=== PATIENT | female | born 1945 | race Caucasian/White ===

== ENCOUNTER → 2016-10-08 | Outpatient (CLI) | payer MEDICARE ==
[~2016-10-08] MED LIST: APIX5TAB PO; ASPI-999 PO; BUPR300T51 PO; CALC-794 PO; DOCU-143 PO; ESCI20TA45 PO; FURO-125 PO; GABA-486 PO; HYDR-3816 PO; LISI1TAB6 PO; LORA0.5T PO; MELA5TAB14 PO; MELO15TA39 PO; METO-333 PO; METO100T2 PO; MULT-35 PO; OXYC-464 PO; POTA10CA43 PO; ROSU10TA PO; VITA1TAB44 PO
--- OUTSIDE RECORDS SUMMARY | 2016-10-08 15:36 | XMS REPORT | Continuity of Care Document ---
Author Author [facility] Organization [facility] Address Unknown Phone Unavailable Care Team Providers Care Implementation Director Name Role Phone Self, Noble PCP [phone] Source Comments Some departments are not documenting in the electronic medical record. If you do not see the information that you expected, contact Release of Information in the Health Information Management department at [phone] for further assistance in locating additional records.[facility] Active Allergies and Adverse Reactions Not on File Current Medications Not on file Active Problems Not on file Social History Tobacco Use Types Packs/Day Years Used Date Never Assessed Plan of Care Health Maintenance Due Date Last Done Comments Physical (Comprehensive) 1952 Exam Pertussis Vaccine 1956 Tetanus Vaccine 1962 Breast Cancer Screening 1985 Colorectal Cancer 1995 Screening Shingles Vaccine 2005 Osteoporosis Screening 2010 Prevnar/Pneumovax (#1) 2010 Influenza Vaccine 05/02/2016 Results from Last 3 Months Not on file
[2016-10-08 16:24] LABS: ALBUMIN 4.2 G/DL (3.2-4.5); ANION GAP 8 MMOL/L (5-14); BLOOD UREA NITROGEN 12 MG/DL (7-18); BUN/CREATININE RATIO 14; CALCIUM 10.3 MG/DL (8.5-10.1); CARBON DIOXIDE 29 MMOL/L (21-32); CHLORIDE 102 MMOL/L (98-107); CREATININE SERUM 0.84 MG/DL (0.60-1.30); GFR ESTIMATED > 60; GLUCOSE 92 MG/DL (70-105); MAGNESIUM 1.9 MG/DL (1.8-2.4); PHOSPHORUS 2.4 MG/DL (2.3-4.7); POTASSIUM 3.8 MMOL/L (3.6-5.0); SODIUM 139 MMOL/L (135-145)
== END ==
LOC: LAB 15:32
PROVIDERS: ATTEND Internal Medicine Critical Care Medicine
DX: I10 Essential (primary) hypertension (principal)
CPT/HCPCS: 36415; 80069; 83735

== ENCOUNTER → 2017-02-04 | Outpatient (CLI) | payer MEDICARE ==
[2017-02-04 16:04] LABS: ALBUMIN 4.4 G/DL (3.2-4.5); CALCIUM 10.2 MG/DL (8.5-10.1); CREATININE SERUM 1.04 MG/DL (0.60-1.30); MAGNESIUM 2.3 MG/DL (1.8-2.4); PHOSPHORUS 2.8 MG/DL (2.3-4.7); POTASSIUM 3.9 MMOL/L (3.6-5.0)
== END ==
LOC: LAB 15:24
PROVIDERS: ATTEND Internal Medicine Critical Care Medicine
DX: I10 Essential (primary) hypertension (principal)
CPT/HCPCS: 36415; 80069; 83735

== ENCOUNTER 2017-03-06 15:34 | Emergency (ER) | payer MEDICARE ==
[~2017-03-06] VITALS: Ht 170.2 cm; Wt 73.7 kg
[2017-03-06 17:15] LABS: BILIRUBIN,URINE NEGATIVE (NEGATIVE); KETONES,URINE NEGATIVE (NEGATIVE); LEUKOCYTE ESTERASE ,URINE NEGATIVE (NEGATIVE); NITRITE,URINE NEGATIVE (NEGATIVE); PH,URINE 7 (5-9); PROTEIN,URINE NEGATIVE (NEGATIVE); UROBILINOGEN,URINE NORMAL (NORMAL)
[2017-03-06 17:29] LABS: WBC,URINE RARE /HPF
--- NOTE | 2017-03-06 17:39 | Diagnostic Imaging Report ---
INDICATION: Fell last night. EXAMINATION: Pelvis and hips dated 03/06/2017. FINDINGS: Five views of the pelvis and hips. There is no evidence for acute fracture or dislocation. The hip joint spaces demonstrate narrowing and spurring. Spurring at the pubic symphysis is also noted. IMPRESSION: 1. No evidence for an acute fracture. Degenerative findings as noted. Dictated by: Dictated on workstation # [id number]
--- NOTE | 2017-03-06 17:44 | Diagnostic Imaging Report ---
EXAMINATION: CT brain, CT cervical spine, CT maxillofacial bones dated 03/06/2017. TECHNIQUE: Multiple contiguous axial images were obtained through the head, neck, and facial bones without the use of intravenous contrast. Sagittal and coronal reformations through the cervical spine and facial bones were also performed. INDICATION: Fell last night, face is bruised. Left eye swelling. COMPARISON: Comparison made to a brain dated 08/10/2009. FINDINGS: BRAIN: Marked diffuse chronic ischemic disease is seen in a periventricular distribution. A definite superimposed acute infarct is not seen although could be of obscured by the diffuse chronic changes. There is no evidence for acute hemorrhage. No mass, mass effect, or midline shift is seen, and there is no hydrocephalus. The calvarium is intact with no acute sinus disease appreciated. IMPRESSION: 1. No acute process within the brain with marked chronic changes as discussed above. CT MAXILLOFACIAL BONES: Soft tissue swelling is noted anterior and inferior to the left globe. The globe itself appears to be intact. The surrounding osseous structures are intact as well. No fractures are identified. There is motion artifact noted along the mandible bilaterally limiting evaluation for an acute fracture, especially on the right as there are multiple lucencies seen in the right mandible on the reconstructed coronal imaging, most likely caused by motion. IMPRESSION: 1. No definite acute osseous abnormality is seen along the maxillofacial bones, although there is motion artifact limiting evaluation with irregularity seen along the right mandible and portions of the left mandible as well. These findings are likely on the basis of the motion artifact, but clinical correlation for any point tenderness in these areas would be recommended. 2. Soft tissue swelling as described. 3. Not mentioned in the body of the report, irregularity along the nasal bones, left worse than right, is noted. This is age indeterminate. An acute nondisplaced fracture is not excluded; correlate for point tenderness. CT CERVICAL SPINE: There is intervertebral disc space narrowing with anterior and posterior spurring at C5-C6 and C6-C7. Remaining levels demonstrate mild degenerative changes to a lesser degree. No significant subluxations are seen. No compression deformities appreciated. Diffuse multilevel facet hypertrophy is seen causing areas of bilateral neural foraminal narrowing. Spur disc complexes are suspected at multiple levels as well. At least moderate central narrowing is seen at C5-C6 and C6-C7. The lung apices are clear. The prevertebral soft tissues demonstrate no evidence for acute disease. IMPRESSION: 1. Degenerative changes throughout the cervical spine as described above with no acute fractures appreciated. Dictated by: Dictated on workstation # [id number]
[2017-03-06 17:53] LABS: BASOPHILS % (AUTO) 1 % (0-10); EOSINOPHILS # (AUTO) 0.3 10^3/uL (0.0-0.3); EOSINOPHILS % (AUTO) 4 % (0-10); LYMPHOCYTES # (AUTO) 1.7 X 10^3 (1.0-4.0); LYMPHOCYTES % (AUTO) 30 % (12-44); MEAN CORPUSCULAR HEMOGLOBIN 31 PG (25-34); MEAN CORPUSCULAR HGB CONC 34 G/DL (32-36); MEAN CORPUSCULAR VOLUME 90 FL (80-99); MEAN PLATELET VOLUME 10.4 FL (7.4-10.4); MONOCYTES # (AUTO) 0.8 X 10^3 (0.0-1.0); MONOCYTES % (AUTO) 14 % (0-12); NEUTROPHILS % (AUTO) 52 % (42-75); PLATELET COUNT 145 10^3/uL (130-400); RED BLOOD COUNT 3.85 10^6/uL (4.35-5.85); RED CELL DISTRIBUTION WIDTH 12.3 % (10.0-14.5); WHITE BLOOD COUNT 5.8 10^3/uL (4.3-11.0)
--- NOTE | 2017-03-06 17:54 | ED General ---
General Chief Complaint: Trauma-Non Activation Stated Complaint: PT FELL/FACIAL BRUISING/BODY PAIN Nursing Triage Note: PT REPORTS FALLING FROM STANDING POSITION LAST NIGHT AND HITTING HER FACE ON AN UNKNOWN OBJECT. PT HAS MODERATE SWELLING AND BRUISING NOTED TO THE L SIDE OF HER FACE. SHE DENIES LOC. Nursing Sepsis Screen: No Definite Risk History of Present Illness Time Seen by Provider: 16:25 Initial Comments Evaluation for bruising left side of face. Patient reports falling yesterday on her sidewalk. She denies loss of consciousness at the time of the fall or headache at the present time. She has had no vision changes since the fall. Location Injury Occurred: PT HOME Timing/Duration: 12-24 Hours Severity: Mild Modifying Factors: improves with Rest Associated Systoms: Denies Symptoms Allergies and Home Medications Allergies Coded Allergies: Penicillins (Unverified Allergy, Unknown, 06/20/15) Home Medications Apixaban 5 Mg Tablet, 5 MG PO BID for 30 Days Prescribed by: MONTY FRANKLIN on 06/22/15 1429 Aspirin 81 Mg Tab.chew, 81 MG PO DAILY, (Reported) B Complex with Vitamin C 1 Each Tablet.er, 1 TAB PO DAILY, (Reported) Bupropion HCl 300 Mg Tab.er.24h, 300 MG PO DAILY, (Reported) Calcium Carb & Citrate/Vit D3 1 Each Tablet.er, 2 TAB PO DAILY, (Reported) Docusate Sodium 100 Mg Capsule, 300 MG PO DAILY, (Reported) Escitalopram Oxalate 20 Mg Tablet, 20 MG PO HS, (Reported) Furosemide 20 Mg Tablet, 20 MG PO DAILY, #30 Prescribed by: MONTY FRANKLIN on 06/22/15 1429 Gabapentin 100 Mg Capsule, 100 MG PO TID, (Reported) Lisinopril/Hydrochlorothiazide 1 Each Tablet, 1 TAB PO DAILY, (Reported) Lorazepam 0.5 Mg Tablet, 0.5 MG PO Q8H PRN for PRN, (Reported) Melatonin 5 Mg Tablet, 5 MG PO HS, (Reported) Meloxicam 15 Mg Tablet, 15 MG PO DAILY, (Reported) Metoprolol Tartrate 100 Mg Tablet, 100 MG PO BID, #60 Prescribed by: MONTY FRANKLIN on 06/22/15 1435 Multivitamin 1 Each Tablet, 1 TAB PO DAILY, (Reported) Oxycodone HCl/Acetaminophen 1 Each Tablet, 1 TAB PO Q4H PRN for PRN, (Reported) Potassium Chloride 10 Meq Capsule.er, 10 MEQ PO BID, (Reported) Rosuvastatin Calcium 10 Mg Tablet, 10 MG PO HS, (Reported) Constitutional: no symptoms reported, see HPI EENTM: other (pain in the left cheek and merline-orbital.), see HPI Respiratory: no symptoms reported, see HPI Cardiovascular: no symptoms reported, see HPI Gastrointestinal: no symptoms reported, see HPI Genitourinary: no symptoms reported, see HPI Musculoskeletal: no symptoms reported, see HPI, joint pain, muscle pain, muscle cramps, other (generalized joint and muscle pain, the patient reports these are chronic in nature. Since the fall she is mainly been having pain in bilateral hips.) Skin: no symptoms reported, see HPI Psychiatric/Neurological: No Symptoms Reported, See HPI Hematologic/Lymphatic: No Symptoms Reported, See HPI Immunological/Allergic: no symptoms reported, see HPI All Other Systems Reviewed Negative Unless Noted: Yes Past Gjffcxy-Pvqmzx-Qljqps Hx Patient Social History Alcohol Use: Denies Use Recreational Drug Use: No Smoking Status: Former Smoker Type Used: Cigarettes Former Smoker/When Quit: Mar 01, 2014 2nd Hand Smoke Exposure: No Recent Foreign Travel: No Contact w/Someone Who Travel: No Recent Infectious Disease Expo: No Recent Hopitalizations: No Immunizations Up To Date Tetanus Booster (TDap): Less than 5yrs PED Vaccines UTD: No Date of Pneumonia Vaccine: Sep 01, 2012 Date of Influenza Vaccine: Jun 13, 2015 Seasonal Allergies Seasonal Allergies: No Surgeries HX Surgeries: Yes (implanted nerve stimulator) Surgeries: Cardiac, Hysterectomy, Tonsillectomy Respiratory Hx Respiratory Disorders: No Cardiovascular Hx Cardiac Disorders: Yes Cardiac Disorders: High Cholesterol, Hypertension, Valvular Heart Disease Neurological Hx Neurological Disorders: Yes (spinal stenosis) Neurological Disorders: Stroke Reproductive System Hx Reproductive Disorders: No Sexually Transmitted Disease: No HIV/AIDS: No Female Reproductive Disorders: Denies 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 Genitourinary Hx Genitourinary Disorders: No Gastrointestinal Hx Gastrointestinal Disorders: No Musculoskeletal Hx Musculoskeletal Disorders: Yes (SPINAL STENOSIS- STIMULATOR IN BACK) Endocrine Hx Endocrine Disorders: No HEENT HX ENT Disorders: No Loss of Vision: Denies Hearing Impairment: Hard of Hearing Cancer Hx Cancer: No Psychosocial Hx Psychiatric Problems: Yes Behavioral Health Disorders: Anxiety, Depression Integumentary HX Skin/Integumentary Disorder: No Blood Transfusions Hx Blood Disorders: No Adverse Reaction to a Blood Tr: No Reviewed Nursing Assessment Reviewed/Agree w Nursing PMH: Yes Family Medical History Significant Family History: No Pertinent Family Hx, Stroke Physical Exam Vital Signs Vital Sign - Last 12Hours 03/06/17 16:25 Temp 98.3 Pulse 57 Resp 16 B/P (MAP) 109/71 Pulse Ox 97 O2 Delivery Room Air Capillary Refill : Less Than 3 Seconds General Appearance: No Apparent Distress, WD/WN Eyes: Right Eye Normal Inspection, Left Eye Other (marked ecchymosis about the left orbit and maxillary arch.), Bilateral Eye EOMI, Bilateral Eye PERRL HEENT: TMs Normal, Normal ENT Inspection, Pharynx Normal, No Photophobia Neck: Full Range of Motion, Normal Inspection, Supple, No Lymphadenopathy (L), No Lymphadenopathy (R), Tender Lateral, Tender Midline Respiratory: Chest Non Tender, Lungs Clear, Normal Breath Sounds Cardiovascular: Regular Rate, Rhythm, No Edema, Normal Peripheral Pulses Gastrointestinal: Normal Bowel Sounds, No Organomegaly, No Pulsatile Mass, Non Tender, Soft Back: Normal Inspection, No CVA Tenderness, No Vertebral Tenderness Extremity: Normal Capillary Refill, Normal Inspection, Normal Range of Motion, No Calf Tenderness, No Pedal Edema, Other (full range of motion to bilateral hips, knees and ankles.) Neurologic/Psychiatric: Alert, Oriented x3, No Motor/Sensory Deficits, Normal Mood/Affect, gravity flow irrigator II-XII Norm as Tested Skin: Normal Color, Warm/Dry Progress/Results/Core Measures Results/Orders Lab Results Laboratory Tests Test 03/06/17 17:03 03/06/17 17:42 Range/Units Urine Color YELLOW Urine Clarity CLEAR Urine pH 7 5-9 Urine Specific [place] 1.005 L 1.016-1.022 Urine Protein NEGATIVE NEGATIVE Urine Glucose (UA) NEGATIVE NEGATIVE Urine Ketones NEGATIVE NEGATIVE Urine Nitrite NEGATIVE NEGATIVE Urine Bilirubin NEGATIVE NEGATIVE Urine Urobilinogen NORMAL NORMAL MG/DL Urine Leukocyte Esterase NEGATIVE NEGATIVE Urine RBC (Auto) NEGATIVE NEGATIVE Urine RBC NONE /HPF Urine WBC RARE /HPF Urine Squamous Epithelial Cells 5-10 /HPF Urine Crystals NONE /LPF Urine Bacteria MODERATE H /HPF Urine Casts NONE /LPF Urine Mucus NEGATIVE /LPF Urine Culture Indicated NO White Blood Count 5.8 4.3-11.0 10^3/uL Red Blood Count 3.85 L 4.35-5.85 10^6/uL Hemoglobin 11.8 11.5-16.0 G/DL Hematocrit 35 35-52 % Mean Corpuscular Volume 90 80-99 FL Mean Corpuscular Hemoglobin 31 25-34 PG Mean Corpuscular Hemoglobin Concent 34 32-36 G/DL Red Cell Distribution Width 12.3 10.0-14.5 % Platelet Count 145 130-400 10^3/uL Mean Platelet Volume 10.4 7.4-10.4 FL Neutrophils (%) (Auto) 52 42-75 % Lymphocytes (%) (Auto) 30 12-44 % Monocytes (%) (Auto) 14 H 0-12 % Eosinophils (%) (Auto) 4 0-10 % Basophils (%) (Auto) 1 0-10 % Neutrophils # (Auto) 3.0 1.8-7.8 X 10^3 Lymphocytes # (Auto) 1.7 1.0-4.0 X 10^3 Monocytes # (Auto) 0.8 0.0-1.0 X 10^3 Eosinophils # (Auto) 0.3 0.0-0.3 10^3/uL Basophils # (Auto) 0.0 0.0-0.1 10^3/uL Prothrombin Time 16.5 H 12.2-14.7 SEC INR Comment 1.4 0.8-1.4 Activated Partial Thromboplast Time 41 H 24-35 SEC Sodium Level 137 135-145 MMOL/L Potassium Level 4.0 3.6-5.0 MMOL/L Chloride Level 99 98-107 MMOL/L Carbon Dioxide Level 31 21-32 MMOL/L Anion Gap 7 5-14 MMOL/L Blood Urea Nitrogen 18 7-18 MG/DL Creatinine 1.14 0.60-1.30 MG/DL Estimat Glomerular Filtration Rate 47 BUN/Creatinine Ratio 16 Glucose Level 87 70-105 MG/DL Calcium Level 9.9 8.5-10.1 MG/DL Total Bilirubin 0.8 0.1-1.0 MG/DL Aspartate Amino Transf (AST/SGOT) 22 5-34 U/L Alanine Aminotransferase (ALT/SGPT) 18 0-55 U/L Alkaline Phosphatase 78 40-136 U/L Total Protein 6.6 6.4-8.2 GM/DL Albumin 4.0 3.2-4.5 GM/DL My Orders Orders - NEAL WEISS Cbc With Automated Diff (7/6/17 16:38) Comprehensive Metabolic Panel (03/06/17 16:38) Protime With Inr (03/06/17 16:38) Partial Thromboplastin Time (03/06/17 16:38) Ua Culture If Indicated (03/06/17 16:38) Ct Head/Face/Cervical Wo (03/06/17 16:38) Pelvis/Guille Hips 3-4 Views (03/06/17 17:06) Vital Signs/I&O Vital Sign - Last 12Hours 03/06/17 16:25 Temp 98.3 Pulse 57 Resp 16 B/P (MAP) 109/71 Pulse Ox 97 O2 Delivery Room Air Blood Pressure Mean: 84 Progress Note : Time: 16:25 Progress Note Initial evaluation completed. Recommended CT of the head and face and cervical spine. As well as x-ray of the pelvis and bilateral hips. CBC, PT PTT and INR, CMP and UA. Patient declined any need for pain medication or muscle relaxants at this time. [address] and x-rays with the patient and her daughter, no acute injuries noted. 1745 reviewed discharge plans with the patient and her daughter, no questions or concerns at this time. She'll follow up with Dr. Banks Diagnostic Imaging Diagonstic Imaging: CT Plain Films/CT/US/NM/MRI: c-spine, head, other (face) Comments NAME: YUNIEL DE GUZMAN [facility] REC#: [id number] PT STATUS: REG ER : 1945 PHYSICIAN: NEAL WEISS ADMIT DATE: 03/06/17/ER Draft Date of Exam:03/06/17 CT HEAD/FACE/CERVICAL WO EXAMINATION: CT brain, CT cervical spine, CT maxillofacial bones dated 03/06/2017. TECHNIQUE: Multiple contiguous axial images were obtained through the head, neck, and facial bones without the use of intravenous contrast. Sagittal and coronal reformations through the cervical spine and facial bones were also performed. INDICATION: Fell last night, face is bruised. Left eye swelling. COMPARISON: Comparison made to a brain dated 08/10/2009. FINDINGS: BRAIN: Marked diffuse chronic ischemic disease is seen in a periventricular distribution. A definite superimposed acute infarct is not seen although could be of obscured by the diffuse chronic changes. There is no evidence for acute hemorrhage. No mass, mass effect, or midline shift is seen, and there is no hydrocephalus. The calvarium is intact with no acute sinus disease appreciated. IMPRESSION: 1. No acute process within the brain with marked chronic changes as discussed above. CT MAXILLOFACIAL BONES: Soft tissue swelling is noted anterior and inferior to the left globe. The globe itself appears to be intact. The surrounding osseous structures are intact as well. No fractures are identified. There is motion artifact noted along the mandible bilaterally limiting evaluation for an acute fracture, especially on the right as there are multiple lucencies seen in the right mandible on the reconstructed coronal imaging, most likely caused by motion. IMPRESSION: 1. No definite acute osseous abnormality is seen along the maxillofacial bones, although there is motion artifact limiting evaluation with irregularity seen along the right mandible and portions of the left mandible as well. These findings are likely on the basis of the motion artifact, but clinical correlation for any point tenderness in these areas would be recommended. 2. Soft tissue swelling as described. 3. Not mentioned in the body of the report, irregularity along the nasal bones, left worse than right, is noted. This is age indeterminate. An acute nondisplaced fracture is not excluded; correlate for point tenderness. CT CERVICAL SPINE: There is intervertebral disc space narrowing with anterior and posterior spurring at C5-C6 and C6-C7. Remaining levels demonstrate mild degenerative changes to a lesser degree. No significant subluxations are seen. No compression deformities appreciated. Diffuse multilevel facet hypertrophy is seen causing areas of bilateral neural foraminal narrowing. Spur disc complexes are suspected at multiple levels as well. At least moderate central narrowing is seen at C5-C6 and C6-C7. The lung apices are clear. The prevertebral soft tissues demonstrate no evidence for acute disease. IMPRESSION: 1. Degenerative changes throughout the cervical spine as described above with no acute fractures appreciated. Dictated on workstation # [id number] Dict: 03/06/17 1726 Trans: 03/06/17 1743 [id number] Interpreted by: LORY MAX MD Electronically signed by: Diagonstic Imaging: Xray Plain Films/CT/US/NM/MRI: pelvis Comments NAME: YUNIEL DE GUZMAN Cecelia [facility] REC#: [id number] PT STATUS: REG ER : 1945 PHYSICIAN: NEAL WEISS ADMIT DATE: 03/06/17/ER Draft Date of Exam:03/06/17 PELVIS/GUILLE HIPS 3-4 VIEWS INDICATION: Fell last night. EXAMINATION: Pelvis and hips dated 03/06/2017. FINDINGS: Five views of the pelvis and hips. There is no evidence for acute fracture or dislocation. The hip joint spaces demonstrate narrowing and spurring. Spurring at the pubic symphysis is also noted. IMPRESSION: 1. No evidence for an acute fracture. Degenerative findings as noted. Dictated on workstation # [id number] Dict: 03/06/17 173 Trans: 03/06/17 173 [id number] Interpreted by: LORY MAX MD Electronically signed by: Departure Impression Impression: Primary Impression: Fall Qualified Codes: W19.XXXA - Unspecified fall, initial encounter Additional Impression: Contusion of face Qualified Codes: S00.83XA - Contusion of other part of head, initial encounter Disposition: 01 HOME, SELF-CARE Condition: Stable Departure-Patient Inst. Decision time for Depature: 18:00 Referrals: CAPRI BANKS MD (PCP/Family) Primary Care Physician Patient Instructions: Contusion (DC), Eye Contusion (DC), Preventing Falls in the Older Adult Add. Discharge Instructions: Ice packs to left side of face 20 minutes every 2 hours. Tylenol 650 mg every 6 hours for pain. Return to emergency department for headache, visual changes, dizziness, new complaints or concerns. Follow-up with Dr. Banks next week. All discharge instructions reviewed with patient and/or family. Voiced understanding. Copy Copies To 1: CAPRI BANKS MD, AMY ARNP Mar 06, 2017 17:54
[2017-03-06 18:03] LABS: INR 1.4 (0.8-1.4); PROTHROMBIN TIME PATIENT 16.5 SEC (12.2-14.7)
[2017-03-06 18:14] LABS: BILIRUBIN,TOTAL 0.8 MG/DL (0.1-1.0); CALCIUM 9.9 MG/DL (8.5-10.1); CREATININE SERUM 1.14 MG/DL (0.60-1.30); TOTAL PROTEIN 6.6 GM/DL (6.4-8.2)
[2017-03-06 18:26] VITALS: BP 109/71
--- OUTSIDE RECORDS SUMMARY | 2017-03-11 04:06 | XMS REPORT | Continuity of Care Document ---
Author Author [facility] Organization [facility] Address Unknown Phone Unavailable Care Team Providers Care Director Of Sustainability Programs Name Role Phone Self, oNble PCP [phone] Source Comments Some departments are not documenting in the electronic medical record. If you do not see the information that you expected, contact Release of Information in the Health Information Management department at [phone] for further assistance in locating additional records.[facility] Active Allergies and Adverse Reactions Not on File Current Medications Not on file Active Problems Not on file Social History Tobacco Use Types Packs/Day Years Used Date Never Assessed Plan of Care Health Maintenance Due Date Last Done Comments Hepatitis C Screening 1945 Physical (Comprehensive) 1952 Exam Pertussis Vaccine 1956 Tetanus Vaccine 1962 Breast Cancer Screening 1985 Colorectal Cancer 1995 Screening Shingles Vaccine 2005 Osteoporosis Screening 2010 Prevnar/Pneumovax (#1) 2010 Influenza Vaccine 05/02/2017 Results from Last 3 Months Not on file
--- OUTSIDE RECORDS SUMMARY | 2017-03-11 04:07 | XMS REPORT | Continuity of Care Document ---
Author Author [facility] Organization [facility] Address Unknown Phone Unavailable Allergies Active Description Code Type Severity Reaction Onset Reported/Identified Relationship to Patient Clinical Status Yes Penicillins [id number] Drug Allergy Unknown N/A 06/20/2015 Medications Problems Date Dx Coded Attending Type Code Diagnosis Diagnosed By 01/09/2012 Ot 724.4 LUMBOSACRAL NEURITIS NOS 01/09/2012 Ot V57.1 PHYSICAL THERAPY NEC 06/21/2015 TYREE MANSFIELD, Janes FREEMAN Ot E78.0 06/21/2015 TYREE MANSFIELD, Janes FREEMAN Ot F32.9 06/21/2015 TYREE MANSFIELD, Janes FREEMAN Ot F41.9 06/21/2015 TYREE MANSFIELD, Janes FREEMAN Ot I10 06/21/2015 TYREE MANSFIELD, Janes FREEMAN Ot I34.0 06/21/2015 TYREE MANSFIELD, Janes FREEMAN Ot I42.9 06/21/2015 TYREE MANSFIELD, Janes FREEMAN Ot I48.91 06/21/2015 TYREE MANSFIELD, Janes FREEMAN Ot I50.21 06/21/2015 TYREE MANSFIELD, Janes FREEMAN Ot M48.00 06/21/2015 TYREE MANSFIELD, Janes FREEMAN Ot Z86.73 06/21/2015 TYREE MANSFIELD, Janes FREEMAN Ot Z87.891 06/21/2015 TYREE MANSFIELD, Janes FREEMAN Ot E78.0 06/21/2015 TYREE MANSFIELD, Janes FREEMAN Ot F32.9 06/21/2015 TYREE MANSFIELD, Janes FREEMAN Ot F41.9 06/21/2015 TYREE MANSFIELD, Janes FREEMAN Ot I10 06/21/2015 TYREE MANSFIELD, Janes FREEMAN Ot I48.91 06/21/2015 TYREE MANSFIELD, M PETE Ot M48.00 06/21/2015 TYREE MANSFIELD, M PETE Ot R07.89 06/21/2015 TYREE MANSFIELD, M PETE Ot R11.0 06/21/2015 TYREE MANSFIELD, M PETE Ot Z86.73 06/21/2015 TYREE MANSFIELD, M PETE Ot Z87.891 06/22/2015 TYREE MANSFIELD, M PETE Ot E78.0 06/22/2015 TYREE MANSFIELD, M PETE Ot F32.9 06/22/2015 TYREE MANSFIELD, M PETE Ot F41.9 06/22/2015 TYREE MANSFIELD, M PETE Ot I10 06/22/2015 TYREE MANSFIELD, M PETE Ot I48.91 06/22/2015 TYREE MANSFIELD, M PETE Ot M48.00 06/22/2015 TYREE MANSFIELD, M PETE Ot R07.89 06/22/2015 TYREE MANSFIELD, M PETE Ot R11.0 06/22/2015 TYREE MANSFIELD, M PETE Ot Z86.73 06/22/2015 TYREE MANSFIELD, M PETE Ot Z87.891 06/22/2015 TYREE MANSFIELD, M PETE Ot E78.0 06/22/2015 TYREE MANSFIELD, M PETE Ot F32.9 06/22/2015 TYREE MANSFIELD, M PETE Ot F41.9 06/22/2015 TYREE MANSFIELD, M PETE Ot I10 06/22/2015 TYREE MANSFIELD, M PETE Ot I48.91 06/22/2015 TYREE MANSFIELD, M PETE Ot M48.00 06/22/2015 TYREE MANSFIELD, M PETE Ot R07.89 06/22/2015 TYREE MANSFIELD, M PETE Ot R11.0 06/22/2015 TYREE MANSFIELD, M PETE Ot Z86.73 06/22/2015 TYREE MANSFIELD, M PETE Ot Z87.891 06/22/2015 TYREE MANSFIELD, M PETE Ot E78.0 PURE HYPERCHOLESTEROLEMIA 06/22/2015 TYREE MANSFIELD, Janes FREEMAN Ot F32.9 MAJOR DEPRESSIVE DISORDER, SINGLE EPISOD 06/22/2015 TYREE MANSFIELD, Janes FREEMAN Ot F41.9 ANXIETY DISORDER, UNSPECIFIED 06/22/2015 TYREE MANSFIELD, Janes FREEMAN Ot I10 ESSENTIAL (PRIMARY) HYPERTENSION 06/22/2015 TYREE MANSFIELD, Janes FREEMAN Ot I34.0 NONRHEUMATIC MITRAL (VALVE) INSUFFICIENC 06/22/2015 TYREE MANSFIELD, Janes FREEMAN Ot I42.9 CARDIOMYOPATHY, UNSPECIFIED 06/22/2015 Janes CLEMENTS MD Ot I48.91 UNSPECIFIED ATRIAL FIBRILLATION 06/22/2015 Janes CLEMENTS MD Ot I50.21 ACUTE SYSTOLIC (CONGESTIVE) HEART FAILUR 06/22/2015 Janes CLEMENTS MD Ot M48.00 SPINAL STENOSIS, SITE UNSPECIFIED 06/22/2015 Janes CLEMENTS MD Ot R07.89 06/22/2015 Janes CLEMENTS MD Ot R11.0 06/22/2015 Janes CLEMENTS MD Ot Z86.73 PRSNL HX OF TIA (TIA), AND CEREB INFRC W 06/22/2015 TYREE MANSFIELD, Janes FREEMAN Ot Z87.891 PERSONAL HISTORY OF NICOTINE DEPENDENCE 06/22/2015 TYREE MANSFIELD, Janes FREEMAN Ot E78.0 06/22/2015 TYREE MANSFIELD, Janes FREEMAN Ot F32.9 06/22/2015 Janes CLEMENTS MD Ot F41.9 06/22/2015 Janes CLEMENTS MD Ot I10 06/22/2015 Janes CLEMENTS MD Ot I48.91 06/22/2015 Janes CLEMENTS MD Ot M48.00 06/22/2015 Janes CLEMENTS MD Ot R07.89 06/22/2015 TYREE MANSFIELD, Janes FREEMAN Ot R11.0 06/22/2015 Janes CLEMENTS MD Ot Z86.73 06/22/2015 Janes CLEMENTS MDN Ot Z87.891 08/16/2015 TYREE MANSFIELD, M PETE Ot E78.0 08/16/2015 TYREE MANSFIELD, M PETE Ot F32.9 08/16/2015 TYREE MANSFIELD, M PETE Ot F41.9 08/16/2015 TYREE MANSFIELD, M PETE Ot I10 08/16/2015 TYREE MANSFIELD, M PETE Ot I34.0 08/16/2015 TYREE MANSFIELD, M PETE Ot I42.9 08/16/2015 TYREE MANSFIELD, M PETE Ot I48.91 08/16/2015 TYREE MANSFIELD, M PETE Ot I50.21 08/16/2015 TYREE MANSFIELD, M PETE Ot M48.00 08/16/2015 TYREE MANSFIELD, M PETE Ot Z86.73 08/16/2015 TYREE MANSFIELD, M PETE Ot Z87.891 11/21/2015 FITO MANSFIELD, ELLY R Ot Z48.812 11/21/2015 FITO MANSFIELD, ELLY R Ot Z95.2 01/11/2016 ELLY PAYTON MD R Ot Z48.812 ENCNTR FOR SURGICAL AFTCR FOLLOWING SURG 01/11/2016 ELLY PAYTON MD R Ot Z95.2 PRESENCE OF PROSTHETIC HEART VALVE 01/12/2016 ELLY PAYTON MD R Ot Z48.812 ENCNTR FOR SURGICAL AFTCR FOLLOWING SURG 01/12/2016 ELLY PAYTON MD R Ot Z95.2 PRESENCE OF PROSTHETIC HEART VALVE 01/12/2016 ELLY PAYTON MD R Ot Z48.812 ENCNTR FOR SURGICAL AFTCR FOLLOWING SURG 01/12/2016 ELLY PAYTON MD R Ot Z95.2 PRESENCE OF PROSTHETIC HEART VALVE 01/12/2016 ELLY PAYTON MD R Ot Z48.812 ENCNTR FOR SURGICAL AFTCR FOLLOWING SURG 01/12/2016 ELLY PAYTON MD R Ot Z95.2 PRESENCE OF PROSTHETIC HEART VALVE 01/15/2016 FITO MANSFIELD, ELLY R Ot Z48.812 ENCNTR FOR SURGICAL AFTCR FOLLOWING SURG 01/15/2016 FITO MANSFIELD, ELLY R Ot Z95.2 PRESENCE OF PROSTHETIC HEART VALVE 01/16/2016 FITO MANSFIELD, ELLY R Ot I10 ESSENTIAL (PRIMARY) HYPERTENSION 01/16/2016 FITO MANSFIELD, ELLY R Ot I42.9 CARDIOMYOPATHY, UNSPECIFIED 01/16/2016 FITO MANSFIELD, ELLY R Ot I48.0 PAROXYSMAL ATRIAL FIBRILLATION 01/16/2016 FITO MANSFIELD, ELLY R Ot Z98.89 OTHER SPECIFIED POSTPROCEDURAL STATES 02/14/2016 FITO MANSFIELD, ELLY R Ot I10 ESSENTIAL (PRIMARY) HYPERTENSION 02/16/2016 FITO MANSFIELD, ELLY R Ot I10 ESSENTIAL (PRIMARY) HYPERTENSION 02/16/2016 FITO MANSFIELD, ELLY R Ot I42.9 CARDIOMYOPATHY, UNSPECIFIED 02/16/2016 FITO MANSFIELD, ELLY R Ot I48.0 PAROXYSMAL ATRIAL FIBRILLATION 02/16/2016 FITO MANSFIELD, ELLY R Ot Z98.89 OTHER SPECIFIED POSTPROCEDURAL STATES 02/23/2016 ELLY PAYTON MD R Ot I10 ESSENTIAL (PRIMARY) HYPERTENSION 02/23/2016 FITO MANSFIELD, ELLY R Ot I42.9 CARDIOMYOPATHY, UNSPECIFIED 02/23/2016 FITO MANSFIELD, ELLY R Ot I48.0 PAROXYSMAL ATRIAL FIBRILLATION 02/23/2016 FITO MANSFIELD, ELLY R Ot Z98.89 OTHER SPECIFIED POSTPROCEDURAL STATES 02/23/2016 ELLY PAYTON MD R Ot I10 ESSENTIAL (PRIMARY) HYPERTENSION 02/23/2016 ELLY PAYTON MD R Ot I42.9 CARDIOMYOPATHY, UNSPECIFIED 02/23/2016 FITO MANSFIELD, ELLY R Ot I48.0 PAROXYSMAL ATRIAL FIBRILLATION 02/23/2016 ELLY PAYTON MD R Ot Z98.89 OTHER SPECIFIED POSTPROCEDURAL STATES 03/06/2016 ELLY PAYTON MD R Ot I10 ESSENTIAL (PRIMARY) HYPERTENSION 03/13/2016 FITO MANSFIELD, ELLY R Ot I10 ESSENTIAL (PRIMARY) HYPERTENSION 03/13/2016 FITO MANSFIELD, ELLY R Ot I42.9 CARDIOMYOPATHY, UNSPECIFIED 03/13/2016 FITO MANSFIELD, ELLY R Ot I48.0 PAROXYSMAL ATRIAL FIBRILLATION 03/13/2016 FITO MANSFIELD, ELLY R Ot Z98.89 OTHER SPECIFIED POSTPROCEDURAL STATES 03/13/2016 ELLY PAYTON MD R Ot I10 ESSENTIAL (PRIMARY) HYPERTENSION 03/22/2016 FITO MANSFIELD, ELLY R Ot I10 ESSENTIAL (PRIMARY) HYPERTENSION 03/22/2016 FITO MANSFIELD, ELLY R Ot I10 ESSENTIAL (PRIMARY) HYPERTENSION 04/05/2016 FITO MANSFIELD, ELLY R Ot Z48.812 ENCNTR FOR SURGICAL AFTCR FOLLOWING SURG 04/05/2016 ELLY PAYTON MD R Ot Z95.2 PRESENCE OF PROSTHETIC HEART VALVE 04/11/2016 ELLY PAYTON MD R Ot Z48.812 ENCNTR FOR SURGICAL AFTCR FOLLOWING SURG 04/11/2016 ELLY PAYTON MD R Ot Z95.2 PRESENCE OF PROSTHETIC HEART VALVE 04/12/2016 ELLY PAYTON MD R Ot Z48.812 ENCNTR FOR SURGICAL AFTCR FOLLOWING SURG 04/12/2016 ELLY PAYTON MD R Ot Z95.2 PRESENCE OF PROSTHETIC HEART VALVE 10/08/2016 ELLY PAYTON MD R Ot I10 ESSENTIAL (PRIMARY) HYPERTENSION 10/08/2016 ELLY PAYTON MD R Ot I42.9 CARDIOMYOPATHY, UNSPECIFIED 10/08/2016 FITO MANSFIELD, ELLY R Ot I48.0 PAROXYSMAL ATRIAL FIBRILLATION 10/08/2016 ELLY PAYTON MD R Ot Z98.89 OTHER SPECIFIED POSTPROCEDURAL STATES 10/08/2016 ELLY PAYTON MD R Ot I10 ESSENTIAL (PRIMARY) HYPERTENSION 10/08/2016 ELLY PAYTON MD R Ot Z48.812 ENCNTR FOR SURGICAL AFTCR FOLLOWING SURG 10/08/2016 ELLY PAYTON MD R Ot Z95.2 PRESENCE OF PROSTHETIC HEART VALVE 10/08/2016 ELLY PAYTON MD, Ot I10 ESSENTIAL (PRIMARY) HYPERTENSION 10/08/2016 ELLY PAYTON MD Ot I42.9 CARDIOMYOPATHY, UNSPECIFIED 10/08/2016 ELLY PAYTON MD, Ot I48.0 PAROXYSMAL ATRIAL FIBRILLATION 10/08/2016 ELLY PAYTON MD Ot Z98.89 OTHER SPECIFIED POSTPROCEDURAL STATES 10/08/2016 ELLY APYTON MD, Ot I10 ESSENTIAL (PRIMARY) HYPERTENSION 10/08/2016 ELLY PAYTON MD, Ot Z48.812 ENCNTR FOR SURGICAL AFTCR FOLLOWING SURG 10/08/2016 ELLY PAYTON MD, Ot Z95.2 PRESENCE OF PROSTHETIC HEART VALVE 10/09/2016 ELLY PAYTON MD Ot I10 ESSENTIAL (PRIMARY) HYPERTENSION 10/29/2016 ELLY PAYTON MD Ot I10 ESSENTIAL (PRIMARY) HYPERTENSION 01/21/2017 ELLY PAYTON MD Ot I10 ESSENTIAL (PRIMARY) HYPERTENSION 01/21/2017 ELLY PAYTON MD, Ot I10 ESSENTIAL (PRIMARY) HYPERTENSION 02/25/2017 ELLY PAYTON MD Ot I10 ESSENTIAL (PRIMARY) HYPERTENSION Procedures Results Test Result Range Serum or plasma renal function panel (Na, K, Cl, CO2, BUN, Cr, glucose,Ca, phos , alb) - 10/08/16 15:43 Serum or plasma sodium measurement (moles/volume) 139 mmol/ L 135-145 Serum or plasma potassium measurement (moles/volume) 3.8 mmol/L 3.6-5.0 Serum or plasma chloride measurement (moles/volume) 102 mmol /L 98-107 Carbon dioxide 29 mmol/L 21-32 Serum or plasma anion gap determination (moles/volume) 8 mmol/L 5-14 Serum or plasma urea nitrogen measurement (mass/volume) 12 mg/dL 7-18 Serum or plasma creatinine measurement (mass/volume) 0.84 mg /dL 0.60-1.30 Serum or plasma urea nitrogen/creatinine mass ratio 14 NRG Serum or plasma creatinine measurement with calculation of estimated glomerular filtration rate > NRG Serum or plasma glucose measurement (mass/volume) 92 mg/dL 70-105 Serum or plasma calcium measurement (mass/volume) 10.3 mg/ dL 8.5-10.1 Serum or plasma albumin measurement (mass/volume) 4.2 g/dL 3.2-4.5 Serum or plasma phosphate measurement (mass/volume) 2.4 mg/ dL 2.3-4.7 Magnesium - 10/08/16 15:43 Magnesium 1.9 mg/dL 1.8-2.4 Serum or plasma renal function panel (Na, K, Cl, CO2, BUN, Cr, glucose,Ca, phos , alb) - 02/04/17 15:36 Serum or plasma sodium measurement (moles/volume) 139 mmol/ L 135-145 Serum or plasma potassium measurement (moles/volume) 3.9 mmol/L 3.6-5.0 Serum or plasma chloride measurement (moles/volume) 100 mmol /L 98-107 Carbon dioxide 30 mmol/L 21-32 Serum or plasma anion gap determination (moles/volume) 9 mmol/L 5-14 Serum or plasma urea nitrogen measurement (mass/volume) 16 mg/dL 7-18 Serum or plasma creatinine measurement (mass/volume) 1.04 mg /dL 0.60-1.30 Serum or plasma urea nitrogen/creatinine mass ratio 15 NRG Serum or plasma creatinine measurement with calculation of estimated glomerular filtration rate 52 NRG Serum or plasma glucose measurement (mass/volume) 109 mg/dL 70-105 Serum or plasma calcium measurement (mass/volume) 10.2 mg/ dL 8.5-10.1 Serum or plasma albumin measurement (mass/volume) 4.4 g/dL 3.2-4.5 Serum or plasma phosphate measurement (mass/volume) 2.8 mg/ dL 2.3-4.7 Magnesium - 02/04/17 15:36 Magnesium 2.3 mg/dL 1.8-2.4 Complete urinalysis with reflex to culture - 03/06/17 17:03 Urine color determination YELLOW NRG Urine clarity determination CLEAR NRG Urine pH measurement by test strip 7 5- 9 Specific gravity of urine by test strip 1.005 1.016-1.022 Urine protein assay by test strip, semi-quantitative NEGATIVE NEGATIVE Urine glucose detection by automated test strip NEGATIVE NEGATIVE Erythrocytes detection in urine sediment by light microscopy NEGATIVE NEGATIVE Urine ketones detection by automated test strip NEGATIVE NEGATIVE Urine nitrite detection by test strip NEGATIVE NEGATIVE Urine total bilirubin detection by test strip NEGATIVE NEGATIVE Urine urobilinogen measurement by automated test strip (mass/volume) NORMAL NORMAL Urine leukocyte esterase detection by dipstick NEGATIVE NEGATIVE Automated urine sediment erythrocyte count by microscopy (number/high power field) NONE NRG Automated urine sediment leukocyte count by microscopy (number/high power field ) RARE NRG Bacteria detection in urine sediment by light microscopy MODERATE NRG Squamous epithelial cells detection in urine sediment by light microscopy 5-10 NRG Crystals detection in urine sediment by light microscopy NONE NRG Casts detection in urine sediment by light microscopy NONE NRG Mucus detection in urine sediment by light microscopy NEGATIVE NRG Complete urinalysis with reflex to culture NO NRG Complete blood count (CBC) with automated white blood cell (WBC) differential - 03/06/17 17:42 Blood leukocytes automated count (number/volume) 5.8 10*3/ uL 4.3-11.0 Blood erythrocytes automated count (number/volume) 3.85 10*6 /uL 4.35-5.85 Venous blood hemoglobin measurement (mass/volume) 11.8 g/dL 11.5-16.0 Blood hematocrit (volume fraction) 35 % 35-52 Automated erythrocyte mean corpuscular volume 90 [foz_us] 80-99 Automated erythrocyte mean corpuscular hemoglobin (mass per erythrocyte) 31 pg 25-34 Automated erythrocyte mean corpuscular hemoglobin concentration measurement ( mass/volume) 34 g/dL 32-36 Automated erythrocyte distribution width ratio 12.3 % 10.0-14.5 Automated blood platelet count (count/volume) 145 10*3/uL 130-400 Automated blood platelet mean volume measurement 10.4 [foz_ us] 7.4-10.4 Automated blood neutrophils/100 leukocytes 52 % 42-75 Automated blood lymphocytes/100 leukocytes 30 % 12-44 Blood monocytes/100 leukocytes 14 % 0-12 Automated blood eosinophils/100 leukocytes 4 % 0-10 Automated blood basophils/100 leukocytes 1 % 0-10 Blood neutrophils automated count (number/volume) 3.0 10*3 1.8-7.8 Blood lymphocytes automated count (number/volume) 1.7 10*3 1.0-4.0 Blood monocytes automated count (number/volume) 0.8 10*3 0.0-1.0 Automated eosinophil count 0.3 10*3/uL 0.0-0.3 Automated blood basophil count (count/volume) 0.0 10*3/uL 0.0-0.1 Comprehensive metabolic panel - 03/06/17 17:42 Serum or plasma sodium measurement (moles/volume) 137 mmol/ L 135-145 Serum or plasma potassium measurement (moles/volume) 4.0 mmol/L 3.6-5.0 Serum or plasma chloride measurement (moles/volume) 99 mmol/ L 98-107 Carbon dioxide 31 mmol/L 21-32 Serum or plasma anion gap determination (moles/volume) 7 mmol/L 5-14 Serum or plasma urea nitrogen measurement (mass/volume) 18 mg/dL 7-18 Serum or plasma creatinine measurement (mass/volume) 1.14 mg /dL 0.60-1.30 Serum or plasma urea nitrogen/creatinine mass ratio 16 NRG Serum or plasma creatinine measurement with calculation of estimated glomerular filtration rate 47 NRG Serum or plasma glucose measurement (mass/volume) 87 mg/dL 70-105 Serum or plasma calcium measurement (mass/volume) 9.9 mg/dL 8.5-10.1 Serum or plasma total bilirubin measurement (mass/volume) 0.8 mg/dL 0.1-1.0 Serum or plasma alkaline phosphatase measurement (enzymatic activity/volume) 78 U/L 40-136 Serum or plasma aspartate aminotransferase measurement (enzymatic activity/ volume) 22 U/L 5-34 Serum or plasma alanine aminotransferase measurement (enzymatic activity/volume ) 18 U/L 0-55 Serum or plasma protein measurement (mass/volume) 6.6 g/dL 6.4-8.2 Serum or plasma albumin measurement (mass/volume) 4.0 g/dL 3.2-4.5 PT panel in platelet poor plasma by coagulation assay - 03/06/17 17:42 Prothrombin time (PT) in platelet poor plasma by coagulation assay 16.5 s 12.2-14.7 INR in platelet poor plasma or blood by coagulation assay 1.4 0.8-1.4 Activated partial thromboplastin time (aPTT) in platelet poor plasma bycoagulation assay - 03/06/17 17:42 Activated partial thromboplastin time (aPTT) in platelet poor plasma bycoagulation assay 41 s 24-35 Encounters ACCT No. Visit Date/Time Discharge Status Pt. Type Provider Facility Loc./Unit Complaint [id number] 03/06/2017 15:38:00 2016 18:26:00 DIS Emergency NEAL WEISS [facility] ER PT FELL/FACIAL BRUISING/BODY PAIN [id number] 04/08/2016 11:37:00 2015 00:01:00 DIS Outpatient FITO MANSFIELD, ELLY Rai [facility] CR MVREPAIR [id number] 01/03/2016 11:50:00 2015 00:01:00 DIS Outpatient FITO MANSFIELD, ELLY Rai [facility] CR MVREPAIR [id number] 06/20/2015 22:48:00 2014 14:23:00 DIS Inpatient Janes CLEMENTS MD [facility] CSD NEW ONSET AFIB [id number] 02/04/2017 15:24:00 ACT Outpatient ELLY PAYTON MD [facility] LAB I10 [id number] 10/08/2016 15:32:00 ACT Outpatient ELLY PAYTON MD [facility] LAB HYPERTENSION [id number] 04/12/2016 10:00:[facility] CR MVREPAIR [id number] 02/09/2016 11:03:00 ACT Outpatient ELLY PAYTON MD [facility] LAB HYPERTENSION [id number] 01/15/2016 10:57:00 ACT Outpatient ELLY PAYTON MD [facility] LAB CARDIOMYOPATHY,ATRIAL FIB,MITRAL VALVE REPAIR, HTN [id number] 01/09/2012 11:09:00 Document Registration
== END 2017-03-06 18:26 | disposition home or self-care (01) ==
LOC: EDUNIT# 15:34 → ER 15:38
DX: S00.83XA Contusion of other part of head, initial encounter (principal); I10 Essential (primary) hypertension; E78.00 Pure hypercholesterolemia, unspecified; M48.00 Spinal stenosis, site unspecified; F41.9 Anxiety disorder, unspecified; F32.9 Major depressive disorder, single episode, unspecified; Z86.73 Personal history of transient ischemic attack (TIA), and cerebral infarction without residual deficits; Z79.82 Long term (current) use of aspirin; Z87.891 Personal history of nicotine dependence; Z79.01 Long term (current) use of anticoagulants; W01.10XA Fall on same level from slipping, tripping and stumbling with subsequent striking against unspecified object, initial encounter
CPT/HCPCS: 36415; 70450; 70486; 72125; 73522; 80053; 81000; 85025; 85610; 85730; 99283

== ENCOUNTER → 2019-01-27 | Outpatient (CLI) | payer MEDICARE ==
[~2019-01-27] MED LIST changes: +HYDR-34 PO; -HYDR-3816 PO; +METO100T12 PO; -METO100T2 PO; -ROSU10TA PO; +ROSU10TA22 PO
[2019-01-27 15:16] LABS: BASOPHILS % (AUTO) 1 % (0-10); EOSINOPHILS # (AUTO) 0.1 10^3/uL (0.0-0.3); EOSINOPHILS % (AUTO) 1 % (0-10); HEMATOCRIT 37 % (35-52); HEMOGLOBIN 12.5 G/DL (11.5-16.0); LYMPHOCYTES % (AUTO) 16 % (12-44); MEAN CORPUSCULAR HEMOGLOBIN 30 PG (25-34); MEAN CORPUSCULAR HGB CONC 34 G/DL (32-36); MEAN CORPUSCULAR VOLUME 88 FL (80-99); MEAN PLATELET VOLUME 9.8 FL (7.4-10.4); MONOCYTES # (AUTO) 0.5 X 10^3 (0.0-1.0); MONOCYTES % (AUTO) 8 % (0-12); NEUTROPHILS # (AUTO) 4.6 X 10^3 (1.8-7.8); NEUTROPHILS % (AUTO) 75 % (42-75); PLATELET COUNT 180 10^3/uL (130-400); RED CELL DISTRIBUTION WIDTH 12.9 % (10.0-14.5); WHITE BLOOD COUNT 6.2 10^3/uL (4.3-11.0)
[2019-01-27 15:36] LABS: ALANINE AMINOTRANSFERASE 19 U/L (0-55); ALBUMIN 4.6 GM/DL (3.2-4.5); ALKALINE PHOSPHATASE 67 U/L (40-136); BILIRUBIN,TOTAL 0.5 MG/DL (0.1-1.0); BUN/CREATININE RATIO 13; CALCIUM 11.3 MG/DL (8.5-10.1); CARBON DIOXIDE 29 MMOL/L (21-32); CHLORIDE 103 MMOL/L (98-107); CHOLESTEROL 136 MG/DL (< 200); CREATININE SERUM 1.24 MG/DL (0.60-1.30); GFR ESTIMATED 42; GLUCOSE 109 MG/DL (70-105); HDL CHOLESTEROL 44 MG/DL (40-60); POTASSIUM 4.4 MMOL/L (3.6-5.0); SODIUM 140 MMOL/L (135-145); TOTAL PROTEIN 7.7 GM/DL (6.4-8.2); TRIGLYCERIDES 142 MG/DL (<150); VLDL CHOLESTEROL 28 MG/DL (5-40)
[2019-01-27 16:01] LABS: FREE T4 (FREE THYROXINE) 0.83 NG/DL (0.70-1.48)
== END ==
LOC: LAB 15:01
PROVIDERS: ATTEND Internal Medicine Critical Care Medicine
DX: I10 Essential (primary) hypertension (principal); E78.00 Pure hypercholesterolemia, unspecified; I48.91 Unspecified atrial fibrillation; Z95.2 Presence of prosthetic heart valve
CPT/HCPCS: 36415; 80053; 80061; 80162; 83735; 84439; 84443; 85025

== ENCOUNTER → 2019-07-01 | Outpatient (CLI) | payer MEDICARE ==
[~2019-07-01] MED LIST changes: +DOXY100T2 PO
--- NOTE | 2019-07-01 16:28 | Diagnostic Imaging Report ---
INDICATION: Cough. COMPARISON: 06/21/2015 FINDINGS: Frontal and lateral radiographic views of the chest were obtained and show stable cardiac silhouette and pulmonary vasculature. Sternotomy wires and neurostimulator leads are noted. Note is also made of metallic screw projecting over the region of the right atrium, possibly within the distal esophagus. Lungs show asymmetric volume loss on the right with some atelectasis along the minor fissure. Otherwise, lungs are clear. There is no large effusion or pneumothorax. Osseous structures show scoliotic deformity to the lower thoracic spine with multilevel degenerative changes. IMPRESSION: 1. Metallic screw projecting over the right atrium, potentially within the distal esophagus. Clinical correlation is recommended. If further evaluation is indicated, esophagram would be of benefit. 2. Asymmetric volume loss on the right with atelectasis adjacent to the minor fissure. Dictated by: Dictated on workstation # [id number]
== END ==
LOC: RAD 15:30
PROVIDERS: ATTEND Internal Medicine Critical Care Medicine
DX: J98.11 Atelectasis (principal); R05 Cough; Z98.890 Other specified postprocedural states
CPT/HCPCS: 71046

== ENCOUNTER 2019-07-02 15:41 | Emergency (ER) | payer MEDICARE ==
[~2019-07-02] VITALS: Ht 167.7 cm; Wt 35.7 kg
[~2019-07-02 15:41] MED LIST changes: -DOXY100T2 PO; +LISI1TAB29 PO; -LISI1TAB6 PO
--- NOTE | 2019-07-02 17:44 | ED General ---
General Chief Complaint: Cough/Cold/Flu Symptoms Stated Complaint: ABNORMAL CHEST XR,COUGH Nursing Triage Note: PT AMBULATE TO [facility] WITH C/O "SOMETHING METALIC IN XRAY". PT STATES SHE HAD AN XRAY YESTERDAY ORDERED BY HER PCP AND SOMETHING METALIC WAS SEEN. PT WAS INSTRUCTED TO COME TO ED FOR EVALUATION. Nursing Sepsis Screen: No Definite Risk Source of Information: Patient Exam Limitations: No Limitations History of Present Illness Date Seen by Provider: Jul 02, 2019 Time Seen by Provider: 17:43 Initial Comments To ER with reports of something abnormal in her chest x-ray yesterday, she states there was something metallic found in her esophagus on x-ray which was ordered by her forex trader. She was instructed to come to the ER for repeat x- ray. Timing/Duration: 1-2 Days Severity: Mild Associated Systoms: Denies Symptoms Allergies and Home Medications Allergies Coded Allergies: Penicillins (Unverified Allergy, Unknown, 06/20/15) Home Medications Apixaban 5 Mg Tablet, 5 MG PO BID Prescribed by: MONTY FRANKLIN on 06/22/15 1429 Aspirin 81 Mg Tab.chew, 81 MG PO DAILY, (Reported) B Complex with Vitamin C 1 Each Tablet.er, 1 TAB PO DAILY, (Reported) Bupropion HCl 300 Mg Tab.er.24h, 300 MG PO DAILY, (Reported) Calcium Carb & Citrate/Vit D3 1 Each Tablet.er, 2 TAB PO DAILY, (Reported) Docusate Sodium 100 Mg Capsule, 300 MG PO DAILY, (Reported) Doxycycline Hyclate 100 Mg Tablet, 100 MG PO BID Prescribed by: DUNIA SIERRA on 07/02/191947 Escitalopram Oxalate 20 Mg Tablet, 20 MG PO HS, (Reported) Furosemide 20 Mg Tablet, 20 MG PO DAILY Prescribed by: MONTY FRANKLIN on 06/22/15 1429 Gabapentin 100 Mg Capsule, 100 MG PO TID, (Reported) Lisinopril/Hydrochlorothiazide 1 Each Tablet, 1 TAB PO DAILY, (Reported) Lorazepam 0.5 Mg Tablet, 0.5 MG PO Q8H PRN for PRN, (Reported) Melatonin 5 Mg Tablet, 5 MG PO HS, (Reported) Meloxicam 15 Mg Tablet, 15 MG PO DAILY, (Reported) Metoprolol Tartrate 100 Mg Tablet, 100 MG PO BID Prescribed by: MONTY FRANKLIN on 06/22/15 1435 Multivitamin 1 Each Tablet, 1 TAB PO DAILY, (Reported) Oxycodone HCl/Acetaminophen 1 Each Tablet, 1 TAB PO Q4H PRN for PRN, (Reported) Potassium Chloride 10 Meq Capsule.er, 10 MEQ PO BID, (Reported) Rosuvastatin Calcium 10 Mg Tablet, 10 MG PO HS, (Reported) Patient Home Medication List Home Medication List Reviewed: Yes Review of Systems Review of Systems Constitutional: see HPI EENTM: see HPI Respiratory: cough Cardiovascular: no symptoms reported Genitourinary: no symptoms reported Musculoskeletal: no symptoms reported Skin: no symptoms reported Psychiatric/Neurological: No Symptoms Reported Past Ipmtpuy-Xgvjhn-Qbhkms Hx Patient Social History Alcohol Use: Denies Use Recreational Drug Use: No Smoking Status: Former Smoker Type Used: Cigarettes 2nd Hand Smoke Exposure: No Recent Foreign Travel: No Contact w/Someone Who Travel: No Recent Infectious Disease Expo: No Recent Hopitalizations: No Physical Abuse: No Sexual Abuse: No Mistreated: No Fear: No Immunizations Up To Date Tetanus Booster (TDap): Less than 5yrs PED Vaccines UTD: No Date of Pneumonia Vaccine: Sep 01, 2012 Date of Influenza Vaccine: Jun 13, 2015 Seasonal Allergies Seasonal Allergies: No Past Medical History Surgeries: Yes (implanted nerve stimulator, MITRAL AND TRICUSPID VALVE REPAIRS) Cardiac, Hysterectomy, Tonsillectomy Respiratory: No Currently Using CPAP: No Currently Using BIPAP: No Cardiac: Yes High Cholesterol, Hypertension, Valvular Heart Disease Neurological: Yes (spinal stenosis) Stroke Reproductive Disorders: No Female Reproductive Disorders: Denies 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 Sexually Transmitted Disease: No HIV/AIDS: No Genitourinary: No Gastrointestinal: No Musculoskeletal: Yes (SPINAL STENOSIS- STIMULATOR IN BACK) Endocrine: No Loss of Vision: Denies Hearing Impairment: Hard of Hearing Cancer: No Psychosocial: Yes Anxiety, Depression Integumentary: No Blood Disorders: No Adverse Reaction/Blood Tranf: No Family Medical History No Pertinent Family Hx, Stroke Physical Exam Vital Signs Vital Signs - First Documented 07/02/19 16:35 Temp 37.1 Pulse 68 Resp 18 B/P (MAP) 155/69 (97) O2 Delivery Room Air Capillary Refill : Less Than 3 Seconds Height, Weight, BMI Height: 5'7.00" Weight: 162lbs. 7.0oz. [id number]; 12.00 BMI Method:Stated General Appearance: No Apparent Distress, WD/WN Eyes: Bilateral Eye Normal Inspection, Bilateral Eye PERRL, Bilateral Eye EOMI HEENT: PERRL/EOMI, TMs Normal Neck: Full Range of Motion, Normal Inspection Respiratory: Normal Breath Sounds, No Accessory Muscle Use, No Respiratory Distress Cardiovascular: Regular Rate, Rhythm, Normal Peripheral Pulses Gastrointestinal: Normal Bowel Sounds, Soft Extremity: Normal Capillary Refill, Normal Inspection Neurologic/Psychiatric: Alert, Oriented x3 Skin: Normal Color, Warm/Dry Progress/Results/Core Measures Suspected Sepsis Recent Fever Within 48 Hours: No Infection Criteria Present: None New/Unexplained Altered Menta: No Sepsis Screen: No Definite Risk SIRS Temperature: Pulse: 68 Respiratory Rate: 18 Blood Pressure 155 /69 Mean: 97 Results/Orders My Orders Orders - DUNIA SIERRA APRN Chest Pa/Lat (2 View) (07/02/19 17:42) Ct Chest Wo (07/02/19 18:06) Vital Signs/I&O 07/02/19 07/02/19 16:35 16:40 Temp 37.1 Pulse 68 Resp 18 B/P (MAP) 155/69 (97) O2 Delivery Room Air Room Air Capillary Refill : Less Than 3 Seconds Blood Pressure Mean: 97 POS Diagnostic Imaging Diagonstic Imaging: CT Comments NAME: YUNIEL DE GUZMAN [facility] REC#: [id number] PT STATUS: REG ER : 1945 PHYSICIAN: DUNIA SIERRA APRN ADMIT DATE: 07/02/19/ER Signed POSDate of Exam:07/02/19 CT CHEST WO PROCEDURE: CT chest without contrast. TECHNIQUE: Multiple contiguous axial images were obtained through the chest without the use of intravenous contrast. Auto Exposure Controls were utilized during the CT exam to meet ALARA standards for radiation dose reduction. INDICATION: Foreign body on chest x-ray. COMPARISON: Radiograph from the same date. FINDINGS: Postsurgical changes of a CABG. Precarinal lymph node is mildly enlarged measuring 1.3 cm in AP dimension. No additional adenopathy, though evaluation for adenopathy is limited secondary to lack of intravenous contrast. Scattered vascular calcifications within the thoracic aorta and its branch vessels. No aneurysmal dilatation of the thoracic aorta. Prosthetic cardiac valves are present. No pericardial effusion. No pleural effusion. 1.2 cm metallic density appearing to correspond to a possible screw is present. This corresponds to the abnormality noted on recent radiography. This appears to be posterior and inferior to the inferior right pulmonary vein. Slight extension in the pulmonary vein not excluded based upon imaging. The left lung is clear. Extensive tree-in-bud nodularity is noted within the right upper lobe with additional linear interstitial opacities within the right upper lobe adjacent to the minor fissure. The right lung is otherwise clear. No pneumothorax. Significant mass-like mural thickening of the proximal stomach is noted. 2.7 cm indeterminate left renal hypodensity. Probable large duodenal diverticulum is partially visualized. Stimulator device is present with the battery pack within the posterior left torso with leads extending into the central spinal canal within the mid thoracic spine. Advanced scattered osseous degenerative changes, particularly within the lower thoracic and upper lumbar spine. No acute osseous abnormality. IMPRESSION: 1.2 cm metallic density with the morphology consistent with a screw is identified immediately adjacent and abutting the right inferior pulmonary vein. This is of uncertain etiology, origin, or significance. Recommend clinical correlation. Extensive tree-in-bud nodularity within the right upper lobe which is typically seen with an underlying infectious or inflammatory process. This is associated with a mildly prominent precarinal lymph node which is favored to be reactive in nature. Mass-like mural thickening of the proximal stomach. This may simply relate to gastritis, though neoplasm would be an additional consideration. Nonemergent upper GI examination versus endoscopy is recommended for further evaluation. Indeterminate left renal hypodensity. Statistically this likely relates to a cyst, though is technically indeterminate on this examination. Renal ultrasound could help to further evaluate. Additional findings as above. Dictated by: Dictated on workstation # [id number] Dict: 07/02/191823 Trans: 07/02/19 [id number] Interpreted by: BEAU DANG MD Electronically signed by: BEAU DANG MD 07/02/191849 Departure Impression Primary Impression: thickening of the proximal stomach Additional Impressions: foreign body next to pulmonary vein Pneumonia Disposition: HOME, SELF-CARE Condition: Stable Departure-Patient Inst. Decision time for Depature: 19:47 Referrals: SELFCAPRI MD (PCP/Family) Primary Care Physician Patient Instructions: Pneumonia in Adults Add. Discharge Instructions: 1. Antibiotics as directed for the infected appearance of the right upper lobe. Lung. You need to have an endoscopy which is a camera down the esophagus to look at the esophagus and stomach in the next few weeks because this area appeared thickened on CT scan. The foreign body seen on chest x-ray appears to be a screw, follow-up with Dr. persaud, this should not be of any significance or relationship to any of your symptoms but it does warrant follow-up with Dr. persaud. Scripts Doxycycline Hyclate (Doxycycline Hyclate) 100 Mg Tablet 100 MG PO BID, #14 TAB Prov: DUNIA SIERRA APRN 07/02/19 Copy Copies To 1: SELFCAPRI MD, PETER J APRN Jul 02, 2019 17:43 POS
--- NOTE | 2019-07-02 18:11 | Diagnostic Imaging Report ---
INDICATION: Cough. COMPARISON: 07/01/2019 and 06/21/2015. TECHNIQUE: Frontal and lateral radiographs of the chest are obtained dated 07/02/2019. FINDINGS: Postsurgical changes of a median sternotomy with associated prosthetic cardiac valve is again noted. Stimulator leads are again identified extending into the mid thoracic spine central spinal canal. A 1.1 cm metallic density appearing to correlate to a possible screw is noted within the central aspect of the chest just to the right of midline. This is stable from the prior examination one day prior, though is new since 2014. The cardiac silhouette is within normal limits in size. No significant pulmonary vascular congestion. Scarring within the right midlung. The lungs otherwise appear clear. No pleural effusion. No pneumothorax. Scattered osseous degenerative changes without acute osseous abnormality. IMPRESSION: 1. Metallic density possibly related to a screw is again identified overlying the right lower chest. This could be within the right atrium or possibly within the distal esophagus. This is new since 2014. Recommend clinical correlation. Additionally, a CT of the chest would help to further evaluate exact location of this metallic density. 2. Additional findings as described above including scarring/atelectasis within the right midlung. Dictated by: Dictated on workstation # [id number]
--- NOTE | 2019-07-02 18:40 | Diagnostic Imaging Report ---
PROCEDURE: CT chest without contrast. TECHNIQUE: Multiple contiguous axial images were obtained through the chest without the use of intravenous contrast. Auto Exposure Controls were utilized during the CT exam to meet ALARA standards for radiation dose reduction. INDICATION: Foreign body on chest x-ray. COMPARISON: Radiograph from the same date. FINDINGS: Postsurgical changes of a CABG. Precarinal lymph node is mildly enlarged measuring 1.3 cm in AP dimension. No additional adenopathy, though evaluation for adenopathy is limited secondary to lack of intravenous contrast. Scattered vascular calcifications within the thoracic aorta and its branch vessels. No aneurysmal dilatation of the thoracic aorta. Prosthetic cardiac valves are present. No pericardial effusion. No pleural effusion. 1.2 cm metallic density appearing to correspond to a possible screw is present. This corresponds to the abnormality noted on recent radiography. This appears to be posterior and inferior to the inferior right pulmonary vein. Slight extension in the pulmonary vein not excluded based upon imaging. The left lung is clear. Extensive tree-in-bud nodularity is noted within the right upper lobe with additional linear interstitial opacities within the right upper lobe adjacent to the minor fissure. The right lung is otherwise clear. No pneumothorax. Significant mass-like mural thickening of the proximal stomach is noted. 2.7 cm indeterminate left renal hypodensity. Probable large duodenal diverticulum is partially visualized. Stimulator device is present with the battery pack within the posterior left torso with leads extending into the central spinal canal within the mid thoracic spine. Advanced scattered osseous degenerative changes, particularly within the lower thoracic and upper lumbar spine. No acute osseous abnormality. IMPRESSION: 1.2 cm metallic density with the morphology consistent with a screw is identified immediately adjacent and abutting the right inferior pulmonary vein. This is of uncertain etiology, origin, or significance. Recommend clinical correlation. Extensive tree-in-bud nodularity within the right upper lobe which is typically seen with an underlying infectious or inflammatory process. This is associated with a mildly prominent precarinal lymph node which is favored to be reactive in nature. Mass-like mural thickening of the proximal stomach. This may simply relate to gastritis, though neoplasm would be an additional consideration. Nonemergent upper GI examination versus endoscopy is recommended for further evaluation. Indeterminate left renal hypodensity. Statistically this likely relates to a cyst, though is technically indeterminate on this examination. Renal ultrasound could help to further evaluate. Additional findings as above. Dictated by: Dictated on workstation # [id number]
--- NOTE | 2019-07-02 19:02 | NUR ---
Recieved report from BORIS Pat to assume care of pt @ this time.
--- NOTE | 2019-07-02 19:40 | NUR ---
Pt requesting to take scheduled personal home medication (5mg Oxycodone). Nicolas Renteria APRN notified and verbalized it is acceptable to take medication. Pt notified.
[2019-07-02] MEDS ORDERED: DOXY100T2 PO (19:48)
[2019-07-02] MEDS ORDERED: DOXYCYCLINE 100 MG (VIBRAMYCIN) TABLET PO SCH (20:15)
[2019-07-02 20:23] VITALS: BP 158/93
== END 2019-07-02 20:24 | disposition home or self-care (01) ==
LOC: EDUNIT# 15:41 → ER 15:42
DX: T17.808A Unspecified foreign body in other parts of respiratory tract causing other injury, initial encounter (principal); K31.89 Other diseases of stomach and duodenum; J18.9 Pneumonia, unspecified organism; I10 Essential (primary) hypertension; E78.00 Pure hypercholesterolemia, unspecified; F41.9 Anxiety disorder, unspecified; F32.9 Major depressive disorder, single episode, unspecified; Z86.73 Personal history of transient ischemic attack (TIA), and cerebral infarction without residual deficits; Z88.0 Allergy status to penicillin; Z79.82 Long term (current) use of aspirin; Z79.01 Long term (current) use of anticoagulants; Z87.891 Personal history of nicotine dependence; Z90.710 Acquired absence of both cervix and uterus
CPT/HCPCS: 71046; 71250

== ENCOUNTER 2019-12-23 23:33 | Emergency (ER) | payer MEDICARE ==
[~2019-12-23] VITALS: Ht 165 cm; Wt 68.0 kg
--- NOTE | 2019-12-24 00:18 | ED Fall/Injury ---
General Chief Complaint: Trauma-Non Activation Stated Complaint: FALL Nursing Triage Note: fell off of porch at home. c/o right sided shoulder and right knee pain. Source: patient, EMS Exam Limitations: no limitations History of Present Illness Date Seen by Provider: Dec 23, 2019 Time Seen by Provider: 23:40 Initial Comments Here by EMS with report of fall at home. She had gone out to investigate her car or in that was going off. She did not turn on the light because she did not want to be seen. After she stepped out on the porch she became disoriented and felt d chris and fell down 2 steps onto the concrete on her right side. Did not hit her head. Denies head or neck pain and denies loss of consciousness. Complains of right shoulder pain and states that she hit her right anterior upper chest wall on something. She is able to walk without assistance. Summoned EMS due to the pain in her shoulder. Denies pelvic pain or instability. She is on Eliquis. Occurred: just prior to arrival (approximately 30 minutes ago) Severity: mild, moderate Injuries/Pain Location: upper extremity (right shoulder) Context: lost balance Loss of Consciousness: no loss of consciousness Modifying Factors: Improves With Immobilization; Worse With Movement Associated Symptoms (Fall): No Abdominal Pain; Chest Pain; No Confusion, No Headache, No Lightheadedness, No Muscle Spasms, No Nausea/Vomiting, No Neck Pain, No Shortness of Air, No Trouble Walking, No Vision Changes Allergies and Home Medications Allergies Coded Allergies: Penicillins (Unverified Allergy, Unknown, 06/20/15) Home Medications Apixaban 5 Mg Tablet, 5 MG PO BID Prescribed by: MONTY FRANKLIN on 06/22/15 1429 Aspirin 81 Mg Tab.chew, 81 MG PO DAILY, (Reported) B Complex with Vitamin C 1 Each Tablet.er, 1 TAB PO DAILY, (Reported) Bupropion HCl 300 Mg Tab.er.24h, 300 MG PO DAILY, (Reported) Calcium Carb & Citrate/Vit D3 1 Each Tablet.er, 2 TAB PO DAILY, (Reported) Docusate Sodium 100 Mg Capsule, 300 MG PO DAILY, (Reported) Doxycycline Hyclate 100 Mg Tablet, 100 MG PO BID Prescribed by: DUNIA SIERRA on 07/02/191947 Escitalopram Oxalate 20 Mg Tablet, 20 MG PO HS, (Reported) Furosemide 20 Mg Tablet, 20 MG PO DAILY Prescribed by: MONTY FRANKLIN on 06/22/15 1429 Gabapentin 100 Mg Capsule, 100 MG PO TID, (Reported) Lisinopril/Hydrochlorothiazide 1 Each Tablet, 1 TAB PO DAILY, (Reported) Lorazepam 0.5 Mg Tablet, 0.5 MG PO Q8H PRN for PRN, (Reported) Melatonin 5 Mg Tablet, 5 MG PO HS, (Reported) Meloxicam 15 Mg Tablet, 15 MG PO DAILY, (Reported) Metoprolol Tartrate 100 Mg Tablet, 100 MG PO BID Prescribed by: MONTY FRANKLIN on 06/22/15 1435 Multivitamin 1 Each Tablet, 1 TAB PO DAILY, (Reported) Oxycodone HCl/Acetaminophen 1 Each Tablet, 1 TAB PO Q4H PRN for PRN, (Reported) Potassium Chloride 10 Meq Capsule.er, 10 MEQ PO BID, (Reported) Rosuvastatin Calcium 10 Mg Tablet, 10 MG PO HS, (Reported) Patient Home Medication List Home Medication List Reviewed: Yes Review of Systems Review of Systems Constitutional: see HPI; No chills, No fever Eyes: No Symptoms Reported Ears, Nose, Mouth, Throat: no symptoms reported Respiratory: no symptoms reported Cardiovascular: see HPI; No edema, No palpitations Gastrointestinal: No abdominal pain, No nausea, No vomiting Genitourinary: no symptoms reported Musculoskeletal: see HPI, joint pain, muscle pain Skin: No change in color, No lesions Psychiatric/Neurological: See HPI All Other Systems Reviewed Negative Unless Noted: Yes Past Nxhdghv-Unkytu-Rihobw Hx Past Med/Social Hx: Reviewed Nursing Past Med/Soc Hx Patient Social History Alcohol Use: Denies Use Recreational Drug Use: No Type Used: Cigarettes 2nd Hand Smoke Exposure: No Recent Foreign Travel: No Contact w/Someone Who Travel: No Recent Infectious Disease Expo: No Recent Hopitalizations: No Immunizations Up To Date Tetanus Booster (TDap): Less than 5yrs PED Vaccines UTD: No Date of Pneumonia Vaccine: Sep 01, 2012 Date of Influenza Vaccine: Jun 13, 2015 Seasonal Allergies Seasonal Allergies: No Past Medical History Surgeries: Yes (implanted nerve stimulator, MITRAL AND TRICUSPID VALVE REPAIRS) Cardiac, Hysterectomy, Tonsillectomy Respiratory: No Currently Using CPAP: No Currently Using BIPAP: No Cardiac: Yes High Cholesterol, Hypertension, Valvular Heart Disease Neurological: Yes (spinal stenosis) Stroke Reproductive Disorders: No Female 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 Sexually Transmitted Disease: No HIV/AIDS: No Genitourinary: No Gastrointestinal: No Musculoskeletal: Yes (SPINAL STENOSIS- STIMULATOR IN BACK) Endocrine: No Loss of Vision: Denies Hearing Impairment: Hard of Hearing Cancer: No Psychosocial: Yes Anxiety, Depression Integumentary: No Blood Disorders: No Adverse Reaction/Blood Tranf: No Family Medical History Reviewed Nursing Family Hx No Pertinent Family Hx, Stroke Physical Exam Vital Signs Vital Signs - First Documented 12/23/19 23:37 Temp 36.6 Pulse 88 Resp 18 B/P (MAP) 172/95 (120) Pulse Ox 94 Capillary Refill : Less Than 3 Seconds Height, Weight, BMI Height: 5'7.00" Weight: 162lbs. 7.0oz. 73.256114vx; 24.00 BMI Method:Stated General Appearance: WD/WN, no apparent distress HEENT: PERRL/EOMI, TMs normal, pharynx normal Neck: non-tender, full range of motion, supple, normal inspection Cardiovascular: no murmur, irregularly irregular Respiratory: lungs clear, normal breath sounds Gastrointestinal: non tender, soft Back: normal inspection, no CVA tenderness, no vertebral tenderness Extremities: no pedal edema, pelvis stable, other (tender to the right shoulder at area proximal humerus. Right clavicle without obvious deformity. No left- sided shoulder pain. Tender to palpation anterior upper chest wall. No deformity noted.) Neurologic/Psychiatric: alert, normal mood/affect, oriented x 3 Heather Coma Score Best Eye Response: (4) Open Spontaneously Best Verbal Response: (5) Oriented Best Motor Response: (6) Obeys Commands Progress/Results/Core Measures Results/Orders Lab Results Laboratory Tests Test 12/24/19 00:30 Range/Units Urine Color YELLOW Urine Clarity CLEAR Urine pH 7.0 5-9 Urine Specific [place] <=1.005 1.016-1.022 Urine Protein NEGATIVE NEGATIVE Urine Glucose (UA) NEGATIVE NEGATIVE Urine Ketones NEGATIVE NEGATIVE Urine Nitrite NEGATIVE NEGATIVE Urine Bilirubin NEGATIVE NEGATIVE Urine Urobilinogen 0.2 < = 1.0 MG/DL Urine Leukocyte Esterase NEGATIVE NEGATIVE Urine RBC (Auto) NEGATIVE NEGATIVE Urine RBC RARE /HPF Urine WBC NONE /HPF Urine Squamous Epithelial Cells RARE /HPF Urine Crystals NONE /LPF Urine Bacteria TRACE /HPF Urine Casts NONE /LPF Urine Mucus NEGATIVE /LPF Urine Culture Indicated NO My Orders Orders - ANALI BANDA MD Ct Head Wo (12/23/19 23:45) Chest Pa/Lat (2 View) (12/24/19 00:01) Shoulder, Right, 3 Views (12/24/19 00:01) Ua Culture If Indicated (12/24/19 00:23) Vital Signs/I&O 12/23/19 23:37 Temp 36.6 Pulse 88 Resp 18 B/P (MAP) 172/95 (120) Pulse Ox 94 Blood Pressure Mean: 120 Progress Progress Note : Progress Note Seen and evaluated. CT head due to Eliquis history. X-ray right shoulder and two-view chest. Patient was allowed to take her home pain medicine. 0022: No acute findings and x-rays or CT. We will check UA due to the dizziness as patient states that she just got over a urinary tract infection. Monitor pat ient. 0100: UA complete and negative. No acute findings overall. Discharged home with return precautions. Patient verbalize understanding instructions and agreement with plan. Diagnostic Imaging Diagonstic Imaging: CT Plain Films/CT/US/NM/MRI: head Comments No acute findings Reviewed: [facility] by [facility] Diagonstic Imaging: Xray Plain Films/CT/US/NM/MRI: chest Comments No acute findings Reviewed: Reviewed by Me Diagonstic Imaging: Xray Plain Films/CT/US/NM/MRI: other Comments Right shoulder 3 view no acute findings Reviewed: Reviewed by Me Departure Impression Primary Impression: Contusion of right shoulder Qualified Codes: S40.011A - Contusion of right shoulder, initial encounter Additional Impression: Contusion of right chest wall Qualified Codes: S20.211A - Contusion of right front wall of thorax, initial encounter Disposition: HOME, SELF-CARE Condition: Improved Departure-Patient Inst. Decision time for Depature: 01:01 Referrals: SELFCAPRI MD (PCP/Family) Primary Care Physician Patient Instructions: Contusion (DC), Bruised Rib (DC), Shoulder Pain (DC) Add. Discharge Instructions: All discharge instructions reviewed with patient and/or family. Voiced understanding. Continue home medications as previously prescribed. Follow-up with your DrSavanna in a few days for recheck. Return for worse pain, swelling, weakness, breathing problems or other concerns as needed. You may use ice packs over area of concern 20 minutes per hour over the next few days as needed to reduce pain and swelling. ANALI BANDA MD Dec 24, 2019 00:18
[2019-12-24 00:35] LABS: BILIRUBIN,URINE NEGATIVE (NEGATIVE); CLARITY,URINE CLEAR; COLOR,URINE YELLOW; GLUCOSE, URINE (UA) NEGATIVE (NEGATIVE); KETONES,URINE NEGATIVE (NEGATIVE); LEUKOCYTE ESTERASE ,URINE NEGATIVE (NEGATIVE); NITRITE,URINE NEGATIVE (NEGATIVE); PROTEIN,URINE NEGATIVE (NEGATIVE)
[2019-12-24 00:52] LABS: RBC,URINE RARE /HPF
[2019-12-24 00:53] LABS: BACTERIA,URINE TRACE /HPF; SQUAMOUS EPITHELIAL CELL,UR RARE /HPF
[2019-12-24 01:11] VITALS: BP 142/89
--- NOTE | 2019-12-24 06:15 | Diagnostic Imaging Report ---
PROCEDURE: CT head without contrast. TECHNIQUE: Multiple contiguous axial images were obtained through the brain without the use of intravenous contrast. Auto Exposure Controls were utilized during the CT exam to meet ALARA standards for radiation dose reduction. INDICATION: Fall. FINDINGS: There is prominence of the ventricles and sulci. There is no hydrocephalus or cerebral edema. There is no midline shift or mass-effect. There is no intracranial mass, hemorrhage, or extra-axial fluid collection. There is some diffuse decreased attenuation of the periventricular white matter which is nonspecific. The visualized paranasal sinuses and mastoid air cells are clear. There are no regional areas of decreased attenuation appreciated to suggest an acute CVA. IMPRESSION: 1. No acute intracranial process. 2. Age-appropriate atrophy. 3. Decreased attenuation of the periventricular white matter which is nonspecific, however, likely reflects senescent change and/or chronic small vessel ischemic disease. Dictated by: Dictated on workstation # [id number]
--- NOTE | 2019-12-24 06:36 | Diagnostic Imaging Report ---
INDICATION: Pain. 3 views were obtained. FINDINGS: There is arthrosis of the acromioclavicular joint. There is no fracture or dislocation. Soft tissues are unremarkable. IMPRESSION: Degenerative changes, otherwise unremarkable. Dictated by: Dictated on workstation # [id number]
--- NOTE | 2019-12-24 06:45 | Diagnostic Imaging Report ---
INDICATION: Fall. FINDINGS: There is cardiomegaly. There is some venous congestion. There is no pleural effusion or pneumothorax. There has been a previous median sternotomy. There is no pneumothorax. Mediastinum is unremarkable. IMPRESSION: Cardiomegaly and mild central pulmonary venous congestion. Dictated by: Dictated on workstation # [id number]
== END 2019-12-24 01:11 | disposition home or self-care (01) ==
LOC: EDUNIT# 23:33 → ER 23:35
DX: S40.011A Contusion of right shoulder, initial encounter (principal); S20.211A Contusion of right front wall of thorax, initial encounter; I10 Essential (primary) hypertension; E78.00 Pure hypercholesterolemia, unspecified; F41.9 Anxiety disorder, unspecified; F32.9 Major depressive disorder, single episode, unspecified; R40.2142 Coma scale, eyes open, spontaneous, at arrival to emergency department; R40.2252 Coma scale, best verbal response, oriented, at arrival to emergency department; R40.2362 Coma scale, best motor response, obeys commands, at arrival to emergency department; Z86.73 Personal history of transient ischemic attack (TIA), and cerebral infarction without residual deficits; Z79.01 Long term (current) use of anticoagulants; Z88.0 Allergy status to penicillin; Z79.82 Long term (current) use of aspirin; W10.9XXA Fall (on) (from) unspecified stairs and steps, initial encounter; Y92.009 Unspecified place in unspecified non-institutional (private) residence as the place of occurrence of the external cause
CPT/HCPCS: 70450; 71046; 73030; 81000

== ENCOUNTER → 2019-12-23 | Outpatient (CLI) | payer MEDICARE ==
[~2019-12-23] MED LIST changes: -BUPR300T51 PO; +BUPR300T98 PO; +DOXY100T2 PO
[2019-12-23 16:24] LABS: ALBUMIN 4.6 GM/DL (3.2-4.5)
[2019-12-23 16:25] LABS: POTASSIUM 4.4 MMOL/L (3.6-5.0)
[2019-12-23 16:26] LABS: CALCIUM 10.3 MG/DL (8.5-10.1)
[2019-12-23 16:30] LABS: PHOSPHORUS 3.6 MG/DL (2.3-4.7)
[2019-12-23 16:31] LABS: CREATININE SERUM 1.31 MG/DL (0.60-1.30)
[2019-12-23 16:33] LABS: MAGNESIUM 2.2 MG/DL (1.6-2.4)
== END ==
LOC: LAB 15:49
PROVIDERS: ATTEND Internal Medicine Critical Care Medicine
DX: I10 Essential (primary) hypertension (principal)
CPT/HCPCS: 36415; 80069; 83735

== ENCOUNTER → 2020-01-25 | Outpatient (CLI) | payer MEDICARE ==
[2020-01-25 16:48] LABS: ALBUMIN 4.5 GM/DL (3.2-4.5); CALCIUM 10.4 MG/DL (8.5-10.1); CREATININE SERUM 1.18 MG/DL (0.60-1.30); PHOSPHORUS 3.5 MG/DL (2.3-4.7); POTASSIUM 5.1 MMOL/L (3.6-5.0)
== END ==
LOC: LAB 15:59
PROVIDERS: ATTEND Internal Medicine Critical Care Medicine
DX: I10 Essential (primary) hypertension (principal)
CPT/HCPCS: 36415; 80069

== ENCOUNTER → 2020-02-08 | Outpatient (CLI) | payer MEDICARE ==
[2020-02-08 15:39] LABS: ALBUMIN 4.4 GM/DL (3.2-4.5); CALCIUM 10.3 MG/DL (8.5-10.1); CREATININE SERUM 1.11 MG/DL (0.60-1.30); PHOSPHORUS 3.3 MG/DL (2.3-4.7); POTASSIUM 4.9 MMOL/L (3.6-5.0)
== END ==
LOC: LAB 15:00
PROVIDERS: ATTEND Internal Medicine Critical Care Medicine
DX: I10 Essential (primary) hypertension (principal)
CPT/HCPCS: 36415; 80069

== ENCOUNTER 2020-03-02 10:33 | Outpatient (RCR) | payer MEDICARE ==
[2020-03-13] MEDS ORDERED: DILT240C53 PO (13:49)
[2020-03-13] MEDS ORDERED: CARV6.25 PO (13:49)
[2020-03-13] MEDS ORDERED: ISOS30TA3 PO (13:49)
[2020-03-13] MEDS ORDERED: APIX5TAB PO (13:49)
[2020-03-13] MEDS ORDERED: LORA-405 PO (13:49)
[2020-03-13] MEDS ORDERED: MELO15TA39 PO (13:49)
[2020-03-13] MEDS ORDERED: MULT-1136 PO (13:49)
[2020-03-13] MEDS ORDERED: FURO-124 PO (13:49)
[2020-03-13] MEDS ORDERED: OXYC-465 PO (13:49)
[2020-03-13] MEDS ORDERED: DIGO125T3 PO (13:49)
[2020-03-13] MEDS ORDERED: LOSA50TA63 PO (13:49)
[2020-03-13] MEDS ORDERED: SPIR25TA PO (13:49)
[2020-03-13] MEDS ORDERED: DICL100G18 TP (13:49)
[2020-03-13] MEDS ORDERED: HYOS-19 SL (13:50)
[2020-03-13] MEDS ORDERED: ONDN4T PO (13:50)
== END 2020-04-24 15:58 | disposition home or self-care (01) ==
PROVIDERS: ATTEND Family Medicine
DX: M25.511 Pain in right shoulder (principal); I48.91 Unspecified atrial fibrillation; M48.00 Spinal stenosis, site unspecified; W19.XXXA Unspecified fall, initial encounter

== ENCOUNTER 2020-03-11 23:08 | Inpatient (IN) | payer MEDICARE ==
[~2020-03-11] VITALS: Ht 162 cm; Wt 67.3 kg
--- OUTSIDE RECORDS SUMMARY | 2020-03-11 23:15 | XMS REPORT ---
Author Author Smile skin lifter bacon Gigi Hill [facility] Hello Music. [facility] Secure [employer] Address [address] [address] Care Team Providers Care Night Time Babysitter Name Role Phone SELF, CAPRI Unavailable NO, LOCAL PHYSICIAN Unavailable Unavailable SELF, CAPRI Unavailable FITO MANSFIELD, ELLY Rai Unavailable Unavailable Janes CLEMENTS MD Unavailable Unavailable Janes CLEMENTS MD Unavailable Unavailable JULIETA MANSFIELD, ARMANI Arroyo Unavailable Unavailable NEAL WEISS Unavailable Unavailable BIANCA ASHTON MD Unavailable Unavailable Unavailable Unavailable SELF, CAPRI Unavailable Janes CLEMENTS MD Unavailable Unavailable Janes CLEMENST MD Unavailable Unavailable ELLY PAYTON MD Unavailable Unavailable SELF, CAPRI PCP NEAL WEISS Unavailable Unavailable DUNIA SIERRA WEDDING DAY COORDINATOR Unavailable Unavailable SOLO MANSFIELD, ANALI Parkinson Unavailable Unavailable KEM OLIVEIRA MD Unavailable Unavailable Unavailable Unavailable SELF CAPRI MANSFIELD Unavailable Unavailable Unavailable Unavailable Unavailable Unavailable Unavailable Unavailable Unavailable Unavailable Unavailable Unavailable Unavailable Unavailable Allergies The data below is from unstructured sources Allergen Type Severity Reaction Last Updated Verified Status Penicillins ([id number]) Allergy Unknown June 20, 2015 No Active Encounters Encounter Date Encounter Type Encounter Diagnosis Care Provider Facility Start: [facility] Start: Patient encounter CAPRI FRAGOSO MD [facility] Via [facility] 03-02-2020 [facility] Start: Patient encounter CAPRI FRAGOSO MD [facility] Via [facility] 02-11-2020 [facility] Start: Patient encounter CAPRI FRAGOSO MD, [facility] Via [facility] 02-08-2020 [facility] Start: [facility] Start: Patient encounter NA [facility] 01-31-2020 [facility] Start: Patient encounter ELLY Rai [facility] is 01-25-2020 procedure FITO MANSFIELD [facility] Start: Emergency department KEM OLIVEIRA MD [facility] 12-23-2019 patient visit [facility] End: 12-23-2019 Start: Patient encounter ANALI BANDA MD [facility] 12-23-2019 procedure [facility] Start: Patient encounter ELLY Rai [facility] is 12-23-2019 procedure FITO MANSFIELD [facility] Start: Patient encounter NA NA [facility] 07-06-2019 procedure [facility] ([id number]) Start: Emergency department CAPRI SELF [facility] 07-02-2019 patient visit Work Phone: [place] [phone] Start: Emergency department ANALI BANDA MD [facility] 07-02-2019 patient visit [facility] ([id number]) End: 07-02-2019 Start: Patient encounter CAPRI SELF [place] V [facility] 07-01-2019 procedure Work Phone: [place] [phone] Start: Patient encounter ELLY [facility] is 07-01-2019 procedure FITO MANSFIELD [facility] ([id number]) Start: [facility] CAPRI SELF [facility] 03-01-2019 MAIN MAIN Start: Patient encounter NA [facility] 03-01-2019 [facility] ([id number]) Start: Patient encounter NA NA [facility] 02-26-2019 procedure [facility] ([id number]) Start: Patient encounter NA NA [facility] 02-24-2019 procedure [facility] ([id number]) Start: Telephone encounter Essential (primary) CAPRI LINDSAY F [facility] 02-11-2019 hypertension MAIN Start: Telephone encounter CAPRI SELF [facility] MELVINA [facility] 02-01-2019 MAIN Start: Patient encounter CHRISTOPHER [facility] is 01-27-2019 procedure FITO MANSFIELD [facility] ([id number]) Start: Telephone encounter Essential (primary) CAPRI LINDSAY F [facility] 12-30-2018 hypertension MAIN Start: Telephone encounter CAPRI SELF [facility] FO RT JAZ 12-29-2018 MAIN Start: Telephone encounter Essential (primary) CAPRI LINDSAY F [facility] 11-12-2018 hypertension MAIN Start: Telephone encounter CAPRI SELF [facility] 11-10-2018 MAIN Start: Telephone encounter CAPRI SELF [facility] 11-09-2018 MAIN Start: Follow-up encounter Essential (primary) CAPRI LINDSAY F [facility] 10-13-2018 hypertension MAIN Start: Patient encounter NA NA Community [facility] 10-13-2018 procedure [facility] ([id number]) Start: [facility] Doctor Migration [facility] 09-18-2018 Start: [facility] Doctor Migration [facility] 09-17-2018 Start: Patient encounter CHRISTOPHER Not Availab le ([id number]) 09-03-2018 procedure FITO MANSFIELD Start: Patient encounter CHRISTOPHER [facility] is 09-03-2018 procedure FITO MANSFIELD [facility] ([id number]) Start: Telephone encounter Doctor Migration [facility] 08-30-2018 Start: Telephone encounter Doctor Migration [facility] 08-29-2018 Start: Patient encounter NA NA [facility] 05-21-2017 procedure [facility] Start: Patient encounter NEAL ISELA Not Availab le ([id number]) 03-06-2017 procedure Start: Emergency department NEAL ISELA [facility] [place] 03-06-2017 patient visit [facility] ([id number]) End: 03-06-2017 Start: Patient encounter CHRISTOPHER [facility] isti 02-04-2017 procedure FITO MANSFIELD [facility] ([id number]) Start: Patient encounter CHRISTOPHER Not Availab le ([id number]) 10-08-2016 procedure FITO MANSFIELD Start: Patient encounter CHRISTOPHER [facility] isti 10-08-2016 procedure FITO MANSFIELD [facility] ([id number]) Start: Patient encounter CHRISTOPHER [facility] isti 04-12-2016 procedure FITO MANSFIELD [facility] [place] ([id number]) Start: Patient encounter CHRISTOPHER Not Availab le ([id number]) 04-08-2016 procedure FITO MANSFIELD End: 04-11-2016 Start: Patient encounter CHRISTOPHER [facility] is 04-08-2016 procedure FITO MANSFIELD [facility] [place] ([id number]) End: 04-10-2016 Start: Patient encounter CHRISTOPHER Not Availab le ([id number]) 02-09-2016 procedure FITO MANSFIELD Start: Patient encounter CHRISTOPHER [facility] is 02-09-2016 procedure FITO MANSFIELD [facility] ([id number]) Start: Patient encounter CHRISTOPHER Not Availab le ([id number]) 01-15-2016 procedure FITO MANSFIELD Start: Patient encounter CHRISTOPHER [facility] is 01-15-2016 procedure FITO MANSFIELD [facility] [place] ([id number]) Start: Patient encounter CHRISTOPHER Not Availab le ([id number]) 01-03-2016 procedure FITO MANSFIELD End: 01-11-2016 Start: Patient encounter CHRISTOPHER [facility] is 01-03-2016 procedure FITO MANSFIELD [facility] ([id number]) End: 01-10-2016 Start: Evaluation and ROXANNA CLEMENTS MD Not Available ([id number]) 06-20-2015 management of inpatient End: 06-22-2015 Start: Evaluation and ROXANNA CLEMENTS MD [facility] 06-20-2015 management of [facility] inpatient ([id number]) End: 06-22-2015 Start: [facility] Doctor Migration [facility] 05-23-2015 Start: Patient encounter NA NA [facility] 05-25-2014 procedure [facility] Start: Patient encounter BIANCA ASHTON MD Not Availa ble ([id number]) 01-09-2012 procedure End: 01-09-2012 Medical Equipment The data below is from unstructured sourcesNo Medical Equipment Information available Goals Date Patient Goal Desired Activity/St ate Immunizations Immunizatio Immunization Notes Care Provider Facility n Date 08-12-2019 influenza, high dose NA NA [facility] seasonal, [facility] - preservative-free [facility] ([id number]) 07-02-2019 CAPRI SELF [place] Via [employer] Work Phone: Hospital ([id number]) 02-26-2019 pneumococcal NA [facility]alt [facility] polysaccharide [facility] - vaccine, 23 valent [facility] ([id number]) 08-13-2017 pneumococcal conjugate NA ROXANNA [facility]y Health vaccine, 13 valent [facility] ([id number]) 03-12-2011 tetanus toxoid, NA [facility] Hea lth reduced diphtheria Center [facility] - toxoid, and acellular [facility] pertussis vaccine, (36323) adsorbed Interventions No Information Medications Medication Drug Dates Sig Sig (Original) Class(es) (Normalized) B Complex With Vitamin C B Complex With Vitamin C Active 1 ORAL (1 source) Daily Calcium Carb & Calcium Carb & Citrate/Vit D3 Active 2 Citrate/Vit D3 ORAL Daily (1 source) doxycycline hyclate 100 Tetracycli Start: Doxycy sky Hyclate Discontinued 100 mg oral tablet ne-class 07-02-2019 ORAL Twice A Da y 14 July 02, 2019 (1 source) Drug 7:48pm (One-Time) End: 07-02-2019 Multivitamin preparation Multivitamin Active 1 OR AL Daily (1 source) Payers Date Payer Normalized Payer [id number] Plan of Treatment Date Care Activity Detail Author Patient Education Pneumonia in Adults [place] [facility] ([id number]) Patient referral [place] Via [facility] ([id number]) Problems Active Problems Problem Problem Date Last Documented Episodic/[facility] Provider Classificati Recorded Date onic on Allergic Allergy status to penicillin 02-07-2020 Episodic PETER SIERRA reactions (4 sources) Anxiety Anxiety disorder, unspecified 02-07-2020 Chronic ROXANNA CLEMENTS MD disorders (17 sources) Chronic Chronic kidney disease stage 3 ; Chronic CAPRI SELF kidney Translations: [Chronic kidney Other Phone: disease disease, stage 3 (moderate)] [phone] (3 sources) 0 Coma; Coma scale, eyes open, spontaneous, 02-07-2020 Epi sodic ANALI stupor; and at arrival to emergency department PAIUTE-SHOSHONE MD brain damage ; Translations: [COMA SCALE , BEST (9 sources) VERBAL RESPONSE, ORIENT] Congestive Acute systolic (congestive) heart Chronic ROXANNA CLEMENTS MD heart failure failure; nonhypertens richy (5 sources) Disorders of Pure hypercholesterolemia ; 02-07-2020 Chronic ROXANNA CLEMENTS MD lipid Translations: [Pure metabolism hypercholesterolemia, unspe cified] (20 sources) E Codes: Fall on same level from slipping, 02-07-2020 Episo dic NEAL ISELA Fall tripping and stumbling with (12 sources) subsequent striking against unspecified object, initial encounter ; Translations: [Fall (on) (from) unspecified stairs and steps, initial encounter] E Codes: Unspecified place in unspecified 02-07-2020 [address]isod [address] ANALI Place of non-institutional (private) TISH Zaman MD occurrence residence as the place of (3 sources) occurrence of the external cause Essential Essential (primary) hypertension ; 01-14-2020 Facility Environmental Technician [place] ROXANNA CLEMENTS MD hypertension Translations: [Essential (21 sources) hypertension] Genitourinar Female stress incontinence ; Chronic CAPRI SELF y symptoms Translations: [Urinary, Other Phone : and incontinence, stress female] [phone] ill-defined 0 conditions (1 source) Heart valve Nonrheumatic mitral (valve) Chronic ROXANNA CLEMENTS MD disorders insufficiency ; Translation s: (19 sources) [Presence of prosthetic hea rt valve] Hypertension Chronic kidney disease stage 3 due Chronic CAPRI SELF with to benign hypertension ; Other Phon e: complication Translations: [Hypertensive chronic [phone] s and kidney disease with stage 1 through 0 secondary stage 4 chronic kidney dise ase, or hypertension unspecified chronic kidney disease] (1 source) Mood Major depressive disorder, single 02-07-2020 Chron ic ROXANNA CLEMENTS MD disorders episode, unspecified (17 sources) Osteoarthrit Osteoarthritis ; Translations: Chronic CAPRI SELF is [Osteoarthritis] Other Phone: (1 source) Other penitentiary (current) use of 02-07-2020 Episodic NEAL ISELA aftercare anticoagulants (12 sources) 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 02-07-2020 Epis odic NEAL ISELA aftercare (12 sources) Other Encounter for surgical aftercare Episodic CHRISTOPHER aftercare following surgery on the [facility] (11 sources) circulatory system Other and Cerebrovascular disease ; Chronic MA XWELL SELF ill-defined Translations: [Cerebral Other Phone : cerebrovascu microvascular disease] [phone] lar disease 0 (1 source) Other Personal history of transient 02-07-2020 Episodic ROXANNA CLEMENTS MD circulatory ischemic attack (TIA), and cerebral disease infarction without residual (17 sources) deficits Other lower Cough Episodic CHRISTOPHER respiratory LONGNECKER disease (3 sources) Other Pain in right shoulder 02-07-2020 Episodic ARANZA OTHY non-traumati PAIUTE-SHOSHONE c joint disorders (4 sources) Rosemary-; Cardiomyopathy, unspecified Chronic ROXANNA CLEMENTS MD endo-; and myocarditis; cardiomyopat hy (except that caused by tuberculosis or sexually transmitted disease) (13 sources) Pleurisy; Atelectasis Episodic CHRISTOPHER pneumothorax LONGNECKER ; pulmonary MD collapse (2 sources) Rehabilitati Pessary care ; Translations: Chronic CAPRI SELF on care; [Pessary maintenance] Other Phone: fitting of [phone] prostheses; 0 and adjustment of devices (1 source) Residual Other specified postprocedural Episodic CHRISTOPHER codes; states LONGNECKER unclassified MD (2 sources) Screening Personal history of nicotine Episodic ROXANNA CLEMENTS MD and history dependence of mental health and substance abuse codes (14 sources) Spondylosis; Spinal stenosis, site unspecified ; 03-02-2020 Meena VALENZUELA SAYED intervertebr Translations: [Thoracic or MD al disc lumbosacral neuritis or disorders; radiculitis, unspecified] other back problems (16 sources) Past or Other Problems Problem Problem Date Last Documented Episodic/Chr Provider Classificati Recorded Date onic on Diabetes Hyperglycemia, unspecified ; Episodic CAPRI SELF mellitus Translations: [ - Hyperglycemia Oth er Phone: without R73.9] [phone] complication 0 (1 source) Genitourinar Delay when starting to pass urine ; Episodic CAPRI SELF y symptoms Translations: [Hesitancy of Other P hola: and micturition] [phone] ill-defined 0 conditions (2 sources) Headache; Headache ; Translations: [Left Episodic CAPRI SELF including temporal headache] Other Phone: migraine [phone] (1 source) 0 Immunization Raised antinuclear antibody ; Episodic CAPRI SELF s and Translations: [Positive NEELA Other P hola: screening (antinuclear antibody)] [phone] for 0 infectious disease (1 source) Other Care involving other physical Episodic BIANCA SAYED aftercare therapy MD (1 source) Other Other diseases of stomach and Episodic PETER SIERRA disorders of duodenum stomach and duodenum (1 source) Other Unspecified foreign body in other Episodic PETER SIERRA injuries and parts of respiratory tract causing conditions other injury, initial encou nter due to external causes (1 source) Other Skin sensation disturbance ; Episodic [employer] nervous Translations: Other Phone: system [Paresthesias/numbness] [phone] disorders 0 (1 source) Pneumonia Pneumonia ; Translations: Episodic PE TER SIERRA (except that [Pneumonia, unspecified org anism] caused by tuberculosis or sexually transmitted disease) (2 sources) Residual Other specified postprocedural Episodic CHRISTOPHER codes; states LONGNECKER unclassified MD (4 sources) 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 PETER SIERRA codes; uterus unclassified (1 source) Procedures Date Procedure Procedure Detail Performing Cl inician Start: CT of chest [employer] 07-02-2019 without contrast Work Phone: Start: Diagnostic [employer] 07-02-2019 radiography of Work Phone: chest, combined PA and lateral Start: Diagnostic [employer] 07-01-2019 radiography of Work Phone: chest, combined PA and lateral Results Test Name Value Interpreta Reference Facilit Date tion Range y Time laboratory on 2020-02-08 Albumin [Mass/Vol] 4.4 g/dL Negative 3.2-4.5 PENDING 06-0 9-2 g/dL [facility] N [facility] 11:19-0 ([id number]) 400 Anion gap 6 mmol/L Negative 5-14 PENDING 02-07-2 [Moles/Vol] mmol/L [facility] N [facility] 11:19-0 (78344) 400 Calcium [Mass/Vol] 10.3 mg/dL High 8.5-10.1 PENDING 06- 09-2 mg/dL [facility] 0[facility] N [facility] 11:19-0 (22637) 400 Chloride [Moles/Vol] 100 mmol/L Negative 98-107 PENDING 0 6-09-2 mmol/L [facility] 0[facility] N [facility] 11:19-0 (30552) 400 CO2 [Moles/Vol] 28 mmol/L Negative 21-32 PENDING 06-2 mmol/L [facility] 0[facility] N [facility] 11:19-0 (70657) 400 Creatinine 1.11 mg/dL Negative 0.60-1.30 PENDING 02-07-2 [Mass/Vol] mg/dL [facility] N [facility] 11:19-0 ([id number]) 400 Creatinine and 48 PENDING 02-07-2 Glomerular [facility] 020 filtration N [facility] 11:19-0 rate.predicted panel ([id number]) 400 - Serum, Plasma or Blood Glucose [Mass/Vol] 94 mg/dL Negative 70-105 PENDING 06-0 9-2 mg/dL [facility] 0[facility] N [facility] 11:19-0 (05526) 400 Phosphate [Mass/Vol] 3.3 mg/dL Negative 2.3-4.7 PENDING -2 mg/dL [facility] 0[facility] N [facility] 11:19-0 (69024) 400 Potassium 4.9 mmol/L Negative 3.6-5.0 PENDING 02-07-2 [Moles/Vol] mmol/L [facility] N [facility] 11:19-0 (03297) 400 Sodium [Moles/Vol] 134 mmol/L Low 135-145 PENDING -2 mmol/L [facility] 0[facility] N [facility] 11:19-0 (00864) 400 Urea nitrogen 16 mg/dL Negative 7-18 mg/dL PENDING 2 [Mass/Vol] [facility] N [facility] 11:19-0 (01934) 400 Urea 14 mg/mg PENDING 02-07-2 nitrogen/Creatinine [facility] 020 [Mass ratio] N [facility] 11:19-0 (92297) 400 laboratory on 2020-01-31 Albumin [Mass/Vol] 4.6 g/dL Normal 3.6-5.1 Communi g/dL [facility] (40318) Albumin/Globulin 1.9 {ratio} Normal 1.0-2.5 Communi [Mass ratio] (calc) [facility] (79211) ALP [Catalytic 75 U/L Normal 37-153 U/L Communi activity/Vol] ty [facility] (29953) ALT [Catalytic 22 U/L Normal 6-29 U/L Communi activity/Vol] ty [facility] (35189) AST [Catalytic 21 U/L Normal 10-35 U/L Communi activity/Vol] [facility] (33217) Basophils (Bld) 0 10*3/uL Normal 0-200 Communi [#/Vol] cells/uL ty [facility] (86653) Basophils/100 WBC 0 % Normal % Communi (Bld) ty [facility] (11900) Bilirubin [Mass/Vol] 0.6 mg/dL Normal 0.2-1.2 Commu ni mg/dL ty [facility] (79734) Calcium [Mass/Vol] 10.3 mg/dL Normal 8.6-10.4 Communi mg/dL ty [facility] (78947) Chloride [Moles/Vol] 98 mmol/L Normal 98-110 Commu ni mmol/L ty [facility] (53491) CO2 [Moles/Vol] 27 mmol/L Normal 20-32 Communi mmol/L ty [facility] (98557) Creatinine 1.11 mg/dL High 0.60-0.93 Communi [Mass/Vol] mg/dL ty [facility] (62274) Digoxin [Mass/Vol] 0.7 Low 0.8-2.0 Communi mcg/L ty [facility] (87326) Eosinophils (Bld) 0.294 10*3/uL Normal 15-500 Commun i [#/Vol] cells/uL ty [facility] (54208) Eosinophils/100 WBC 4.9 % Normal % Commun i (Bld) [facility] (54705) Erythrocyte 13.0 % Normal 11.0-15.0 Communi distribution width % ty (RBC) [Ratio] [facility] (02383) GFR/1.73 sq 57 mL/min/{1.73_m2} Low > OR = 60 Commun i M.predicted among mL/min/1.7 ty blacks MDRD 3m2 Health (S/P/Bld) [Vol Center rate/Area] [facility] (28829) GFR/1.73 sq 49 mL/min/{1.73_m2} Low > OR = 60 Commun i M.predicted MDRD mL/min/1.7 ty (S/P/Bld) [Vol 3m2 Health rate/Area] [facility] (33696) Globulin (S) 2.4 g/dL Normal 1.9-3.7 Communi [Mass/Vol] g/dL ty (calc) [facility] (69307) Glucose [Mass/Vol] 111 mg/dL High 65-99 Communi mg/dL [facility] (62678) Hematocrit (Bld) 39.7 % Normal 35.0-45.0 Communi [Volume fraction] % ty [facility] (06048) Hemoglobin (Bld) 13.2 g/dL Normal 11.7-15.5 Communi [Mass/Vol] g/dL [facility] (81136) Lymphocytes (Bld) 0.93 10*3/uL Normal 850-3900 Communi [#/Vol] cells/uL [facility] (63970) Lymphocytes/100 WBC 15.5 % Normal % Commun i (Bld) [facility] (77098) MCH (RBC) [Entitic 30.4 pg Normal 27.0-33.0 Communi mass] pg [facility] (10479) MCHC (RBC) 33.2 g/dL Normal 32.0-36.0 Communi [Mass/Vol] g/dL [facility] (64700) MCV (RBC) [Entitic 91.5 fL Normal 80.0-100.0 Communi vol] fL [facility] (85163) Monocytes (Bld) 0.468 10*3/uL Normal 200-950 Communi [#/Vol] cells/uL [facility] (81711) Monocytes/100 WBC 7.8 % Normal % Communi (Bld) ty [facility] (41811) Neutrophils (Bld) 4.308 10*3/uL Normal 6703-6948 Commun i [#/Vol] cells/uL ty [facility] (74645) Neutrophils/100 WBC 71.8 % Normal % Commun i (Bld) ty [facility] (31039) Platelet mean volume 10.0 fL Normal 7.5-12.5 Commu ni (Bld) [Entitic vol] fL ty [facility] (13016) Platelets (Bld) 199 10*3/uL Normal 140-400 Communi [#/Vol] Thousand/u ty L [facility] (27544) Platelets LM Ql ADEQUATE Normal ADEQUATE Communi (Bld) ty [facility] (34107) Potassium 5.0 mmol/L Normal 3.5-5.3 Communi [Moles/Vol] mmol/L ty [facility] (48441) Protein [Mass/Vol] 7.0 g/dL Normal 6.1-8.1 Communi g/dL ty [facility] (27963) RBC (Bld) [#/Vol] 4.34 10*6/uL Normal 3.80-5.10 Communi Million/uL ty [facility] (84305) Sodium [Moles/Vol] 133 mmol/L Low 135-146 Communi mmol/L ty [facility] (27080) Urea nitrogen 17 mg/dL Normal 7-25 mg/dL Communi [Mass/Vol] ty [facility] (45602) Urea 15 mg/mg Normal 6-22 Communi nitrogen/Creatinine (calc) ty [Mass ratio] [facility] (39500) WBC (Bld) [#/Vol] 6.0 10*3/uL Normal 3.8-10.8 Communi Thousand/u ty L [facility] (60117) laboratory on 2020-01-25 Albumin [Mass/Vol] 4.5 g/dL Negative 3.2-4.5 PENDING 05-2 6-2 g/dL [facility] N [facility] 12:15-0 (65600) 400 Anion gap 8 mmol/L Negative 5-14 PENDING 05-26-2 [Moles/Vol] mmol/L [facility] N [facility] 12:15-0 (55292) 400 Calcium [Mass/Vol] 10.4 mg/dL High 8.5-10.1 PENDING 05- 26-2 mg/dL [facility] 0[facility] N [facility] 12:15-0 (38773) 400 Chloride [Moles/Vol] 99 mmol/L Negative 98-107 PENDING 05 -26-2 mmol/L [facility] 0[facility] N [facility] 12:15-0 (81346) 400 CO2 [Moles/Vol] 25 mmol/L Negative 21-32 PENDING 05-26-2 mmol/L [facility] 0[facility] N [facility] 12:15-0 (88226) 400 Creatinine 1.18 mg/dL Negative 0.60-1.30 PENDING 05-26-2 [Mass/Vol] mg/dL [facility] N [facility] 12:15-0 (68041) 400 Creatinine and 45 Invalid PENDING 05-26-2 Glomerular Interpreta [facility] 020 filtration tion Code N [facility] 12:15-0 rate.predicted panel (09307) 400 - Serum, Plasma or Blood Glucose [Mass/Vol] 112 mg/dL High 70-105 PENDING 05-2 6-2 mg/dL [facility] 020 N [facility] 12:15-0 (62802) 400 Phosphate [Mass/Vol] 3.5 mg/dL Negative 2.3-4.7 PENDING 05 -26-2 mg/dL [facility] 020 N [facility] 12:15-0 (54916) 400 Potassium 5.1 mmol/L High 3.6-5.0 PENDING 05-26-2 [Moles/Vol] mmol/L [facility] 0[facility] N [facility] 12:15-0 (17832) 400 Sodium [Moles/Vol] 132 mmol/L Low 135-145 PENDING 05- 26-2 mmol/L [facility] 020 N [facility] 12:15-0 ([id number]) 400 Urea nitrogen 19 mg/dL High 7-18 mg/dL PENDING 05-26-2 [Mass/Vol] LOCATIO 020 N [facility] 12:15-0 (45745) 400 Urea 16 mg/mg Invalid PENDING nitrogen/Creatinine Interpreta LOCATIO 020 [Mass ratio] tion Code N [facility] 12:15-0 ([id number]) 400 laboratory on 2019-12-23 Albumin [Mass/Vol] 4.6 g/dL High 3.2-4.5 PENDING 12-01 3-2 g/dL LOCATIO 020 N S 12:00-0 ([id number]) 400 Anion gap 12 mmol/L Negative 5-14 PENDING [Moles/Vol] mmol/L LOCATIO 020 N S 12:000 (44561) 400 Bacteria LM Ql TRACE Invalid PENDING (Urine sed) Interpreta LOCATIO 020 tion Code N [facility] 20:30-0 ([id number]) 400 Bilirubin Ql (U) Negative Invalid NEGATIVE PENDING Interpreta LOCATIO 020 tion Code N [facility] 20:30-0 ([id number]) 400 Calcium [Mass/Vol] 10.3 mg/dL High 8.5-10.1 PENDING -2 mg/dL LOCATIO 020 N [facility] 12:00-0 ([id number]) 400 Casts LM Ql (Urine NONE Invalid PENDING sed) Interpreta LOCATIO 020 tion Code N [facility] 20:30-0 ([id number]) 400 Chloride [Moles/Vol] 101 mmol/L Negative 98-107 PENDING 0 23-2 mmol/L LOCATIO 020 N [facility] 12:00-0 ([id number]) 400 Clarity (U) CLEAR Invalid PENDING Interpreta LOCATIO 020 tion Code N [facility] 20:30-0 ([id number]) 400 CO2 [Moles/Vol] 25 mmol/L Negative 21-32 PENDING 12-22- mmol/L LOCATIO 020 N S 12:00-0 ([id number]) 400 Color (U) YELLOW Invalid PENDING Interpreta LOCATIO 020 tion Code N [facility] 20:30-0 ([id number]) 400 Creatinine 1.31 mg/dL High 0.60-1.30 PENDING [Mass/Vol] mg/dL LOCATIO 020 N [facility] 12:00-0 ([id number]) 400 Creatinine and 40 PENDING Glomerular LOCATIO 020 filtration N [facility] 12:00-0 rate.predicted panel (52326) 400 - Serum, Plasma or Blood Crystals LM Ql NONE Invalid PENDING (Urine sed) Interpreta LOCATIO 020 tion Code N [facility] 20:30-0 ([id number]) 400 Epithelial RARE Invalid PENDING cells.squamous LM Ql Interpreta LOCATIO 020 (Urine sed) tion Code N [facility] 20:30-0 ([id number]) 400 Glucose [Mass/Vol] 120 mg/dL High 70-105 PENDING - 3-2 mg/dL LOCATIO 020 N [facility] 12:00-0 (35884) 400 Glucose Auto test Negative Invalid NEGATIVE PENDING 12-22 strip Ql (U) Interpreta LOCATIO 020 tion Code N S 20:30-0 ([id number]) 400 Ketones Auto test Negative Invalid NEGATIVE PENDING 12-22 strip Ql (U) Interpreta LOCATIO 020 tion Code N S 20:30-0 ([id number]) 400 Leukocyte esterase Negative Invalid NEGATIVE PENDING 12-01 3-2 Test strip Ql (U) Interpreta LOCATIO 020 tion Code N [facility] 20:30-0 (48901) 400 Magnesium [Mass/Vol] 2.2 mg/dL Negative 1.6-2.4 PENDING -2 mg/dL LOCATIO 020 N [facility] 12:00-0 ([id number]) 400 Mucus Ql (Urine sed) Negative Invalid PENDING 12-22 Interpreta LOCATIO 020 tion Code N [facility] 20:30-0 (41753) 400 Nitrite Ql (U) Negative Invalid NEGATIVE PENDING Interpreta LOCATIO 020 tion Code N [facility] 20:30-0 (90973) 400 pH (U) 7.0 [pH] Invalid 5-9 PENDING Interpreta LOCATIO 020 tion Code N [facility] 20:30-0 ([id number]) 400 Phosphate [Mass/Vol] 3.6 mg/dL Negative 2.3-4.7 PENDING -2 mg/dL LOCATIO 020 N [facility] 12:00-0 ([id number]) 400 Potassium 4.4 mmol/L Negative 3.6-5.0 PENDING [Moles/Vol] mmol/L LOCATIO 020 N [facility] 12:00-0 (72505) 400 Protein Ql (U) Negative Invalid NEGATIVE PENDING Interpreta LOCATIO 020 tion Code N [facility] 20:30-0 ([id number]) 400 RBC LM.HPF (Urine RARE Invalid PENDING sed) [#/Area] Interpreta LOCATIO 020 tion Code N [facility] 20:30-0 ([id number]) 400 RBC Ql (U) Negative Invalid NEGATIVE PENDING Interpreta LOCATIO 020 tion Code N [facility] 20:30-0 ([id number]) 400 Sodium [Moles/Vol] 138 mmol/L Negative 135-145 PENDING mmol/L LOCATIO 020 N [facility] 12:00-0 (95551) 400 Specific gravity (U) <= Invalid 1.016-1.02 PENDING 0 [Rel density] Interpreta 2 LOCATIO 020 tion Code N [facility] 20:30-0 (05864) 400 Urea nitrogen 16 mg/dL Negative 7-18 mg/dL PENDING [Mass/Vol] LOCATIO 020 N [facility] 12:00-0 ([id number]) 400 Urea 12 mg/mg PENDING nitrogen/Creatinine LOCATIO 020 [Mass ratio] N [facility] 12:00-0 ([id number]) 400 Urinalysis complete NO Invalid PENDING W Reflex Culture Interpreta LOCATIO 020 panel - Urine tion Code N [facility] 20:30-0 ([id number]) 400 Urobilinogen (U) 0.2 mg/dL Invalid < = 1.0 PENDING [Mass/Vol] Interpreta mg/dL LOCATIO 020 tion Code N [facility] 20:30-0 (41589) 400 WBC LM.HPF (Urine NONE Invalid PENDING sed) [#/Area] Interpreta LOCATIO 020 tion Code N [facility] 20:30-0 ([id number]) 400 laboratory on 2019-07-06 Albumin [Mass/Vol] 4.5 g/dL Normal 3.6-5.1 Communi g/dL ty [facility] (99888) Albumin/Globulin 1.9 {ratio} Normal 1.0-2.5 Communi [Mass ratio] (calc) [facility] (06758) ALP [Catalytic 81 U/L Normal 33-130 U/L Communi activity/Vol] [facility] (52542) ALT [Catalytic 19 U/L Normal 6-29 U/L Communi activity/Vol] [facility] (96316) AST [Catalytic 19 U/L Normal 10-35 U/L Communi activity/Vol] [facility] (47157) Bilirubin [Mass/Vol] 0.5 mg/dL Normal 0.2-1.2 Commu ni mg/dL [facility] (87133) Calcium [Mass/Vol] 9.9 mg/dL Normal 8.6-10.4 Communi mg/dL [facility] (81182) Chloride [Moles/Vol] 102 mmol/L Normal 98-110 Commu ni mmol/L [facility] (65820) Cholesterol 120 mg/dL Normal <200 mg/dL Communi [Mass/Vol] [facility] (67046) Cholesterol in HDL 45 mg/dL Low >50 mg/dL Communi [Mass/Vol] [facility] (04770) Cholesterol in LDL 52 mg/dL Normal mg/dL Communi [Mass/Vol] (calc) [facility] (47502) Cholesterol non HDL 75 mg/dL Normal <130 mg/dL Commun i [Mass/Vol] (calc) [facility] (05013) Cholesterol.total/Ch 2.7 {ratio} Normal <5.0 Commu ni olesterol in HDL (calc) ty [Mass ratio] [facility] (62621) CO2 [Moles/Vol] 30 mmol/L Normal 20-32 Communi mmol/L [facility] (63153) Creatinine 0.97 mg/dL High 0.60-0.93 Communi [Mass/Vol] mg/dL ty [facility] (28871) Digoxin [Mass/Vol] 0.7 Low 0.8-2.0 Communi mcg/L ty [facility] () GFR/1.73 sq 67 mL/min/{1.73_m2} Normal > OR = 60 Commun i M.predicted among mL/min/1.7 ty blacks MDRD 3m2 Health (S/P/Bld) [Vol Center rate/Area] [facility] () GFR/1.73 sq 58 mL/min/{1.73_m2} Low > OR = 60 Commun i M.predicted MDRD mL/min/1.7 ty (S/P/Bld) [Vol 3m2 Health rate/Area] [facility] () Globulin (S) 2.4 g/dL Normal 1.9-3.7 Communi [Mass/Vol] g/dL ty (calc) [facility] () Glucose [Mass/Vol] 113 mg/dL High 65-99 Communi mg/dL ty [facility] () HbA1c (Bld) [Mass 6.2 High <5.7 % of Communi fraction] total Hgb ty [facility] () Potassium 4.4 mmol/L Normal 3.5-5.3 Communi [Moles/Vol] mmol/L ty [facility] () Protein [Mass/Vol] 6.9 g/dL Normal 6.1-8.1 Communi g/dL ty [facility] () Sodium [Moles/Vol] 139 mmol/L Normal 135-146 Communi mmol/L ty [facility] () Triglyceride 145 mg/dL Normal <150 mg/dL Communi [Mass/Vol] ty [facility] () Urea nitrogen 16 mg/dL Normal 7-25 mg/dL Communi [Mass/Vol] ty [facility] () Urea 16 mg/mg Normal 6-22 Communi nitrogen/Creatinine (calc) ty [Mass ratio] [facility] (17548) laboratory on 2019-02-26 Albumin [Mass/Vol] 4.1 g/dL Normal 3.6-5.1 Communi g/dL ty [facility] (28469) Albumin/Globulin 2.0 {ratio} Normal 1.0-2.5 Communi [Mass ratio] (calc) ty [facility] (26766) ALP [Catalytic 79 U/L Normal 33-130 U/L Communi activity/Vol] ty [facility] (29567) ALT [Catalytic 16 U/L Normal 6-29 U/L Communi activity/Vol] ty [facility] (03871) AST [Catalytic 20 U/L Normal 10-35 U/L Communi activity/Vol] ty [facility] (59526) Bilirubin [Mass/Vol] 0.4 mg/dL Normal 0.2-1.2 Commu ni mg/dL ty [facility] (02968) Calcium [Mass/Vol] 9.1 mg/dL Normal 8.6-10.4 Communi mg/dL ty [facility] (99709) Chloride [Moles/Vol] 102 mmol/L Normal 98-110 Commu ni mmol/L ty [facility] (70983) CO2 [Moles/Vol] 26 mmol/L Normal 20-32 Communi mmol/L ty [facility] (29599) Creatinine 1.15 mg/dL High 0.60-0.93 Communi [Mass/Vol] mg/dL ty [facility] (58404) Digoxin [Mass/Vol] 0.6 Low 0.8-2.0 Communi mcg/L ty [facility] (95796) GFR/1.73 sq 55 mL/min/{1.73_m2} Low > OR = 60 Commun i M.predicted among mL/min/1.7 ty blacks MDRD [address] [place] [address] (S/P/Bld) [Vol Center rate/Area] [facility] (98508) GFR/1.73 sq 47 mL/min/{1.73_m2} Low > OR = 60 Commun i M.predicted MDRD mL/min/1.7 ty (S/P/Bld) [Vol 3m2 Health rate/Area] [facility] (76566) Globulin (S) 2.1 g/dL Normal 1.9-3.7 Communi [Mass/Vol] g/dL ty (calc) [facility] (88467) Glucose [Mass/Vol] 103 mg/dL High 65-99 Communi mg/dL ty [facility] (96080) HbA1c (Bld) [Mass 5.9 High <5.7 % of Communi fraction] total Hgb ty [facility] (32636) Potassium 4.7 mmol/L Normal 3.5-5.3 Communi [Moles/Vol] mmol/L ty [facility] (36612) Protein [Mass/Vol] 6.2 g/dL Normal 6.1-8.1 Communi g/dL ty [facility] (57062) Sodium [Moles/Vol] 135 mmol/L Normal 135-146 Communi mmol/L ty [facility] (87776) Urea nitrogen 21 mg/dL Normal 7-25 mg/dL Communi [Mass/Vol] ty [facility] (80144) Urea 18 mg/mg Normal 6-22 Communi nitrogen/Creatinine (calc) ty [Mass ratio] [facility] (10816) Social History Date Type Detail Facility Start: Tobacco smoking status RIIS Ex-smoker (finding ) [place] [facility] 07-02-2019 [facility] (80192) Start: Denies [place] [facility] 07-02-2019 [facility] (66621) Start: Former Smoker [place] [facility] 07-02-2019 [facility] (05866) Start: Cigarettes [place] [facility] 07-02-2019 [facility] (08919) Start: Past History [place] [facility] 06-21-2015 [facility] (79686) Start: No [place] [facility] 06-21-2015 [facility] (27917) Start: Sex Assigned At Female [facility] 1945 [facility] (26925) Vital Signs The data below is from unstructured sources Vital Response Date/Time Temperature (Fahrenheit) 98.3 degree s F (97.6 - 99.5) 03/06/2017 4:25pm Temperature (Calculated Celsius) 36. 37438 degrees C (36.4 - 37.5) 03/06/2017 4:25pm Temperature Source Tympanic 03/06/2017 4:25pm Pulse Rate (adult) 57 bpm (60 - 90) 03/06/2017 4:25pm Respiratory Rate 16 bpm (12 - 24) 03/06/2017 4:25pm O2 Sat by Pulse Oximetry 97 % (88 - 100) 03/06/2017 4:25pm Blood Pressure 109/71 mm Hg 03/06/2017 4:25pm Blood Pressure Mean 84 mm Hg 03/06/2017 4:25pm Pain Numeric Pain Scale 4 4:25pm Height (Feet) 5 feet 01/2017 4:25pm Height (Inches) 7.00 inches 03/06/2017 4:25pm Height (Calculated Centimeters) 170. 648460 cm 03/06/2017 4:25pm Weight (Pounds) 162 pounds 03/06/2017 4:25pm Weight (Ounces) 7.0 oz 0 03/06/2017 4:25pm Weight (Calculated Grams) 00117.411 gm 03/06/2017 4:25pm Weight (Calculated Kilograms) 73.680 411 kilograms 03/06/2017 4:25pm Calculated BMI 26.15 01/2017 4:25pm Capillary Refill Capillary Refill Less Than 3 Seconds 03/06/2017 4:25pm Vital Reading Result Col lection Date/Time Vital Reading Result Col lection Date/Time Functional Status The data below is from unstructured sourcesNo functional status results.No functional status results.No functional status results.No functional status results.No functional status results.No functional status information available.No functional status information available.No Functional Status information availableNo Functional Status information available Mental Status The data below is from unstructured sourcesNo Mental Status Information Available Evaluation note Note Date & Note Facility Type Evaluation No Assessments Information Available [facility] ([id number]) History general Narrative - Reported Note Date & Note Facility Type History general Narrative - Reported Type Medical hypertension History Medical spinal stenosis History Medical depression History Medical mitral valve regurgitation History Medical Atrial fibrillation History Surgical mitral valve repair History Surgical tonsillectomy History Surgical hysterectomy History Surgical appendectomy History [facility] (01274) Advance Directives Directive Response Recor ded Date/Time Advance Directives No 1:44am Health Care Power of Nps No 06/21/15 1:44am Organ Donor No 06/21/15 1:44am Directive Response Recor ded Date/Time Advance Directives No 4:25pm Health Care Power of Nps No 03/06/17 4:25pm Organ Donor No 03/06/17 4:25pm Resuscitation Status Full Code 03/06/17 4:25pm Advance Directive Response Recorded Date/Time Advance Directives No No 2018 4:35pm Health Care Power of Nps No July 02, 2019 4:35pm Organ Donor No July 02, 2019 4:35pm Resuscitation Status Full Code July 02, 2019 4:35pm Discharge Instructions No hospital discharge instructions.No hospital discharge instructions.No hospital discharge instructions.No hospital discharge instruction information available. Chief Complaint and Reason for Visit Chief Complaint Cough/Cold/Flu Sympt oms Reason for Visit [id number] foreign body next to pulmonary vein thickening of the proximal stomach Additional Source Comments This clinical document has been generated using [employer] software that has been certified by the Office of the National Coordinator for Health Information Technology (ONC 15.99.04.3023.Diam.31.00.0.980779) and the National Committee for Business Continuity Planner (NCQA, as an eMeasure certified technology). FOR RECORDS PERTAINING TO PATIENTS WHO ARE OR HAVE BEEN ENROLLED IN A CHEMICAL D EPENDENCY/SUBSTANCE ABUSE PROGRAM, SOME INFORMATION MAY BE OMITTED. This clinica l summary was aggregated from multiple sources. Caution should be exercised in using it in the provision of clinical care. This summary normalizes information from multiple sources, and as a consequence, information in this document may ma terially change the coding, format and clinical context of patient data. In cesar tion, data may be omitted in some cases. CLINICAL DECISIONS SHOULD BE BASED ON T HE PRIMARY CLINICAL RECORDS. [employer] provides no warranty or guara ntee of the accuracy or completeness of information in this document.The followi ng information is based on time limited clinical information UNRECOGNIZED CONTENT PROVIDED BELOW FOR UNRECOGNIZED SECTION REASON FOR VISIT refill request
--- OUTSIDE RECORDS SUMMARY | 2020-03-11 23:15 | XMS REPORT | Clinical Summary ---
Author Author [facility] Address Unknown Phone Unavailable Care Team Providers Care Bankruptcy Law Specialist Name Role Phone Self, Noble MANSFIELD PCP Source Comments Some departments are not documenting in the electronic medical record. If you d o not see the information that you expected, contact [facility] in [facility] Management department at [phone] for further assistan ce in locating additional records.[facility] Allergies Not on File Medications Not on file Active Problems Not on file Social History Date Tobacco Use Types Packs/Day Years Used Never Assessed Sex Assigned at Date Recorded Not on file Industry Job Start Date Occupation Not on file Not on file Not on file Travel End Travel History Travel Start No recent travel history available. Last Filed Vital Signs Not on file Plan of Treatment Health Maintenance Due Date Last Done Comments MEDICARE ANNUAL WELLNESS 1945 VISIT DTAP/TDAP VACCINES (1 - 1963 Tdap) HEPATITIS C SCREENING 1963 PHYSICAL (COMPREHENSIVE) 1963 EXAM BREAST CANCER SCREENING 1985 COLORECTAL CANCER 1995 SCREENING SHINGLES RECOMBINANT 1995 VACCINE (1 of 2) OSTEOPOROSIS 2010 SCREENING/MONITORING PNEUMONIA (PPSV23) 2010 VACCINE (1 of 1 - PPSV23) INFLUENZA VACCINE 06/01/2020 Results Not on filefrom Last 3 Months Insurance Type Payer Benefit Subscriber ID Effective Phone Address Plan / Dates Group Medicare MEDICARE MEDICARE xxxxxxxxxx 1995- PART A AND Present B PPO [facility] AARP xxxxxxxxx 2011-P resent [id number] Advance Directives Patient Tube Buffer Explanation Type Date Recorded Advance 06/18/2013 9:27 AM Directive/DPOA
--- OUTSIDE RECORDS SUMMARY | 2020-03-11 23:16 | XMS REPORT ---
Author Author Izabel FRAGOSO [facility] Address [address] [place] [address] Care Team Providers Care Humanities Division Chair Name Role Phone CAPRI FRAGOSO Unavailable PROBLEMS Type Condition ICD9-CM Code FGU39-LC Code Onset Dates Condition S tatus SNOMED Code Problem Pessary maintenance Z46.89 17 Oct, 2010 Active 493003889 Problem Osteoarthritis M19.90 11 Oct, 2012 Active 39 8848435 Problem Cerebral microvascular disease I67.9 01 January, 011 Active 38860670 Problem Low back pain radiating to left leg M54.5 03 2013 Active 192077611 Problem Left temporal headache R51 Aug, Acti ve 54455035 Problem Urinary, incontinence, stress female N39.3 17 Oct, 2010 Active 40800082 Problem Paresthesias/numbness R20.9 Aug, Activ e 66442902 Problem Urinary hesitancy R39.11 Active 59 64563 Problem Mixed hyperlipidemia E78.2 Active 509006473 Problem A-fib I48.91 13 Jan, 2018 Active 5427296 4 Problem Chronic kidney disease (CKD), stage III (moderate) N18.3 Active 650041666 Problem Positive NEELA (antinuclear antibody) R76.8 11 2012 Active 683710174 Problem Chronic kidney disease, stage III (moderate) N18.3 Active 542735212 Problem Essential hypertension I10 Active 59120051 Problem Paroxysmal atrial fibrillation I48.0 Active 480699955 Problem Hypertensive chronic kidney disease with stage 1 through stage 4 chronic kidney disease, or unspecified chronic kidney disease I12.9 Active [id number] ALLERGIES No Information ENCOUNTERS Encounter Location Date Diagnosis [address] [id number] Mar, [address] [address] Jan, Essential hypertension I10 [facility] [address] [place] [address] Jan, [facility] [address] [place] [address] December, Essential hypertension I10 [facility] [address] [place] [address] Nov, [facility] [address] [place] [address] Oct, Essential hypertension I10 [facility] [address] [place] [address] Oct, [facility] [address] [place] [address] Oct, [facility] [address] [place] [address] Oct, Essential hypertension I10 ; Mixed hyper lipidemia E78.2 ; Hyperglycemia R73.9 ; Chronic kidney disease, stage III (moderate) N18.3 ; Urinary hesitancy R39.11 and Paroxysmal atrial fibrillation I48.0 [place] [id number] [place] [id number] [place] [phone] Sep, [place] [address] [address] [place] [id number] [place] [phone] Sep, [facility] [place] [address] [place] [id number] [place] [phone] Aug, [place] [address] [address] [place] [id number] [place] [phone] Aug, [place] [address] [address] [place] [id number] [place] [phone] May, IMMUNIZATIONS No Known Immunizations SOCIAL HISTORY Never Assessed REASON FOR VISIT refill request PLAN OF CARE VITAL SIGNS MEDICATIONS Medication Instructions Dosage Frequency Start Date End Date Duration S tatus Oxycodone-Acetaminophen 10-325 mg Orally every 6 hrs 1 tablet as ne eded 6h Oct, 28 days Active RESULTS No Results PROCEDURES No Known procedures INSTRUCTIONS MEDICATIONS ADMINISTERED No Known Medications MEDICAL (GENERAL) HISTORY Type Description Date Medical History hypertension Medical History spinal stenosis Medical History depression Medical History mitral valve regurgitation Medical History Atrial fibrillation Surgical History mitral valve repair Surgical History tonsillectomy Surgical History hysterectomy Surgical History appendectomy
--- OUTSIDE RECORDS SUMMARY | 2020-03-11 23:16 | XMS REPORT | Continuity of Care Document ---
Author Organization Unknown Address Unknown Phone Unavailable Allergies Active Description Code Type Severity Reaction Onset Reported/Identified Relationship to Patient Clinical Status Yes Penicillins [id number] Drug Aller gy Unknown N/A 06/20/2015 Medications There is no data. Problems Date Dx Coded Attending Type Code Diagnosis Diagnosed By 01/09/2012 Ot 724.4 LUMB OSACRAL NEURITIS NOS 01/09/2012 Ot V57.1 PHYS ICAL THERAPY NEC 06/21/2015 TYREE MANSFIELD, Janes FREEMAN Ot E78 .0 06/21/2015 TYREE MANSFIELD, Janes FREEMAN Ot F32 .9 06/21/2015 TYREE MANSFIELD, Janes FREEMAN Ot F41 .9 06/21/2015 TYREE MANSFIELD, Janes FREEMAN Ot I10 06/21/2015 TYREE MANSFIELD, Janes FREEMAN Ot I34 .0 06/21/2015 TYREE MANSFIELD, Janes FREEMAN Ot I42 .9 06/21/2015 TYREE MANSFIELD, Janes FREEMAN Ot I48.91 06/21/2015 TYREE MANSFIELD, Janes FREEMAN Ot I50.21 06/21/2015 TYREE MANSFIELD, Janes FREEMAN Ot M48.00 06/21/2015 TYREE MANSFIELD, Janes FREEMAN Ot Z86.73 06/21/2015 TYREE MANSFIELD, Janes FREEMAN Ot Z87.891 06/21/2015 TYREE MANSFIELD, Janes FREEMAN Ot E78 .0 06/21/2015 TYREE MANSFIELD, Janes FREEMAN Ot F32 .9 06/21/2015 TYREE MANSFIELD, Janes FREEMAN Ot F41 .9 06/21/2015 TYREE MANSFIELD, Janes FREEMAN Ot I10 06/21/2015 TYREE MANSFIELD, Janes FREEMAN Ot I48.91 06/21/2015 TYREE MANSFIELD, Janes FREEMAN Ot M48.00 06/21/2015 TYREE MANSFIELD, M PETE Ot R07.89 06/21/2015 TYREE MANSFIELD, M PETE Ot R11 .0 06/21/2015 TYREE MANSFIELD, M PETE Ot Z86.73 06/21/2015 TYREE MANSFIELD, M PETE Ot Z87.891 06/22/2015 TYREE MANSFIELD, M PETE Ot E78 .0 06/22/2015 TYREE MANSFIELD, M PETE Ot F32 .9 06/22/2015 TYREE MANSFIELD, M PETE Ot F41 .9 06/22/2015 TYREE MANSFIELD, M PETE Ot I10 06/22/2015 TYREE MANSFIELD, M PETE Ot I48.91 06/22/2015 TYREE MANSFIELD, M PETE Ot M48.00 06/22/2015 TYREE MANSFIELD, M PETE Ot R07.89 06/22/2015 TYREE MANSFIELD, M PETE Ot R11 .0 06/22/2015 TYREE MANSFIELD, M PETE Ot Z86.73 06/22/2015 TYREE MANSFIELD, M PETE Ot Z87.891 06/22/2015 TYREE MANSFIELD, M PETE Ot E78 .0 06/22/2015 TYREE MANSFIELD, M PETE Ot F32 .9 06/22/2015 TYREE MANSFIELD, M PETE Ot F41 .9 06/22/2015 TYREE MANSFIELD, M PETE Ot I10 06/22/2015 TYREE MANSFIELD, M PETE Ot I48.91 06/22/2015 TYREE MANSFIELD, M PETE Ot M48.00 06/22/2015 TYREE MANSFIELD, M PETE Ot R07.89 06/22/2015 TYREE MANSFIELD, M PETE Ot R11 .0 06/22/2015 TYREE MANSFIELD, M PETE Ot Z86.73 06/22/2015 TYREE MANSFIELD, M PETE Ot Z87.891 06/22/2015 TYREE MANSFIELD, M PETE Ot E78 .0 PURE HYPERCHOLESTEROLEMIA 06/22/2015 TYREE MANSFIELD, Janes FREEMAN Ot F32 .9 MAJOR DEPRESSIVE DISORDER, SINGLE EPISOD 06/22/2015 TYREE MANSFIELD, Janes FREEMAN Ot F41 .9 ANXIETY DISORDER, UNSPECIFIED 06/22/2015 TYREE MANSFIELD, Janes FREEMAN Ot I10 ESSENTIAL (PRIMARY) HYPERTENSION 06/22/2015 Janes CLEMENTS MD Ot I34 .0 NONRHEUMATIC MITRAL (VALVE) INSUFFICIENC 06/22/2015 Janes CLEMENTS MD Ot I42 .9 CARDIOMYOPATHY, UNSPECIFIED 06/22/2015 Janes CLEMENTS MD Ot I48.91 UNSPECIFIED ATRIAL FIBRILLATION 06/22/2015 Janes CLEMENTS MD Ot I50.21 ACUTE SYSTOLIC (CONGESTIVE) HEART FAILUR 06/22/2015 Janes CLEMENTS MD Ot M48.00 SPINAL STENOSIS, SITE UNSPECIFIED 06/22/2015 Janes CLEMENTS MD Ot R07.89 06/22/2015 Janes CLEMENTS MD Ot R11 .0 06/22/2015 Janes CLEMENTS MD Ot Z86.73 PRSNL HX OF TIA (TIA), AND CEREB INFRC W 06/22/2015 TYREE MANSFIELD, Janes FREEMAN Ot Z87.891 PERSONAL HISTORY OF NICOTINE DEPENDENCE 06/22/2015 Janes CLEMENTS MD Ot E78 .0 06/22/2015 Janes CLEMENTS MD Ot F32 .9 06/22/2015 Janes CLEMENTS MD Ot F41 .9 06/22/2015 Janes CLEMENTS MD Ot I10 06/22/2015 Janes CLEMENTS MD Ot I48.91 06/22/2015 Janes CLEMENTS MD Ot M48.00 06/22/2015 Janes CLEMENTS MD Ot R07.89 06/22/2015 Janes CLEMENTS MD Ot R11 .0 06/22/2015 Janes CLEMENTS MD Ot Z86.73 06/22/2015 Janes CLEMENTS MD Ot Z87.891 08/16/2015 TYREE MANSFIELD, M PETE Ot E78 .0 08/16/2015 TYREE MANSFIELD, M PETE Ot F32 .9 08/16/2015 TYREE MANSFIELD, M PETE Ot F41 .9 08/16/2015 TYREE MANSFIELD, M PETE Ot I10 08/16/2015 TYREE MANSFIELD, M PETE Ot I34 .0 08/16/2015 TYREE MANSFIELD, M PETE Ot I42 .9 08/16/2015 TYREE MANSFIELD, M PETE Ot I48.91 [...] Z95.2 PRESENCE OF PROSTHETIC HEART VALVE 01/15/2016 SUZI PAYTON MDER R Ot Z48.812 ENCNTR FOR SURGICAL AFTCR FOLLOWING SURG 01/15/2016 FITO MANSFIELD, ELLY R Ot Z95.2 PRESENCE OF PROSTHETIC HEART VALVE 01/16/2016 FITO MANSFIELD, ELLY R Ot I10 ESSENTIAL (PRIMARY) HYPERTENSION 01/16/2016 FITO MANSFIELD, ELLY R Ot I42.9 CARDIOMYOPATHY, UNSPECIFIED 01/16/2016 FITO MANSFIELD, ELLY R Ot I48.0 PAROXYSMAL ATRIAL FIBRILLATION 01/16/2016 FITO MANSFIELD, ELLY R Ot Z98.89 OTHER SPECIFIED POSTPROCEDURAL STATES 02/14/2016 ELLY PAYTON MD R Ot I10 ESSENTIAL (PRIMARY) HYPERTENSION 02/16/2016 [...] I10 ESSENTIAL (PRIMARY) HYPERTENSION 03/13/2016 FITO MANSFIELD, CHRISTOPHER R Ot I10 ESSENTIAL (PRIMARY) HYPERTENSION 03/13/2016 [...] R Ot I10 ESSENTIAL (PRIMARY) HYPERTENSION 10/08/2016 FITO MANSFIELD, ELLY R Ot I42.9 CARDIOMYOPATHY, UNSPECIFIED 10/08/2016 FITO MANSFIELD, ELLY R Ot I48.0 PAROXYSMAL ATRIAL FIBRILLATION 10/08/2016 ELLY PAYTON MD R Ot Z98.89 OTHER SPECIFIED POSTPROCEDURAL STATES 10/08/2016 ELLY PAYTON MD R Ot I10 ESSENTIAL (PRIMARY) HYPERTENSION 10/08/2016 ELLY PAYTON MD R Ot Z48.812 ENCNTR FOR SURGICAL AFTCR FOLLOWING SURG 10/08/2016 ELLY PAYTON MD R Ot Z95.2 PRESENCE OF PROSTHETIC HEART VALVE 10/08/2016 SUZI PAYTON MDER R Ot I10 ESSENTIAL (PRIMARY) HYPERTENSION 10/08/2016 FITO MANSFIELD, ELLY R Ot I42.9 CARDIOMYOPATHY, UNSPECIFIED 10/08/2016 FITO MANSFIELD, ELLY Rai Ot I48.0 PAROXYSMAL ATRIAL FIBRILLATION 10/08/2016 FITO MANSFIELD, ELLY Rai Ot Z98.89 OTHER SPECIFIED POSTPROCEDURAL STATES 10/08/2016 FITO MANSFIELD, ELLY R Ot I10 ESSENTIAL (PRIMARY) HYPERTENSION 10/08/2016 FITO MANSFIELD, ELLY Rai Ot Z48.812 ENCNTR FOR SURGICAL AFTCR FOLLOWING SURG 10/08/2016 FITO MANSFIELD, ELLY Rai Ot Z95.2 PRESENCE OF PROSTHETIC HEART VALVE 10/09/2016 FITO MANSFIELD, ELLY R Ot I10 ESSENTIAL (PRIMARY) HYPERTENSION 10/29/2016 FITO MANSFIELD, ELLY R Ot I10 ESSENTIAL (PRIMARY) HYPERTENSION 01/21/2017 ELLY PAYTON MD R Ot I10 ESSENTIAL (PRIMARY) HYPERTENSION 01/21/2017 FITO MANSFIELD, ELLY R Ot I10 ESSENTIAL (PRIMARY) HYPERTENSION 02/25/2017 FITO MANSFIELD, ELLY R Ot I10 ESSENTIAL (PRIMARY) HYPERTENSION 03/06/2017 NEAL WEISS Ot E78.00 PURE HYPERCHOLESTEROLEMIA, UNSPECIFIED 03/06/2017 NEAL WEISSP Ot F32.9 MAJOR DEPRESSIVE DISORDER, SINGLE EPISOD 03/06/2017 NEAL WEISSP Ot F41.9 ANXIETY DISORDER, UNSPECIFIED 03/06/2017 ISELA NEAL FARM OPERATIONS TECHNICAL DIRECTOR Ot I10 ESSENTIAL (PRIMARY) HYPERTENSION 03/06/2017 NEAL WEISS FARM OPERATIONS TECHNICAL DIRECTOR Ot M48.00 SPINAL STENOSIS, SITE UNSPECIFIED 03/06/2017 NEAL WEISSP Ot S00.83XA CONTUSION OF OTHER PART OF HEAD, INITIAL 03/06/2017 NEAL WEISSP Ot W01.10XA FALL SAME LEV FROM SLIP/TRIP W STRIKE AG 03/06/2017 NEAL WEISS Ot Z79.01 WATER PROOFER (CURRENT) USE OF ANTICOAGULANT 03/06/2017 NEAL WEISS Ot Z79.82 ASSISTED (CURRENT) USE OF ASPIRIN 03/06/2017 ISELA, NEAL FARM OPERATIONS TECHNICAL DIRECTOR Ot Z86.73 PRSNL HX OF TIA (TIA), AND CEREB INFRC W 03/06/2017 NEAL WEISS FARM OPERATIONS TECHNICAL DIRECTOR Ot Z87.891 PERSONAL HISTORY OF NICOTINE DEPENDENCE 03/10/2017 ISELA, NEAL DENGP Ot E78.00 PURE HYPERCHOLESTEROLEMIA, UNSPECIFIED 03/10/2017 ISELA, NEAL FARM OPERATIONS TECHNICAL DIRECTOR Ot F32.9 MAJOR DEPRESSIVE DISORDER, SINGLE EPISOD 03/10/2017 ISELA, NEAL DENGP Ot F41.9 ANXIETY DISORDER, UNSPECIFIED 03/10/2017 ISELA, NEAL FARM OPERATIONS TECHNICAL DIRECTOR Ot I10 ESSENTIAL (PRIMARY) HYPERTENSION 03/10/2017 ISELA, NEAL FARM OPERATIONS TECHNICAL DIRECTOR Ot M48.00 SPINAL STENOSIS, SITE UNSPECIFIED 03/10/2017 ISELA, NEAL FARM OPERATIONS TECHNICAL DIRECTOR Ot S00.83XA CONTUSION OF OTHER PART OF HEAD, INITIAL 03/10/2017 ISELA, NEAL FARM OPERATIONS TECHNICAL DIRECTOR Ot W01.10XA FALL SAME LEV FROM SLIP/TRIP W STRIKE AG 03/10/2017 ISELA, NEAL DENGP Ot Z79.01 WATER PROOFER (CURRENT) USE OF ANTICOAGULANT 03/10/2017 ISELA NEAL [employer]ARM OPERATIONS TECHNICAL DIRECTOR Ot Z79.82 ASSISTED (CURRENT) USE OF ASPIRIN 03/10/2017 ISELA, NEAL FARM OPERATIONS TECHNICAL DIRECTOR Ot Z86.73 PRSNL HX OF TIA (TIA), AND CEREB INFRC W 03/10/2017 ISELA, NEAL DENGP Ot Z87.891 PERSONAL HISTORY OF NICOTINE DEPENDENCE 03/21/2017 FITO MANSFIELD, ELLY R Ot I10 ESSENTIAL (PRIMARY) HYPERTENSION 03/21/2017 ELLY PAYTON MD R Ot I10 ESSENTIAL (PRIMARY) HYPERTENSION 09/03/2018 FITO MANSFIELD, ELLY R Ot I10 ESSENTIAL (PRIMARY) HYPERTENSION 09/03/2018 FITO MANSFIELD, ELLY R Ot I42.9 CARDIOMYOPATHY, UNSPECIFIED 09/03/2018 FITO MANSFIELD, ELLY Rai Ot I48.0 PAROXYSMAL ATRIAL FIBRILLATION 09/03/2018 FITO MANSFIELD, ELYL Rai Ot Z98.89 OTHER SPECIFIED POSTPROCEDURAL STATES 09/03/2018 FITO MANSFIELD, ELLY R Ot I10 ESSENTIAL (PRIMARY) HYPERTENSION 09/03/2018 FITO MANSFIELD, ELLY Rai Ot Z48.812 ENCNTR FOR SURGICAL AFTCR FOLLOWING SURG 09/03/2018 FITO MANSFIELD, ELLY R Ot Z95.2 PRESENCE OF PROSTHETIC HEART VALVE 09/03/2018 FITO MANSFIELD, ELLY R Ot I10 ESSENTIAL (PRIMARY) HYPERTENSION 09/03/2018 FITO MANSFIELD, ELLY R Ot I10 ESSENTIAL (PRIMARY) HYPERTENSION 09/08/2018 FITO MANSFIELD, ELLY R Ot I10 ESSENTIAL (PRIMARY) HYPERTENSION 09/08/2018 FITO MANSFIELD, ELLY R Ot I42.9 CARDIOMYOPATHY, UNSPECIFIED 09/25/2018 FITO MANSFIELD, ELLY R Ot I10 ESSENTIAL (PRIMARY) HYPERTENSION 09/25/2018 FITO MANSFIELD, ELLY R Ot I42.9 CARDIOMYOPATHY, UNSPECIFIED 01/29/2019 FITO MANSFIELD, ELLY Rai Ot E78.00 PURE HYPERCHOLESTEROLEMIA, UNSPECIFIED 01/29/2019 FITO MANSFIELD, ELLY R Ot I10 ESSENTIAL (PRIMARY) HYPERTENSION 01/29/2019 FITO MANSFIELD, ELLY R Ot I48.91 UNSPECIFIED ATRIAL FIBRILLATION 01/29/2019 FITO MANSFIELD, ELLY R Ot Z95.2 PRESENCE OF PROSTHETIC HEART VALVE 02/18/2019 FITO MANSFIELD, ELLY Rai Ot E78.00 PURE HYPERCHOLESTEROLEMIA, UNSPECIFIED 02/18/2019 FITO MANSFIELD, ELLY R Ot I10 ESSENTIAL (PRIMARY) HYPERTENSION 02/18/2019 FITO MANSFIELD, ELLY R Ot I48.91 UNSPECIFIED ATRIAL FIBRILLATION 02/18/2019 FITO MANSFIELD, ELLY R Ot Z95.2 PRESENCE OF PROSTHETIC HEART VALVE 07/01/2019 FITO MANSFIELD, ELLY R Ot I10 ESSENTIAL (PRIMARY) HYPERTENSION 07/01/2019 FITO MANSFIELD, ELLY R Ot I42.9 CARDIOMYOPATHY, UNSPECIFIED 07/01/2019 FITO MANSFIELD, ELLY R Ot I48.0 PAROXYSMAL ATRIAL FIBRILLATION 07/01/2019 FITO MANSFIELD, ELLY Rai Ot Z98.89 OTHER SPECIFIED POSTPROCEDURAL STATES 07/01/2019 ELLY PAYTON MD R Ot I10 ESSENTIAL (PRIMARY) HYPERTENSION 07/01/2019 FITO MANSFIELD, ELLY Rai Ot Z48.812 ENCNTR FOR SURGICAL AFTCR FOLLOWING SURG 07/01/2019 FITO MANSFIELD, ELLY Rai Ot Z95.2 PRESENCE OF PROSTHETIC HEART VALVE 07/01/2019 FITO MANSFIELD, ELLY R Ot I10 ESSENTIAL (PRIMARY) HYPERTENSION 07/01/2019 FITO MANSFIELD, ELLY R Ot I10 ESSENTIAL (PRIMARY) HYPERTENSION 07/01/2019 FITO MANSFIELD, ELLY R Ot I10 ESSENTIAL (PRIMARY) HYPERTENSION 07/01/2019 FITO MANSFIELD, ELLY R Ot I42.9 CARDIOMYOPATHY, UNSPECIFIED 07/01/2019 FITO MANSFIELD, ELLY Rai Ot E78.00 PURE HYPERCHOLESTEROLEMIA, UNSPECIFIED 07/01/2019 FITO MANSFIELD, ELLY R Ot I10 ESSENTIAL (PRIMARY) HYPERTENSION 07/01/2019 FITO MANSFIELD, ELLY R Ot I48.91 UNSPECIFIED ATRIAL FIBRILLATION 07/01/2019 FITO MANSFIELD, ELLY Rai Ot Z95.2 PRESENCE OF PROSTHETIC HEART VALVE 07/02/2019 DUNIA SIERRA APRN Ot E78.00 PURE HYPERCHOLESTEROLEMIA, UNSPECIFIED 07/02/2019 DUNIA SIERRA APRN Ot F32 .9 MAJOR DEPRESSIVE DISORDER, SINGLE EPISOD 07/02/2019 DUNIA SIERRA APRN Ot F41 .9 ANXIETY DISORDER, UNSPECIFIED 07/02/2019 DUNIA SIERRA APRN Ot I10 ESSENTIAL (PRIMARY) HYPERTENSION 07/02/2019 DUNIA SIERRA APRN Ot J18 .9 PNEUMONIA, UNSPECIFIED ORGANISM 07/02/2019 DUNIA SIERRA APRN Ot K31.89 OTHER DISEASES OF STOMACH AND DUODENUM 07/02/2019 DUNIA SIERRA APRN Ot R05 COUGH 07/02/2019 DUNIA SIERRA APRN Ot T17.808A UNSP FB IN OTH PRT RESP TRACT CAUSING OT 07/02/2019 DUNIA SIERRA APRN Ot Z79.01 WATER PROOFER (CURRENT) USE OF ANTICOAGULANT 07/02/2019 DUNIA SIERRA APRN Ot Z79.82 WATER PROOFER (CURRENT) USE OF ASPIRIN 07/02/2019 DUNIA SIERRA APRN Ot Z86.73 PRSNL HX OF TIA (TIA), AND CEREB INFRC W 07/02/2019 DUNIA SIERRA APRN Ot Z87.891 PERSONAL HISTORY OF NICOTINE DEPENDENCE 07/02/2019 DUNIA SIERRA DOCUMENT REVIEW SPECIALIST Ot Z88 .0 ALLERGY STATUS TO PENICILLIN 07/02/2019 DUNIA SIERRA DOCUMENT REVIEW SPECIALIST Ot Z90.710 ACQUIRED ABSENCE OF BOTH CERVIX AND UTER 07/05/2019 ELLY PAYTON MD Ot J98.11 ATELECTASIS 07/05/2019 ELLY PAYTON MD R Ot R05 COUGH 07/05/2019 ELLY PAYTON MD R Ot Z98.890 OTHER SPECIFIED POSTPROCEDURAL STATES 07/22/2019 ELLY PAYTON MD Ot J98.11 ATELECTASIS 07/22/2019 ELLY PAYTON MD Ot R05 COUGH 07/22/2019 ELLY PAYTON MD Ot Z98.890 OTHER SPECIFIED POSTPROCEDURAL STATES 12/24/2019 ANALI BANDA MD Ot E78.00 PURE HYPERCHOLESTEROLEMIA, UNSPECIFIED 12/24/2019 ANALI BANDA MD Ot F32.9 MAJOR DEPRESSIVE DISORDER, SINGLE EPISOD 12/24/2019 ANALI BANDA MD, Ot F41.9 ANXIETY DISORDER, UNSPECIFIED 12/24/2019 ANALI BANDA MD Ot I10 ESSENTIAL (PRIMARY) HYPERTENSION 12/24/2019 ANALI BANDA MD Ot M25.511 PAIN IN RIGHT SHOULDER 12/24/2019 ANALI BANDA MD Ot R40.2142 COMA SCALE, EYES OPEN, SPONTANEOUS, EMR 12/24/2019 ANALI BANDA MD, Ot R40.2252 COMA SCALE, BEST VERBAL RESPONSE, ORIENT 12/24/2019 ANALI BANDA MD, Ot R40.2362 COMA SCALE, BEST MOTOR RESPONSE, OBEYS C 12/24/2019 ANALI BANDA MD Ot S20.211A CONTUSION OF RIGHT FRONT WALL OF THORAX, 12/24/2019 ANALI BANDA MD Ot S40.011A CONTUSION OF RIGHT SHOULDER, INITIAL ENC 12/24/2019 ANALI BANDA MD Ot W10.9XXA FALL (ON) (FROM) UNSPECIFIED STAIRS AND 12/24/2019 ANALI BANDA MD Ot Y92.[address] IN UNSP NON-INSTITUT (PRIVATE 12/24/2019 ANALI BANDA MD, Ot Z79.01 WATER PROOFER (CURRENT) USE OF ANTICOAGULANT 12/24/2019 ANALI BANDA MD, Ot Z79.82 WATER PROOFER (CURRENT) USE OF ASPIRIN 12/24/2019 ANALI BANDA MD, Ot Z86.73 PRSNL HX OF TIA (TIA), AND CEREB INFRC W 12/24/2019 ANALI BADNA MD, Ot Z88.0 ALLERGY STATUS TO PENICILLIN 12/24/2019 ELLY PAYTON MD Ot I10 ESSENTIAL (PRIMARY) HYPERTENSION 12/27/2019 ANALI BANDA MD, Ot E78.00 PURE HYPERCHOLESTEROLEMIA, UNSPECIFIED 12/27/2019 ANALI BANDA MD, Ot F32.9 MAJOR DEPRESSIVE DISORDER, SINGLE EPISOD 12/27/2019 ANALI BANDA MD, Ot F41.9 ANXIETY DISORDER, UNSPECIFIED 12/27/2019 ANALI BANDA MD Ot I10 ESSENTIAL (PRIMARY) HYPERTENSION 12/27/2019 ANALI BANDA MD Ot M25.511 PAIN IN RIGHT SHOULDER 12/27/2019 ANALI BANDA MD Ot R40.2142 COMA SCALE, EYES OPEN, SPONTANEOUS, EMR 12/27/2019 ANALI BADNA MD, Ot R40.2252 COMA SCALE, BEST VERBAL RESPONSE, ORIENT 12/27/2019 ANALI BANDA MD, Ot R40.2362 COMA SCALE, BEST MOTOR RESPONSE, OBEYS C 12/27/2019 ANALI BANDA MD Ot S20.211A CONTUSION OF RIGHT FRONT WALL OF THORAX, 12/27/2019 ANALI BANDA MD Ot S40.011A CONTUSION OF RIGHT SHOULDER, INITIAL ENC 12/27/2019 ANALI BANDA MD Ot W10.9XXA FALL (ON) (FROM) UNSPECIFIED STAIRS AND 12/27/2019 ANALI BANDA MD Ot Y92.009 [facility] PL[address] IN [facility] NON-INSTITUT (PRIVATE 12/27/2019 ANALI BANDA MD, Ot Z79.01 ASSISTED (CURRENT) USE OF ANTICOAGULANT 12/27/2019 ANALI BANDA MD, Ot Z79.82 ASSISTED (CURRENT) USE OF ASPIRIN 12/27/2019 SOLO MANSFIELD, ANALI Parkinson Ot Z86.73 PRSNL HX OF TIA (TIA), AND CEREB INFRC W 12/27/2019 SOLO MANSFIELD, ANALI Parkinson Ot Z88.0 ALLERGY STATUS TO PENICILLIN 01/14/2020 FITO MANSFIELD, ELLY R Ot I10 ESSENTIAL (PRIMARY) HYPERTENSION 01/26/2020 FITO MANSFIELD, ELLY R Ot I10 ESSENTIAL (PRIMARY) HYPERTENSION 01/26/2020 FITO MANSFIELD, ELLY R Ot I10 ESSENTIAL (PRIMARY) HYPERTENSION 02/11/2020 FITO MANSFIELD, ELLY R Ot I10 ESSENTIAL (PRIMARY) HYPERTENSION 02/11/2020 FITO MANSFIELD, ELLY R Ot I10 ESSENTIAL (PRIMARY) HYPERTENSION 02/18/2020 FOUZIA MANSFIELD, CAPRI Ot I48.91 UNSPECIFIED ATRIAL FIBRILLATION 02/18/2020 FOUZIA MANSFIELD, CAPRI Ot M25.51 1 PAIN IN RIGHT SHOULDER 02/18/2020 FOUZIA MANSFIELD, CAPRI Ot M48.00 SPINAL STENOSIS, SITE UNSPECIFIED 02/18/2020 FOUZIA MANSFIELD, CAPRI Ot W19.XX XA UNSPECIFIED FALL, INITIAL ENCOUNTER 03/01/2020 FITO MANSFIELD, ELLY R Ot I10 ESSENTIAL (PRIMARY) HYPERTENSION Procedures There is no data. Results Test Result Range Serum or plasma renal function panel (Na , K, Cl, CO2, BUN, Cr, glucose,Ca, phos, alb) - 10/08/16 15:43 Serum or plasma sodium measurement (moles/volume) 139 mmol/L 135-145 Serum or plasma potassium measurement (moles/volume) 3.8 mmol/L 3.6-5.0 Serum or plasma chloride measurement (moles/volume) 102 mmol/L 98-107 Carbon dioxide 29 mmol/L 21-32 Serum or plasma anion gap determination (moles/volume) 8 mmol/L 5-14 Serum or plasma urea nitrogen measurement (mass/volume ) 12 mg/dL 7-18 Serum or plasma creatinine measurement (mass/volume) 0.84 mg/dL 0.60-1.30 Serum or plasma urea nitrogen/creatinine mass ratio 14 NRG Serum or plasma creatinine measurement w ith calculation of estimated glomerular filtration rate > NRG Serum or plasma glucose measurement (mass/volume) 92 mg/dL 70-105 Serum or plasma calcium measurement (mass/volume) 10.3 mg/dL 8.5-10.1 Serum or plasma albumin measurement (mass/volume) 4.2 g/dL 3.2-4.5 Serum or plasma phosphate measurement (mass/volume) 2.4 mg/dL 2.3-4.7 Magnesium - 10/08/16 15:43 Magnesium 1.9 mg/dL 1.8-2.4 Serum or plasma renal function panel (Na , K, Cl, CO2, BUN, Cr, glucose,Ca, phos, alb) - 02/04/17 15:36 Serum or plasma sodium measurement (moles/volume) 139 mmol/L 135-145 Serum or plasma potassium measurement (moles/volume) 3.9 mmol/L 3.6-5.0 Serum or plasma chloride measurement (moles/volume) 100 mmol/L 98-107 Carbon dioxide 30 mmol/L 21-32 Serum or plasma anion gap determination (moles/volume) 9 mmol/L 5-14 Serum or plasma urea nitrogen measurement (mass/volume ) 16 mg/dL 7-18 Serum or plasma creatinine measurement (mass/volume) 1.04 mg/dL 0.60-1.30 Serum or plasma urea nitrogen/creatinine mass ratio 15 NRG Serum or plasma creatinine measurement w ith calculation of estimated glomerular filtration rate 52 NRG Serum or plasma glucose measurement (mass/volume) 109 mg/dL 70-105 Serum or plasma calcium measurement (mass/volume) 10.2 mg/dL 8.5-10.1 Serum or plasma albumin measurement (mass/volume) 4.4 g/dL 3.2-4.5 Serum or plasma phosphate measurement (mass/volume) 2.8 mg/dL 2.3-4.7 Magnesium - 02/04/17 15:36 Magnesium 2.3 mg/dL 1.8-2.4 Complete urinalysis with reflex to cultu re - 03/06/17 17:03 Urine color determination YELLOW NRG Urine clarity determination CLEAR NR G Urine pH measurement by test strip 7 5-9 Specific gravity of urine by test strip 1.005 1.016-1.022 Urine protein assay by test strip, semi-quantitative NEGATIVE NEGATIVE Urine glucose detection by automated test strip NE GATIVE NEGATIVE Erythrocytes detection in urine sediment by light micr oscopy NEGATIVE NEGATIVE Urine ketones detection by automated test strip NE GATIVE NEGATIVE Urine nitrite detection by test strip NEGATIVE NEGATIVE Urine total bilirubin detection by test strip NEGA TIVE NEGATIVE Urine urobilinogen measurement by automated test strip (mass/volume) NORMAL NORMAL Urine leukocyte esterase detection by dipstick NEG ATIVE NEGATIVE Automated urine sediment erythrocyte cou nt by microscopy (number/high power field) NONE NRG Automated urine sediment leukocyte count by microscopy (number/high power field) RARE NRG Bacteria detection in urine sediment by light microsco py MODERATE NRG Squamous epithelial cells detection in u rine sediment by light microscopy 5-10 NRG Crystals detection in urine sediment by light microsco py NONE NRG Casts detection in urine sediment by light microscopy NONE NRG Mucus detection in urine sediment by light microscopy NEGATIVE NRG Complete urinalysis with reflex to culture NO NRG Complete blood count (CBC) with automate d white blood cell (WBC) differential - 03/06/17 17:42 Blood leukocytes automated count (number/volume) 5.8 10*3/uL 4.3-11.0 Blood erythrocytes automated count (number/volume) 3.85 10*6/uL 4.35-5.85 Venous blood hemoglobin measurement (mass/volume) 11.8 g/dL 11.5-16.0 Blood hematocrit (volume fraction) 35 % 35-52 Automated erythrocyte mean corpuscular volume 90 [ foz_us] 80-99 Automated erythrocyte mean corpuscular h emoglobin (mass per erythrocyte) 31 pg 25-34 Automated erythrocyte mean corpuscular h emoglobin concentration measurement (mass/volume) 34 g/dL 32-36 Automated erythrocyte distribution width ratio 12. 3 % 10.0- 14.5 Automated blood platelet count (count/volume) 145 10*3/uL 130-400 Automated blood platelet mean volume measurement 10.4 [foz_us] 7.4-10.4 Automated blood neutrophils/100 leukocytes 52 % 42-75 Automated blood lymphocytes/100 leukocytes 30 % 12-44 Blood monocytes/100 leukocytes 14 % 0-12 Automated blood eosinophils/100 leukocytes 4 % 0-10 Automated blood basophils/100 leukocytes 1 % 0-10 Blood neutrophils automated count (number/volume) 3.0 10*3 1.8-7.8 Blood lymphocytes automated count (number/volume) 1.7 10*3 1.0-4.0 Blood monocytes automated count (number/volume) 0. 8 10*3 0.0-1.0 Automated eosinophil count 0.3 10*3/uL 0 .0-0.3 Automated blood basophil count (count/volume) 0.0 10*3/uL 0.0-0.1 Comprehensive metabolic panel - 03/06/17 17:42 Serum or plasma sodium measurement (moles/volume) 137 mmol/L 135-145 Serum or plasma potassium measurement (moles/volume) 4.0 mmol/L 3.6-5.0 Serum or plasma chloride measurement (moles/volume) 99 mmol/L 98-107 Carbon dioxide 31 mmol/L 21-32 Serum or plasma anion gap determination (moles/volume) 7 mmol/L 5-14 Serum or plasma urea nitrogen measurement (mass/volume ) 18 mg/dL 7-18 Serum or plasma creatinine measurement (mass/volume) 1.14 mg/dL 0.60-1.30 Serum or plasma urea nitrogen/creatinine mass ratio 16 NRG Serum or plasma creatinine measurement w ith calculation of estimated glomerular filtration rate 47 NRG Serum or plasma glucose measurement (mass/volume) 87 mg/dL 70-105 Serum or plasma calcium measurement (mass/volume) 9.9 mg/dL 8.5-10.1 Serum or plasma total bilirubin measurement (mass/volu me) 0.8 mg/dL 0.1-1.0 Serum or plasma alkaline phosphatase sindi surement (enzymatic activity/volume) 78 U/L 40-136 Serum or plasma aspartate aminotransfera se measurement (enzymatic activity/volume) 22 U/L 5-34 Serum or plasma alanine aminotransferase measurement (enzymatic activity/volume) 18 U/L 0-55 Serum or plasma protein measurement (mass/volume) 6.6 g/dL 6.4-8.2 Serum or plasma albumin measurement (mass/volume) 4.0 g/dL 3.2-4.5 PT panel in platelet poor plasma by coag ulation assay - 03/06/17 17:42 Prothrombin time (PT) in platelet poor plasma by coagu lation assay 16.5 s 12.2-14.7 INR in platelet poor plasma or blood by coagulation as say 1.4 0.8-1.4 Activated partial thromboplastin time (a PTT) in platelet poor plasma bycoagulation assay - 03/06/17 17:42 Activated partial thromboplastin time (a PTT) in platelet poor plasma bycoagulation assay 41 s 24-35 Serum or plasma renal function panel (Na , K, Cl, CO2, BUN, Cr, glucose,Ca, phos, alb) - 09/03/18 14:43 Serum or plasma sodium measurement (moles/volume) 139 mmol/L 135-145 Serum or plasma potassium measurement (moles/volume) 4.3 mmol/L 3.6-5.0 Serum or plasma chloride measurement (moles/volume) 103 mmol/L 98-107 Carbon dioxide 26 mmol/L 21-32 Serum or plasma anion gap determination (moles/volume) 10 mmol/L 5-14 Serum or plasma urea nitrogen measurement (mass/volume ) 10 mg/dL 7-18 Serum or plasma creatinine measurement (mass/volume) 0.99 mg/dL 0.60-1.30 Serum or plasma urea nitrogen/creatinine mass ratio 10 NRG Serum or plasma creatinine measurement w ith calculation of estimated glomerular filtration rate 55 NRG Serum or plasma glucose measurement (mass/volume) 127 mg/dL 70-105 Serum or plasma calcium measurement (mass/volume) 10.2 mg/dL 8.5-10.1 Serum or plasma albumin measurement (mass/volume) 4.3 g/dL 3.2-4.5 Serum or plasma phosphate measurement (mass/volume) 2.7 mg/dL 2.3-4.7 Magnesium - 09/03/18 14:43 Magnesium 1.9 mg/dL 1.8-2.4 Complete blood count (CBC) with automate d white blood cell (WBC) differential - 01/27/19 15:13 Blood leukocytes automated count (number/volume) 6.2 10*3/uL 4.3-11.0 Blood erythrocytes automated count (number/volume) 4.22 10*6/uL 4.35-5.85 Venous blood hemoglobin measurement (mass/volume) 12.5 g/dL 11.5-16.0 Blood hematocrit (volume fraction) 37 % 35-52 Automated erythrocyte mean corpuscular volume 88 [ foz_us] 80-99 Automated erythrocyte mean corpuscular h emoglobin (mass per erythrocyte) 30 pg 25-34 Automated erythrocyte mean corpuscular h emoglobin concentration measurement (mass/volume) 34 g/dL 32-36 Automated erythrocyte distribution width ratio 12. 9 % 10.0- 14.5 Automated blood platelet count (count/volume) 180 10*3/uL 130-400 Automated blood platelet mean volume measurement 9.8 [foz_us] 7.4-10.4 Automated blood neutrophils/100 leukocytes 75 % 42-75 Automated blood lymphocytes/100 leukocytes 16 % 12-44 Blood monocytes/100 leukocytes 8 % 0-12 Automated blood eosinophils/100 leukocytes 1 % 0-10 Automated blood basophils/100 leukocytes 1 % 0-10 Blood neutrophils automated count (number/volume) 4.6 10*3 1.8-7.8 Blood lymphocytes automated count (number/volume) 1.0 10*3 1.0-4.0 Blood monocytes automated count (number/volume) 0. 5 10*3 0.0-1.0 Automated eosinophil count 0.1 10*3/uL 0 .0-0.3 Automated blood basophil count (count/volume) 0.0 10*3/uL 0.0-0.1 Comprehensive metabolic panel - 01/27/19 15:13 Serum or plasma sodium measurement (moles/volume) 140 mmol/L 135-145 Serum or plasma potassium measurement (moles/volume) 4.4 mmol/L 3.6-5.0 Serum or plasma chloride measurement (moles/volume) 103 mmol/L 98-107 Carbon dioxide 29 mmol/L 21-32 Serum or plasma anion gap determination (moles/volume) 8 mmol/L 5-14 Serum or plasma urea nitrogen measurement (mass/volume ) 16 mg/dL 7-18 Serum or plasma creatinine measurement (mass/volume) 1.24 mg/dL 0.60-1.30 Serum or plasma urea nitrogen/creatinine mass ratio 13 NRG Serum or plasma creatinine measurement w ith calculation of estimated glomerular filtration rate 42 NRG Serum or plasma glucose measurement (mass/volume) 109 mg/dL 70-105 Serum or plasma calcium measurement (mass/volume) 11.3 mg/dL 8.5-10.1 Serum or plasma total bilirubin measurement (mass/volu me) 0.5 mg/dL 0.1-1.0 Serum or plasma alkaline phosphatase sindi surement (enzymatic activity/volume) 67 U/L 40-136 Serum or plasma aspartate aminotransfera se measurement (enzymatic activity/volume) 23 U/L 5-34 Serum or plasma alanine aminotransferase measurement (enzymatic activity/volume) 19 U/L 0-55 Serum or plasma protein measurement (mass/volume) 7.7 g/dL 6.4-8.2 Serum or plasma albumin measurement (mass/volume) 4.6 g/dL 3.2-4.5 Magnesium - 01/27/19 15:13 Magnesium 2.0 mg/dL 1.8-2.4 Lipid 1996 panel - 01/27/19 15:13 Serum or plasma triglyceride measurement (mass/volume) 142 mg/dL <150 Serum or plasma cholesterol measurement (mass/volume) 136 mg/dL < 200 Serum or plasma cholesterol in HDL measurement (mass/v olume) 44 mg/dL 40-60 Cholesterol in LDL [mass/volume] in serum or plasma by direct assay 69 mg/dL 1-129 Serum or plasma cholesterol in VLDL measurement (mass/ volume) 28 mg/dL 5-40 THYROID STIMULATING HORMONE - 01/27/19 1 5:13 THYROID STIMULATING HORMONE 0.57 u[iU]/mL 0.35-4.94 Serum or plasma thyroxine (T4) free chiqui urement (mass/volume) - 01/27/19 15:13 Serum or plasma thyroxine (T4) free measurement (mass/ volume) 0.83 ng/dL 0.70-1.48 DIGOXIN - 01/27/19 15:13 DIGOXIN 0.58 ng/mL 0.80-2.00 CMP - 02/26/19 12:41 GLUCOSE 103 mg/dL 65-99 UREA NITROGEN (BUN) 21 mg/dL 7-25 CREATININE 1.15 mg/dL 0.60-0.93 eGFR NON-AFR. STATELESS 47 mL/min/1.73m2 > OR = 60 eGFR 55 mL/min/1.73m2 > OR = 60 BUN/CREATININE RATIO 18 (calc) 6-22 SODIUM 135 mmol/L 135-146 POTASSIUM 4.7 mmol/L 3.5-5.3 CHLORIDE 102 mmol/L 98-110 CARBON DIOXIDE 26 mmol/L 20-32 CALCIUM 9.1 mg/dL 8.6-10.4 PROTEIN, TOTAL 6.2 g/dL 6.1-8.1 ALBUMIN 4.1 g/dL 3.6-5.1 GLOBULIN 2.1 g/dL (calc) 1.9-3.7 ALBUMIN/GLOBULIN RATIO 2.0 (calc) 1.0-2. 5 BILIRUBIN, TOTAL 0.4 mg/dL 0.2-1.2 ALKALINE PHOSPHATASE 79 U/L 33-130 AST 20 U/L 10-35 ALT 16 U/L 6-29 DIGOXIN - 02/26/19 12:41 DIGOXIN 0.6 mcg/L 0.8-2.0 A1C - 02/26/19 12:41 HEMOGLOBIN A1c 5.9 % of total Hgb <5.7 DIGOXIN - 07/06/19 10:21 DIGOXIN 0.7 mcg/L 0.8-2.0 A1C - 07/06/19 10:21 HEMOGLOBIN A1c 6.2 % of total Hgb <5.7 Serum or plasma renal function panel (Na , K, Cl, CO2, BUN, Cr, glucose,Ca, phos, alb) - 12/23/19 16:00 Serum or plasma sodium measurement (moles/volume) 138 mmol/L 135-145 Serum or plasma potassium measurement (moles/volume) 4.4 mmol/L 3.6-5.0 Serum or plasma chloride measurement (moles/volume) 101 mmol/L 98-107 Carbon dioxide 25 mmol/L 21-32 Serum or plasma anion gap determination (moles/volume) 12 mmol/L 5-14 Serum or plasma urea nitrogen measurement (mass/volume ) 16 mg/dL 7-18 Serum or plasma creatinine measurement (mass/volume) 1.31 mg/dL 0.60-1.30 Serum or plasma urea nitrogen/creatinine mass ratio 12 NRG Serum or plasma creatinine measurement w ith calculation of estimated glomerular filtration rate 40 NRG Serum or plasma glucose measurement (mass/volume) 120 mg/dL 70-105 Serum or plasma calcium measurement (mass/volume) 10.3 mg/dL 8.5-10.1 Serum or plasma albumin measurement (mass/volume) 4.6 g/dL 3.2-4.5 Serum or plasma phosphate measurement (mass/volume) 3.6 mg/dL 2.3-4.7 Magnesium - 12/23/19 16:00 Magnesium 2.2 mg/dL 1.6-2.4 Complete urinalysis with reflex to cultu re - 12/24/19 00:30 Urine color determination YELLOW NRG Urine clarity determination CLEAR NR G Urine pH measurement by test strip 7.0 5-9 Specific gravity of urine by test strip <= 1.016-1.022 Urine protein assay by test strip, semi-quantitative NEGATIVE NEGATIVE Urine glucose detection by automated test strip NE GATIVE NEGATIVE Erythrocytes detection in urine sediment by light micr oscopy NEGATIVE NEGATIVE Urine ketones detection by automated test strip NE GATIVE NEGATIVE Urine nitrite detection by test strip NEGATIVE NEGATIVE Urine total bilirubin detection by test strip NEGA TIVE NEGATIVE Urine urobilinogen measurement by automated test strip (mass/volume) 0.2 mg/dL < = 1.0 Urine leukocyte esterase detection by dipstick NEG ATIVE NEGATIVE Automated urine sediment erythrocyte cou nt by microscopy (number/high power field) RARE NRG Automated urine sediment leukocyte count by microscopy (number/high power field) NONE NRG Bacteria detection in urine sediment by light microsco py TRACE NRG Squamous epithelial cells detection in u rine sediment by light microscopy RARE NRG Crystals detection in urine sediment by light microsco py NONE NRG Casts detection in urine sediment by light microscopy NONE NRG Mucus detection in urine sediment by light microscopy NEGATIVE NRG Complete urinalysis with reflex to culture NO NRG Serum or plasma renal function panel (Na , K, Cl, CO2, BUN, Cr, glucose,Ca, phos, alb) - 01/25/20 16:15 Serum or plasma sodium measurement (moles/volume) 132 mmol/L 135-145 Serum or plasma potassium measurement (moles/volume) 5.1 mmol/L 3.6-5.0 Serum or plasma chloride measurement (moles/volume) 99 mmol/L 98-107 Carbon dioxide 25 mmol/L 21-32 Serum or plasma anion gap determination (moles/volume) 8 mmol/L 5-14 Serum or plasma urea nitrogen measurement (mass/volume ) 19 mg/dL 7-18 Serum or plasma creatinine measurement (mass/volume) 1.18 mg/dL 0.60-1.30 Serum or plasma urea nitrogen/creatinine mass ratio 16 NRG Serum or plasma creatinine measurement w ith calculation of estimated glomerular filtration rate 45 NRG Serum or plasma glucose measurement (mass/volume) 112 mg/dL 70-105 Serum or plasma calcium measurement (mass/volume) 10.4 mg/dL 8.5-10.1 Serum or plasma albumin measurement (mass/volume) 4.5 g/dL 3.2-4.5 Serum or plasma phosphate measurement (mass/volume) 3.5 mg/dL 2.3-4.7 DIFFERENTIAL, MANUAL - 01/31/20 13:15 ABSOLUTE NEUTROPHILS 4308 cells/uL 1500- 7800 ABSOLUTE MONOCYTES 468 cells/uL 200-950 ABSOLUTE EOSINOPHILS 294 cells/uL 15-500 ABSOLUTE BASOPHILS 0 cells/uL 0-200 NEUTROPHILS 71.8 % NRG LYMPHOCYTES 15.5 % NRG MONOCYTES 7.8 % NRG EOSINOPHILS 4.9 % NRG BASOPHILS 0 % NRG ABSOLUTE LYMPHOCYTES 930 cells/uL 850-39 00 PLATELET ESTIMATION ADEQUATE ADEQUATE Serum or plasma renal function panel (Na , K, Cl, CO2, BUN, Cr, glucose,Ca, phos, alb) - 02/08/20 15:19 Serum or plasma sodium measurement (moles/volume) 134 mmol/L 135-145 Serum or plasma potassium measurement (moles/volume) 4.9 mmol/L 3.6-5.0 Serum or plasma chloride measurement (moles/volume) 100 mmol/L 98-107 Carbon dioxide 28 mmol/L 21-32 Serum or plasma anion gap determination (moles/volume) 6 mmol/L 5-14 Serum or plasma urea nitrogen measurement (mass/volume ) 16 mg/dL 7-18 Serum or plasma creatinine measurement (mass/volume) 1.11 mg/dL 0.60-1.30 Serum or plasma urea nitrogen/creatinine mass ratio 14 NRG Serum or plasma creatinine measurement w ith calculation of estimated glomerular filtration rate 48 NRG Serum or plasma glucose measurement (mass/volume) 94 mg/dL 70-105 Serum or plasma calcium measurement (mass/volume) 10.3 mg/dL 8.5-10.1 Serum or plasma albumin measurement (mass/volume) 4.4 g/dL 3.2-4.5 Serum or plasma phosphate measurement (mass/volume) 3.3 mg/dL 2.3-4.7 Encounters ACCT No. Visit Date/Time Discharge Status Pt. Type Provider Facility Loc./Unit Complaint [id number] 03/10/2020 16:00:00 [id number] 01/31/2020 13:40:00 Document Registration [id number] 07/06/2019 09:45:00 Document Registration [id number] 02/26/2019 12:20:00 Document Registration [id number] 03/02/2020 10:33:00 020 23:59:59 [id number] 02/08/2020 15:00:00 23:59:59 CLS Outpatient FITO MANSFIELD, ELLY Rai [facility] HYPERTENSION [id number] 01/25/2020 15:59:00 23:59:59 CLS Outpatient ELLY PAYTON MD [facility] LAB HYPERTENSION [id number] 12/23/2019 23:35:00 01:11:00 DIS Emergency SOLO MANSFIELD, ANALI Parkinson [facility] ER FALL [id number] 12/23/2019 15:49:00 23:59:59 CLS Outpatient FITO MANSFIELD, ELLY Rai [facility] LAB HYPERTENSION [id number] 07/02/2019 15:42:00 20:24:00 DIS Emergency DUNIA SIERRA APRN [facility] ER ABNORMAL CHEST XR,COUGH [id number] 07/01/2019 15:30:00 23:59:59 CLS Outpatient ELLY PAYTON MD [facility] RAD COUGH [id number] 01/27/2019 15:01:00 23:59:59 CLS Outpatient ELLY PAYTON MD [facility] LAB E78.00,I48.0 [id number] 09/03/2018 14:20:00 23:59:59 CLS Outpatient ELLY PAYTON MD [facility] LAB HYPERTENSION [id number] 03/06/2017 15:38:00 18:26:00 DIS Emergency NEAL WEISS [facility] ER PT FELL/FACIAL BRUISING /BODY PAIN [id number] 02/04/2017 15:24:00 23:59:59 CLS Outpatient ELLY PAYTON MD [facility] LAB I10 [id number] 10/08/2016 15:32:00 017 23:59:59 CLS Outpatient ELLY PAYTON MD [facility] LAB HYPERTENSION [id number] 04/12/2016 10:00:00 23:59:59 CLS Preadmit ELLY PAYTON MD [facility] CR MVREPAIR [id number] 04/08/2016 11:37:00 00:01:00 DIS Outpatient ELLY PAYTON MD [facility] CR MVREPAIR [id number] 02/09/2016 11:03:00 23:59:59 CLS Outpatient ELLY PAYTON MD [facility] LAB HYPERTENSION [id number] 01/15/2016 10:57:00 23:59:59 CLS Outpatient ELLY PAYTON MD [facility] LAB CARDIOMYOPATHY ,ATRIAL FIB,MITRAL VALVE REPAIR,HTN [id number] 01/03/2016 11:50:00 00:01:00 DIS Outpatient ELLY PAYTON MD [facility] CR MVREPAIR [id number] 06/20/2015 22:48:00 015 14:23:00 DIS Inpatient Janes CLEMENTS MD [facility] CSD NEW ONSET AFIB [id number] 01/09/2012 11:09:00 Document Registration
[2020-03-11] MEDS ORDERED: LACTATED RINGERS 1,000 ML IV ONE (23:24)
[2020-03-11] MEDS ORDERED: HYOSCYAMINE 0.125 MG (LEVSIN) TAB SL ONE (23:30)
[2020-03-11] MEDS ORDERED: FAMOTIDINE 20MG/2ML IV (PEPCID) IVP ONE (23:30)
[2020-03-11] MEDS ORDERED: ONDANSETRON 4 MG/2 ML (SDV) Z0FRAN IVP ONE (23:30)
[2020-03-11 23:45] LABS: BASOPHILS % (AUTO) 0 % (0-10); EOSINOPHILS # (AUTO) 0.3 10^3/uL (0.0-0.3); EOSINOPHILS % (AUTO) 2 % (0-10); HEMATOCRIT 45 % (35-52); HEMOGLOBIN 15.9 G/DL (11.5-16.0); LYMPHOCYTES # (AUTO) 1.3 X 10^3 (1.0-4.0); LYMPHOCYTES % (AUTO) 8 % (12-44); MEAN CORPUSCULAR HEMOGLOBIN 31 PG (25-34); MEAN CORPUSCULAR HGB CONC 36 G/DL (32-36); MEAN CORPUSCULAR VOLUME 87 FL (80-99); MEAN PLATELET VOLUME 10.2 FL (7.4-10.4); MONOCYTES # (AUTO) 1.3 X 10^3 (0.0-1.0); MONOCYTES % (AUTO) 8 % (0-12); NEUTROPHILS # (AUTO) 13.9 X 10^3 (1.8-7.8); NEUTROPHILS % (AUTO) 83 % (42-75); PLATELET COUNT 208 10^3/uL (130-400); RED CELL DISTRIBUTION WIDTH 12.8 % (10.0-14.5); WHITE BLOOD COUNT 16.8 10^3/uL (4.3-11.0)
[2020-03-11 23:56] LABS: CALCIUM 9.9 MG/DL (8.5-10.1)
[2020-03-11 23:57] LABS: TOTAL PROTEIN 6.8 GM/DL (6.4-8.2)
[2020-03-11 23:59] LABS: BILIRUBIN,TOTAL 0.7 MG/DL (0.1-1.0)
[2020-03-12] VITALS (18 sets, daily range): BP systolic 114–138; BP diastolic 64–90
[2020-03-12] LABS: CREATININE SERUM 1.34 MG/DL (0.60-1.30)
[2020-03-12 00:03] LABS: MAGNESIUM 1.5 MG/DL (1.6-2.4)
[2020-03-12 00:04] LABS: INR 1.2 (0.8-1.4); PROTHROMBIN TIME PATIENT 15.6 SEC (12.2-14.7)
[2020-03-12 00:11] LABS: BAND NEUTROPHILS 11 %; EOSINOPHILS % (MANUAL) 3 %; LYMPHOCYTES % (MANUAL) 7 %; MONOCYTES % (MANUAL) 4 %; NEUTROPHILS % (MANUAL) 75 %; RBC MORPH NORMAL
[2020-03-12] MEDS ORDERED: NITROGLYCERIN 0.4 MG SL TABS BTL 25'S SL ONE (00:26)
[2020-03-12] MEDS ORDERED: ASPIRIN 81 MG CHEW (CHILDREN'S ASA) ONE (00:26)
[2020-03-12] MEDS ORDERED: NITROGLYCERIN 0.4 MG SL TABS BTL 25'S SL PRN ×2 (00:30→04:15)
[2020-03-12] MEDS ORDERED: ASPIRIN 81 MG CHEW (CHILDREN'S ASA) PO ONE (00:30)
--- NOTE | 2020-03-12 01:05 | NUR ---
COVID-19 SWAB COLLECTED AND SENT WITH [facility] PAPERWORK TO LAB. COPY OF PAPERWORK SENT TO [facility].
[2020-03-12 01:19] LABS: BILIRUBIN,URINE NEGATIVE (NEGATIVE); CLARITY,URINE CLEAR; COLOR,URINE YELLOW; GLUCOSE, URINE (UA) NEGATIVE (NEGATIVE); KETONES,URINE NEGATIVE (NEGATIVE); LEUKOCYTE ESTERASE ,URINE NEGATIVE (NEGATIVE); NITRITE,URINE NEGATIVE (NEGATIVE); PH,URINE 5.5 (5-9); PROTEIN,URINE NEGATIVE (NEGATIVE)
[2020-03-12 01:26] LABS: BACTERIA,URINE NEGATIVE /HPF; HYALINE CASTS, URINE 0-2 /LPF
[2020-03-12] MEDS ORDERED: DIPHENOXYLATE/ATROPINE 2.5MG/0.025MG (LOMOTIL) TAB PO ONE (03:00)
[2020-03-12] MEDS ORDERED: ENOXAPARIN 80 MG/0.8 ML (LOVENOX) SYR SC ONE (03:00)
--- NOTE | 2020-03-12 03:45 | NUR ---
PT TO REMAIN IN ER UNTIL LE[facility]ING DESIGN SPECIALIST AVAILABLE SAME LEARNING DESIGN SPECIALIST IS ADMITTING 2 ER PTS BACK TO BACK.
--- NOTE | 2020-03-12 03:56 | ED Chest Pain ---
General Chief Complaint: Abdominal/GI Problems Stated Complaint: CHEST PAIN,ELEVATED TROPONIN,GASTENTERITIS Nursing Triage Note: TO ED ROOM 6 [facility]IA [facility] AND PLACED ON COVID-19 PUI PRECAUTIONS PRESENTS WITH CP, ABD PAIN, N/V/D. Nursing Sepsis Screen: Possible Severe Sepsis Risk Source: patient, EMS Exam Limitations: no limitations History of Present Illness Date Seen by Provider: Mar 11, 2020 Time Seen by Provider: 23:09 Initial Comments This 74-year-old woman presents to the emergency room via EMS after a few days of diarrhea and vomiting. During the course of the interview she reports intermittent chest pain recently. She denies having pain at this time. She presumes pain to be related to vomiting or acid reflux. She feels like she is now getting weak and the diarrhea persists. She therefore wanted to be evaluated in the emergency room. Allergies and Home Medications Allergies Coded Allergies: Penicillins (Unverified Allergy, Unknown, 06/20/15) Home Medications Apixaban 5 Mg Tablet, 5 MG PO BID Prescribed by: MONTY FRANKLIN on 06/22/15 142 Aspirin 81 Mg Tab.chew, 81 MG PO DAILY, (Reported) B Complex with Vitamin C 1 Each Tablet.er, 1 TAB PO DAILY, (Reported) Bupropion HCl 300 Mg Tab.er.24h, 300 MG PO DAILY, (Reported) Calcium Carb & Citrate/Vit D3 1 Each Tablet.er, 2 TAB PO DAILY, (Reported) Docusate Sodium 100 Mg Capsule, 300 MG PO DAILY, (Reported) Doxycycline Hyclate 100 Mg Tablet, 100 MG PO BID Prescribed by: DUNIA SIERRA on 07/02/191947 Escitalopram Oxalate 20 Mg Tablet, 20 MG PO HS, (Reported) Furosemide 20 Mg Tablet, 20 MG PO DAILY Prescribed by: MONTY FRANKLIN on 06/22/15 1429 Gabapentin 100 Mg Capsule, 100 MG PO TID, (Reported) Lisinopril/Hydrochlorothiazide 1 Each Tablet, 1 TAB PO DAILY, (Reported) Lorazepam 0.5 Mg Tablet, 0.5 MG PO Q8H PRN for PRN, (Reported) Melatonin 5 Mg Tablet, 5 MG PO HS, (Reported) Meloxicam 15 Mg Tablet, 15 MG PO DAILY, (Reported) Metoprolol Tartrate 100 Mg Tablet, 100 MG PO BID Prescribed by: MONTY FRANKLIN on 06/22/15 1435 Multivitamin 1 Each Tablet, 1 TAB PO DAILY, (Reported) Oxycodone HCl/Acetaminophen 1 Each Tablet, 1 TAB PO Q4H PRN for PRN, (Reported) Potassium Chloride 10 Meq Capsule.er, 10 MEQ PO BID, (Reported) Rosuvastatin Calcium 10 Mg Tablet, 10 MG PO HS, (Reported) Patient Home Medication List Home Medication List Reviewed: Yes Review of Systems Review of Systems Constitutional: weakness EENTM: No Symptoms Reported Respiratory: No Symptoms Reported Cardiovascular: See HPI Gastrointestinal: See HPI Genitourinary: No Symptoms Reported Musculoskeletal: no symptoms reported Skin: no symptoms reported Psychiatric/Neurological: No Symptoms Reported Endocrine: No Symptoms Reported Hematologic/Lymphatic: No Symptoms Reported Past Bciqggy-Wsybdh-Suhacx Hx Past Med/Social Hx: Reviewed Nursing Past Med/Soc Hx Patient Social History Alcohol Use: Denies Use Recreational Drug Use: No Smoking Status: Never a Smoker Type Used: Cigarettes 2nd Hand Smoke Exposure: No Recent Foreign Travel: No Contact w/Someone Who Travel: No Recent Infectious Disease Expo: No Recent Hopitalizations: No Physical Abuse: No Sexual Abuse: No Mistreated: No Fear: No Immunizations Up To Date Tetanus Booster (TDap): Less than 5yrs PED Vaccines UTD: No Date of Pneumonia Vaccine: Sep 01, 2012 Date of Influenza Vaccine: Jun 13, 2015 Seasonal Allergies Seasonal Allergies: No Past Medical History Surgeries: Yes (implanted nerve stimulator, MITRAL AND TRICUSPID VALVE REPAIRS) Cardiac, Hysterectomy, Tonsillectomy Respiratory: No Currently Using CPAP: No Currently Using BIPAP: No Cardiac: Yes High Cholesterol, Hypertension, Valvular Heart Disease Neurological: Yes (spinal stenosis) Stroke Reproductive Disorders: No Female 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 Sexually Transmitted Disease: No HIV/AIDS: No Genitourinary: No Gastrointestinal: Yes Irritable Bowel Musculoskeletal: Yes (SPINAL STENOSIS- STIMULATOR IN BACK) Endocrine: No HEENT: No Loss of Vision: Denies Hearing Impairment: Hard of Hearing Cancer: No Psychosocial: Yes Anxiety, Depression Integumentary: No Blood Disorders: No Adverse Reaction/Blood Tranf: No Family Medical History No Pertinent Family Hx, Stroke Physical Exam Vital Signs Vital Signs - First Documented 03/11/20 23:08 Temp 36.5 Pulse 111 Resp 22 B/P (MAP) 178/103 (128) O2 Delivery Room Air Capillary Refill : Less Than 3 Seconds Height, Weight, BMI Height: 5'7.00" Weight: 162lbs. 7.0oz. 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 Skin: Normal Color, Warm/Dry Progress/Results/Core Measures Results/Orders Lab Results Laboratory Tests Test 03/11/20 23:35 03/12/20 01:05 Range/Units White Blood Count 16.8 H 4.3-11.0 10^3/uL Red Blood Count 5.14 4.35-5.85 10^6/uL Hemoglobin 15.9 11.5-16.0 G/DL Hematocrit 45 35-52 % Mean Corpuscular Volume 87 80-99 FL Mean Corpuscular Hemoglobin 31 25-34 PG Mean Corpuscular Hemoglobin Concent 36 32-36 G/DL Red Cell Distribution Width 12.8 10.0-14.5 % Platelet Count 208 130-400 10^3/uL Mean Platelet Volume 10.2 7.4-10.4 FL Neutrophils (%) (Auto) 83 H 42-75 % Lymphocytes (%) (Auto) 8 L 12-44 % Monocytes (%) (Auto) 8 0-12 % Eosinophils (%) (Auto) 2 0-10 % Basophils (%) (Auto) 0 0-10 % Neutrophils # (Auto) 13.9 H 1.8-7.8 X 10^3 Lymphocytes # (Auto) 1.3 1.0-4.0 X 10^3 Monocytes # (Auto) 1.3 H 0.0-1.0 X 10^3 Eosinophils # (Auto) 0.3 0.0-0.3 10^3/uL Basophils # (Auto) 0.0 0.0-0.1 10^3/uL Neutrophils % (Manual) 75 % Lymphocytes % (Manual) 7 % Monocytes % (Manual) 4 % Eosinophils % (Manual) 3 % Band Neutrophils 11 % Blood Morphology Comment NORMAL Prothrombin Time 15.6 H 12.2-14.7 SEC INR Comment 1.2 0.8-1.4 Activated Partial Thromboplast Time 38 H 24-35 SEC Sodium Level 130 L 135-145 MMOL/L Potassium Level 4.0 3.6-5.0 MMOL/L Chloride Level 96 L 98-107 MMOL/L Carbon Dioxide Level 18 L 21-32 MMOL/L Anion Gap 16 H 5-14 MMOL/L Blood Urea Nitrogen 26 H 7-18 MG/DL Creatinine 1.34 H 0.60-1.30 MG/DL Estimat Glomerular Filtration Rate 39 BUN/Creatinine Ratio 19 Glucose Level 130 H 70-105 MG/DL Calcium Level 9.9 8.5-10.1 MG/DL Corrected Calcium 9.9 8.5-10.1 MG/DL Magnesium Level 1.5 L 1.6-2.4 MG/DL Total Bilirubin 0.7 0.1-1.0 MG/DL Aspartate Amino Transf (AST/SGOT) 19 5-34 U/L Alanine Aminotransferase (ALT/SGPT) 20 0-55 U/L Alkaline Phosphatase 70 40-136 U/L Myoglobin 81.6 10.0-92.0 NG/ML Troponin I 0.044 H <0.028 NG/ML C-Reactive Protein High Sensitivity 2.86 H 0.00-0.50 MG/DL Total Protein 6.8 6.4-8.2 GM/DL Albumin 4.0 3.2-4.5 GM/DL Lipase 17 8-78 U/L Urine Color YELLOW Urine Clarity CLEAR Urine pH 5.5 5-9 Urine Specific Melvin 1.010 L 1.016-1.022 Urine Protein NEGATIVE NEGATIVE Urine Glucose (UA) NEGATIVE NEGATIVE Urine Ketones NEGATIVE NEGATIVE Urine Nitrite NEGATIVE NEGATIVE Urine Bilirubin NEGATIVE NEGATIVE Urine Urobilinogen 0.2 < = 1.0 MG/DL Urine Leukocyte Esterase NEGATIVE NEGATIVE Urine RBC (Auto) NEGATIVE NEGATIVE Urine RBC NONE /HPF Urine WBC NONE /HPF Urine Squamous Epithelial Cells 2-5 /HPF Urine Crystals NONE /LPF Urine Bacteria NEGATIVE /HPF Urine Casts PRESENT /LPF Urine Hyaline Casts 0-2 H /LPF Urine Mucus NEGATIVE /LPF Urine Culture Indicated NO My Orders Orders - ARMANI RENDON MD Cbc With Automated Diff (03/11/20 23:22) Magnesium (03/11/20 23:22) Ekg Tracing (03/11/20:) Comprehensive Metabolic Panel (03/11/20:) Myoglobin Serum (03/11/20:) Protime With Inr (03/11/20:) Partial Thromboplastin Time (03/11/20:) O2 (03/11/20:) Monitor-Rhythm Ecg Trace Only (03/11/20:) Lipid Panel (03/12/20 06:00) Ed Iv/Invasive Line Start (03/11/20:) Troponin I (03/11/20:) Ondansetron Injection (Zofran Injectio (03/11/20 23:30) Famotidine Injection (Pepcid Injection) (03/11/20 23:30) Hyoscyamine Sl Tablet (Levsin Sl Tablet) (03/11/20 23:30) Lactated Ringers (Lr 1000 Ml Iv Solution (03/11/20 23:24) Hs C Reactive Protein (03/11/20 23:24) Lipase (03/11/20 23:24) Ekg Tracing (03/12/20 01:30) Manual Differential (03/11/20 23:35) Nitroglycerin 0.4 Mg Btl 25's (Nitrostat (03/12/20 00:30) Aspirin Chewable Tablet (Baby Aspirin Ch (03/12/20 00:30) Nitroglycerin 0.4 Mg Btl 25's (Nitrostat (03/12/20 00:26) Aspirin Chewable Tablet (Baby Aspirin Ch (03/12/20 00:26) Ct Chest/Abdomen/Pelvis Wo (03/12/20 00:45) Chest 1 View, Ap/Pa Only (03/12/20 00:53) Schroeder Cath (03/12/20 01:11) Ua Culture If Indicated (03/12/20 01:11) Coronavirus Sars-Cov-2 So 2018 (03/12/20 01:11) Diphenoxylate/Atropine Tablet (Lomotil T (03/12/20 03:00) Enoxaparin Injection (Lovenox Injection) (03/12/20 03:00) Troponin I (03/12/20 03:30) Medications Given in ED Current Medications Medications Dose Ordered Sig/[place]esh Route Start Time Stop Time Status Last Admin Dose Admin Aspirin 324 mg ONCE ONCE PO 03/12/20 00:30 03/12/20 00:31 DC 03/12/20 00:57 324 MG Diphenoxylate HCl/ Atropine 1 ea ONCE ONCE PO 03/12/20 03:00 03/12/20 03:01 DC 03/12/20 04:24 1 EA Enoxaparin Sodium 70 mg ONCE ONCE SC 03/12/20 03:00 03/12/20 03:01 DC 03/12/20 04:25 70 MG Famotidine 20 mg ONCE ONCE IVP 03/11/20 23:30 03/11/20 23:31 DC 03/11/20 23:35 20 MG Hyoscyamine Sulfate 0.125 mg ONCE ONCE SL 03/11/20 23:30 03/11/20 23:31 DC 03/11/20 23:35 0.125 MG Lactated Ringer's 1,000 ml @ 0 mls/hr Q0M ONCE IV 03/11/20 23:24 03/11/20 23:27 DC 03/11/20 23:36 999 MLS/HR Nitroglycerin 0.4 mg UD PRN 03/12/20 00:30 03/12/20 01:00 0.4 MG Ondansetron HCl 8 mg ONCE ONCE IVP 03/11/20 23:30 03/11/20 23:31 DC 03/11/20 23:35 8 MG Vital Signs/I&O 03/11/20 23:08 Temp 36.5 Pulse 111 Resp 22 B/P (MAP) 178/103 (128) O2 Delivery Room Air Blood Pressure Mean: 128 Progress Progress Note : Progress Note Although patient was initially being seen for vomiting, diarrhea, and weakness, she commented on chest pain during the initial assessment. She had no chest pain on arrival but later did develop chest pain. EKG showed possible atrial tachycardia was some ST depression. This was compared with prior and ST depression was found to be chronic. When patient's chest pain returned, she was treated with nitroglycerin and aspirin. Nitroglycerin seemed to improve her pain. She denied pain at the time of admission. Troponin returned slightly bumped. Case was discussed with Dr. Siegel who recommended continued anticoagulation. CT of the chest, abdomen and pelvis was obtained as patient had some epigastric tenderness and elevated WBC. CT showed probable gastroenteritis with no other acute findings. Patient's diarrhea was treated with Levsin and Lomotil. She did have more episodes of diarrhea in the ER. IV fluids were infused. Patient received Zofran and Pepcid for nausea and vomiting. COVID-19 swab was obtained due to patient's complaints of chest pain and diarrhea. Initial ECG Impression Date: Mar 11, 2020 Initial ECG Impression Time: 23:23 Initial ECG Rate: 109 Comment Atrial tachycardia with some ST depression similar to EKG from 2015. No ST elevation. Probable LVH. Diagnostic Imaging Diagonstic Imaging: Xray Plain Films/CT/US/NM/MRI: chest Comments Chest x-ray viewed by me. Report not yet available. No acute abnormality appreciated. Diagonstic Imaging: CT Plain Films/CT/US/NM/MRI: chest, abdomen, pelvis Comments CT chest, abdomen and pelvis viewed by me and [facility] report reviewed. There is gaseous distention of the stomach and small bowel with no obvious obstruction. No other acute abnormalities appreciated. Findings may represent gastro- enteritis. Departure Communication (Admissions) Time/Spoke to Admitting Phy: 03:00 Dr. Panda Time/Spoke to Consulting Phy: 00:26 Dr. Siegel Impression Primary Impression: Chest pain Qualified Codes: R07.9 - Chest pain, unspecified Additional Impressions: Elevated troponin Gastroenteritis Disposition: ADMITTED INPATIENT Condition: Improved Admissions Decision to Admit Reason: Admit from ER (General) Decision to Admit/Date: Mar 12, 2020 Time/Decision to Admit Time: 00:26 Departure-Patient Inst. Referrals: ACPRI FRAGOSO MD (PCP) Primary Care Physician [facility]/ (Family) Primary Care Physician ARMANI RENDON MD Mar 12, 2020 03:55
[2020-03-12] MEDS ORDERED: ONDANSETRON 4 MG/2 ML (SDV) Z0FRAN IV PRN (04:00)
[2020-03-12] MEDS ORDERED: DIPHENOXYLATE/ATROPINE 2.5MG/0.025MG (LOMOTIL) TAB PO PRN (04:15)
[2020-03-12] MEDS ORDERED: morphine INJ 4 MG/ML 1 ML (VIAL/SYRINGE) IV PRN (04:15)
[2020-03-12 05:04] LABS: TRIGLYCERIDES 120 MG/DL (<150); VLDL CHOLESTEROL 24 MG/DL (5-40)
[2020-03-12 05:09] LABS: CHOLESTEROL 106 MG/DL (< 200)
[2020-03-12 05:10] LABS: HDL CHOLESTEROL 29 MG/DL (40-60)
--- NOTE | 2020-03-12 05:10 | NUR ---
PT ASKED WHERE HER CANE WAS. NO CANE WAS BROUGHT WITH PT TO ER. CLOTHES, PURSE, GLASSES WERE ONLY ITEMS WITH PT ON ARRIVAL VIA EMS.
[2020-03-12] MEDS: NS IV 1000 ML 1,000 ML IV SCH ×3 (05:30→17:51)
--- NOTE | 2020-03-12 07:21 | Diagnostic Imaging Report ---
PROCEDURE: CT chest, abdomen, and pelvis without contrast. TECHNIQUE: Multiple contiguous axial images were obtained through the chest, abdomen, and pelvis without the use of intravenous contrast. Auto Exposure Controls were utilized during the CT exam to meet ALARA standards for radiation dose reduction. DATE: March 12, 2020. COMPARISON: Chest radiographs March 12, 2020. CT chest July 02, 2019. INDICATION: 74-year-old female, nausea, vomiting, diarrhea. FINDINGS: There are limitations for evaluation of the abdominal organs, neoplastic processes, abscess, and limited evaluation of the vasculature relating to the lack of intravenous contrast. There are mild peripheral linear opacities in the right lower lobe and of the right upper lobe which most likely relate to mild scarring and/or atelectasis. There are small subcentimeter adjacent right upper lobe pulmonary nodules on axial image 26 which are less prominent than on prior CT chest exam of July 02, 2019. There are previous tree-in-bud type nodules additionally present on the prior CT which are not currently identified. These nodules currently likely relate to sequela of prior process spreading via endobronchial emiliano which is most likely infectious bronchiolitis or aspiration on the prior exam. There is no otherwise noted focal airspace consolidation. There is no pneumothorax. There is no pleural effusion. The central airways are patent. There are atherosclerotic calcifications. The heart is mildly enlarged. There is no pericardial effusion. There is no identified abnormally enlarged mediastinal or axillary lymph node which meets CT size criteria for adenopathy. The liver is unremarkable in size and contour. The gallbladder is unremarkable. There is no identified biliary ductal dilation. Grossly unremarkable limited noncontrast evaluation of the pancreas. The spleen is normal in size. The adrenal glands are unremarkable. There is a low-attenuation left renal lesion on axial image 66 measuring up to 2.7 cm in size with internal attenuation of 10 Hounsfield units consistent with a benign renal cyst. The urinary collecting systems are not distended. There is no identified renal or ureteral stone. There is a Schroeder catheter within a collapsed urinary bladder. The urinary bladder is otherwise not well assessed. There is moderate to severe distention of the stomach. There are abnormally dilated segments of small bowel which measure up to approximately 3.0 cm in diameter. There is no clearly identified transition point and bowel caliber. There is no identified free intraperitoneal air. There is no identified focal drainable fluid collection. There is no identified free pelvic fluid. There are atherosclerotic calcifications. There is no identified abnormally enlarged lymph node in the abdomen or pelvis which meets CT size criteria for adenopathy. There is chondrocalcinosis. There are advanced multilevel degenerative changes of the spine. There is scoliosis. There are median sternotomy wires. IMPRESSION: CT CHEST, ABDOMEN, AND PELVIS 1. Abnormally dilated small bowel and stomach concerning for small bowel obstruction versus ileus without clearly identified transition point. 2. Sequela of prior infectious bronchiolitis or aspiration with persistent mild nodularity in the right upper lobe with significantly improved overall appearance of the right upper lobe since July 02, 2019. 3. No current acute cardiopulmonary abnormality. Report was faxed/called to [facility] ER by renea at 7:20AM. JOSHUA Gregory, was also notified. Dictated by: Dictated on workstation # [id number]
--- NOTE | 2020-03-12 07:43 | Diagnostic Imaging Report ---
EXAMINATION: Chest radiograph, portable AP view. DATE: 03/12/2020 2:29 AM hours. INDICATION: 74-year-old female, nausea, vomiting, diarrhea. COMPARISON: December 24, 2019. FINDINGS: There are median sternotomy wires. There are leads overlying the thoracic spine. Heart size and mediastinal contours are unchanged. There is no identified pneumothorax. There is no large pleural effusion. There is no identified focal airspace consolidation. IMPRESSION: No identified acute cardiopulmonary abnormality. Dictated by: Dictated on workstation # [id number]
[2020-03-12] MEDS: FAMOTIDINE 20MG/2ML IV (PEPCID) IVP SCH ×2 (08:31→20:13)
[2020-03-12] MEDS: ASPIRIN E.C. 81 MG (ECOTRIN) TAB PO SCH (08:31)
[2020-03-12] MEDS: CLOPIDOGREL 75 MG (PLAVIX) TABLET PO SCH (08:31)
--- NOTE | 2020-03-12 10:57 | History & Physical-Hospitalist ---
History of Present Illness HPI/Chief Complaint CC: N/V and chest pain HPI: This is a 74yoWF clinic patient of [facility] who presents to the ER with chest pain and N/V. Patient was swabbed for COVID and that is still pending so PPE used in assessing the patient. Patient feels better since IVF given. Cardiology consulted. Creat 1.3. Nausea is much improved. Source: patient, RN/MD Exam Limitations: no limitations Date Seen 03/12/20 Time Seen by a Provider: 10:00 Attending Physician Dilcia Panda DO PCP Self,Noble MANSFIELD Referring Physician Date of Admission Mar 12, 2020 at 03:09 Home Medications & Allergies Home Medications Reviewed patient Home Medication Reconciliation performed by pharmacy medication reconciliations aerospace technician and/or nursing. Patients Allergies have been reviewed. Allergies Allergies Coded Allergies Penicillins (Unverified Allergy, Unknown, 06/20/15) Past Xzazmhr-Ksqnts-Nzkwgt Hx Past Med/Social Hx: Reviewed Nursing Past Med/Soc Hx, Reviewed and Corrections made Patient Social History Marrital Status: single Employed/Student: retired Alcohol Use: Denies Use Recreational Drug Use: No Smoking Status: Never a Smoker Type Used: Cigarettes 2nd Hand Smoke Exposure: No Recent Foreign Travel: No Contact w/other who traveled: No Recent Hopitalizations: No Recent Infectious Disease Expo: No Immunizations Up To Date Tetanus Booster (TDap): Less than 5yrs Pediatric: No Date of Pneumonia Vaccine: Mar 12, 2018 Date of Influenza Vaccine: Jun 13, 2015 Seasonal Allergies Seasonal Allergies: No Past Medical History Surgeries: Cardiac, Hysterectomy, Tonsillectomy Currently Using CPAP: No Currently Using BIPAP: No Cardiac: High Cholesterol, Hypertension, Valvular Heart Disease Neurological: Stroke Reproductive: No Sexually Transmitted Disease: No HIV/AIDS: No Female Reproductive Disorders: Denies Hysterectomy Gastrointestinal: Irritable Bowel Loss of Vision: Denies Hearing Impairment: Hard of Hearing Psychosocial: Anxiety, Depression History of Blood Disorders: No Adverse Reaction to Blood Mcnally: No Family History Patient reports no known family medical history. No Pertinent Family Hx, Stroke Review of Systems Constitutional: see HPI Cardiovascular: chest pain Gastrointestinal: loss of appetite, nausea, vomiting Physical Exam Physical Exam Vital Signs Vital Signs - First Documented 03/11/20 03/12/20 23:08 04:51 Temp 36.5 Pulse 111 Resp 22 B/P (MAP) 178/103 (128) Pulse Ox 98 O2 Delivery Room Air Capillary Refill : Less Than 3 Seconds Height, Weight, BMI Height: 5'7.00" Weight: 162lbs. 7.0oz. 73.235461sg; 27.66 BMI Method:Stated General Appearance: No Apparent Distress, Chronically ill Eyes: Right Eye Normal Inspection, Right Eye PERRL HEENT: PERRL/EOMI, Normal ENT Inspection, Pharynx Normal, Moist Mucous Membrane s Neck: Full Range of Motion, Normal Inspection, Non Tender Respiratory: Chest Non Tender, Lungs Clear, Normal Breath Sounds, No Accessory Muscle Use, No Respiratory Distress Cardiovascular: Regular Rate, Rhythm, No Edema, No Gallop, No JVD, No Murmur, Normal Peripheral Pulses Gastrointestinal: Normal Bowel Sounds, No Organomegaly, No Pulsatile Mass, Non Tender, Soft Back: Normal Inspection, No CVA Tenderness, No Vertebral Tenderness Extremity: Normal Capillary Refill, Normal Inspection, Normal Range of Motion, Non Tender, No Calf Tenderness, No Pedal Edema Neurologic/Psychiatric: Alert, Oriented x3, No Motor/Sensory Deficits, Normal Mood/Affect Skin: Normal Color, Warm/Dry Lymphatic: No Adenopathy Results Results/Procedures Labs Laboratory Tests 03/11/20 23:35 Patient resulted labs reviewed. Assessment/Plan Admission Diagnosis Assessment: Chest pain Elevated troponin N/V ARF Debility Weakness Plan: COVID swab pending Cardiology evaluation IVF Admission Status: Inpatient Order (span 2 midnights) Reason for Inpatient Admission: N/V CP Diagnosis/Problems Diagnosis/Problems (1) Chest pain Status: Acute Qualifiers: Chest pain type: unspecified Qualified Codes: R07.9 - Chest pain, unspecified (2) Elevated troponin Status: Acute Clinical Quality Measures DVT/VTE Risk/Contraindication: Risk Factor Score Per Nursin RFS Level Per Nursing on Admit: 2=Moderate DILCIA PANDA DO Mar 12, 2020 10:57
[2020-03-12] MEDS: oxyCODONE/APAP 5/325MG (PERCOCET 5) TABLET PO PRN ×2 (12:33→20:19)
--- NOTE | 2020-03-12 15:21 | Consultation-Cardiology ---
HPI-Cardiology Cardiology Consultation: Date of Consultation 03/12/20 Date of Admission Attending Physician Dilcia aPnda DO Admitting Physician Noble Banks MD Consulting Physician Janes SIEGEL MD HPI: Time Seen by a Provider: 13:45 Chief Complaint: Chest discomfort This is a 74-year-old lady who follows with Dr. Ortez in [place] for cardiology. She has previous history of mitral valve repair in July 2015. She has been on Eliquis since then. No clear history of atrial fibrillation. She's been on a beta toni and angiotensin receptor toni as an outpatient. She presented to the ER with complains of diarrhea and vomiting. She also complained of intermittent substernal chest pain with no radiation. No exacerbating or relieving factors. No radiation. She is feeling weak with diarrhea. Review of Systems-Cardiology Review of Systems Constitutional: As described under HPI; No As described under HPI, No no symptoms reported, No chills, No fever, No lightheadedness; tiredness Eyes: No As described under HPI, No no symptoms reported, No blindness, No blurred vision, No contact lenses, No drainage, No decreased acuity, No foreign body sensation, No pain, No vision change Ears/Nose/Throat: No As described under HPI, No no symptoms reported, No chronic hearing loss, No ear discharge, No ear pain, No nasal drainage, No ulcerations Respiratory: No no symptoms reported; As described under HPI; No As described under HPI, No cough, No orthopnea, No shortness of breath, No SOB with excertion Cardiovascular: No no symptoms reported; As described under HPI; No As described under HPI; chest pain; No edema, No irregular heart rate, No lightheadedness, No palpitations Gastrointestinal: No no symptoms reported, No As described under HPI, No abdomen distended, No abdominal pain, No blood streaked bowels, No constipation, No diarrhea, No nausea, No vomiting; nausea/vomiting/diarrhea; No stool coloration changes Genitourinary: No As described under HPI, No burning, No dysuria, No discharge, No frequency, No flank pain, No hematuria, No urgency : Yes : No Skin: No rash, No skin related problems, No ulcerations Psychiatric/Neurological: No anxiety, No depression, No seizure, No focal weakness, No syncope Hematologic: No bleeding abnormalities [id number] Hx Patient Social History Alcohol Use: Denies Use Recreational Drug Use: No Smoking Status: Never a Smoker Former smoker/When Quit: Mar 01, 2014 Type Used: Cigarettes 2nd Hand Smoke Exposure: No Recent Foreign Travel: No Recent Infectious Disease Expo: No Hospitalization with Isolation: Denies Immunizations Up To Date Tetanus Booster (TDap): Less than 5yrs Date of Pneumonia Vaccine: Mar 12, 2018 Date of Influenza Vaccine: Jun 13, 2015 Past Medical History PMH As described under Assessment. Family Medical History Family History: Patient reports no known family medical history. Allergies and Home Medications Allergies Coded Allergies: Penicillins (Unverified Allergy, Unknown, 06/20/15) Home Medications Apixaban 5 Mg Tablet, 5 MG PO BID, (Reported) Aspirin 81 Mg Tab.chew, 81 MG PO DAILY, (Reported) B Complex with Vitamin C 1 Each Tablet.er, 1 TAB PO DAILY, (Reported) Bupropion HCl 300 Mg Tab.er.24h, 300 MG PO DAILY, (Reported) Carvedilol 6.25 Mg Tablet, 6.25 MG PO BID, (Reported) Diclofenac Sodium 100 Gm Gel..gram., 1 APPLIC TP BID PRN for PAIN-BREAKTHROUGH, (Reported) Digoxin 125 Mcg Tablet, 125 MCG PO DAILY, (Reported) Diltiazem HCl 240 Mg Cap.er.24h, 240 MG PO DAILY, (Reported) Docusate Sodium 100 Mg Capsule, 100-300 MG PO DAILY PRN for CONSTIPATION-1ST LINE, (Reported) Escitalopram Oxalate 20 Mg Tablet, 20 MG PO HS, (Reported) Furosemide 40 Mg Tablet, 40 MG PO Q48H, (Reported) Gabapentin 100 Mg Capsule, 100 MG PO TID, (Reported) Hyoscyamine Sulfate 0.125 Mg Tab.subl, 0.125 MG SL Q4H PRN for SPASMS, (Reported) Isosorbide Mononitrate 30 Mg Tab.er.24h, 30 MG PO BID, (Reported) Lorazepam 1 Mg Tablet, 1.5-2 MG PO HS PRN for SLEEP, (Reported) TAKES 1 & TO 2 TABS (1MG) NEEDED Losartan Potassium 50 Mg Tablet, 50 MG PO BID, (Reported) Meloxicam 15 Mg Tablet, 15 MG PO 1200, (Reported) Multivitamin 1 Each Tablet, 1 EACH PO DAILY, (Reported) Ondansetron HCl 4 Mg Tab, 4 MG PO Q4H PRN for PAIN-MILD (1-4), (Reported) Oxycodone HCl/Acetaminophen 1 Each Tablet, 1 EACH PO Q8H PRN for PAIN-MODERATE, (Reported) Rosuvastatin Calcium 10 Mg Tablet, 10 MG PO HS, (Reported) Spironolactone 25 Mg Tablet, 25 MG PO DAILY, (Reported) Patient Home Medication List Home Medication List Reviewed: Yes Physical Exam-Cardiology Physical Exam Vital Signs/I&O 03/13/20 03/13/20 03/13/20 03/13/20 04:00 04:31 06:38 08:00 Temp 36.7 Pulse 108 111 Resp 13 B/P (MAP) 127/76 (93) Pulse Ox 94 O2 Delivery Room Air Room Air Room Air 03/13/20 03/13/20 03/13/20 03/13/20 08:00 08:44 12:00 12:00 Temp 36.2 36.4 36.4 Pulse 109 106 106 Resp 17 18 18 B/P (MAP) 142/86 (104) 126/76 (93) 126/76 (93) Pulse Ox 96 95 95 O2 Delivery Room Air Room Air Room Air Room Air 03/13/20 00:00 Intake Total 1350 ml Output Total 2300 ml Balance -950 ml Capillary Refill : Less Than 3 Seconds Constitutional: appears stated age, AAO x 3; No apparent distress; well- developed, well-nourished HEENT: PERRL; No discharge; hearing is well preserved, oral hygience is good; No ulceration, No xanthelasmas are seen Neck: No carotid bruit; carotid pulses are 2 + bilaterally Respiratory: chest is bilaterally symmetric, lungs clear to auscultation Cardiovascular: regular rate-rhythm, tachycardia, S1 and S2; No diastolic murmur; systolic murmur Gastrointestinal: soft, audible bowel sounds; No spleenomegaly Rectal: deferred Extremities: normal range of motion, non-tender, normal inspection; No clubbing, No cyanosis; no lower extremity edema bilateral; No significant edema Neurologic/Psychiatric: no motor/sensory deficits, alert, normal mood/affect, oriented x 3, power is 5/5 both on sides Skin: normal color, warm/dry; No rash, No ulcerations Data Review Labs Laboratory Tests 7/13/20 03:52: White Blood Count 6.3, Red Blood Count 3.91L, Hemoglobin 12.1#, Hematocrit 35, Mean Corpuscular Volume 91, Mean Corpuscular Hemoglobin 31, Mean Corpuscular Hemoglobin Concent 34, Red Cell Distribution Width 13.1, Platelet Count 138, Mean Platelet Volume 10.2, Neutrophils (%) (Auto) 54, Lymphocytes (%) (Auto) 24, Monocytes (%) (Auto) 13H, Eosinophils (%) (Auto) 9, Basophils (%) (Auto) 0, Neutrophils # (Auto) 3.4, Lymphocytes # (Auto) 1.5, Monocytes # (Auto) 0.8, Eosinophils # (Auto) 0.6H, Basophils # (Auto) 0.0, Sodium Level 138, Potassium Level 3.8, Chloride Level 109H, Carbon Dioxide Level 20L, Anion Gap 9, Blood Urea Nitrogen 13, Creatinine 0.93, Estimat Glomerular Filtration Rate 59, BUN/Creatinine Ratio 14, Glucose Level 92, Calcium Level 8.6, Corrected Calcium 9.2, Total Bilirubin 0.3, Aspartate Amino Transf (AST/SGOT) 13, Alanine Aminotransferase (ALT/SGPT) 14, Alkaline Phosphatase 45, Total Protein 5.4L, Albumin 3.3 ECG Impression ECG Comment Atrial tachycardia with 2-1 AV block. A/P-Cardiology Assessment/Admission Diagnosis Diarrhea, Borderline positive troponin, chest pain, Mitral valve repair in July 2015 Atrial tachycardia with 2-1 AV block Plan Nuclear stress test tomorrow if COVID-19 results come back negative. Otherwise we will wait. Positive serial troponin, however no significant for trend. Echocardiogram when COVID-19 negative. COVID-19 pending. atrial tachycardia with 2-1 AV block: Continue beta toni and Eliquis. Thank you for your consultation. Please call me if you have any questions. Roney Siegel MD, FACP, FACC, FSCAI, FHRS, CCDS Interventional Cardiology Cardiac Electrophysiology Vascular Medicine and Endovascular Interventions Clinical Quality Measures DVT/VTE Risk/Contraindication: Risk Factor Score Per Nursin RFS Level Per Nursing on Admit: 2=Moderate Janes SIEGEL MD Mar 12, 2020 15:21
--- NOTE | 2020-03-12 19:15 | NUR ---
DR. HOLLAND NOTIFIED BY URBANO RN AT THIS TIME ABOUT PT BEING COVID NEGATIVE. NEW ORDERS RECEIVED TO REMOVE ISOLATION PRECAUTIONS. SEE ORDER HX.
[2020-03-12] MEDS ORDERED: MELATONIN 3 MG TABLET PO PRN (19:30)
[2020-03-12] MEDS ORDERED: ONDANSETRON 4 MG/2 ML (SDV) Z0FRAN IVP PRN (19:30)
[2020-03-12] MEDS ORDERED: ACETAMINOPHEN 500 MG TAB (TYLENOL) PO PRN (19:30)
[2020-03-12] MEDS ORDERED: LOPERAMIDE 2 MG (IMODIUM) TABLET PO PRN (19:30)
[2020-03-12] MEDS ORDERED: CALCIUM CARBONATE 500 MG (TUMS) TAB.CHEW PO PRN (19:30)
[2020-03-12] MEDS ORDERED: diphenhydrAMINE 25 MG TAB (BENADRYL) PO PRN (19:30)
[2020-03-12] MEDS ORDERED: DOCUSATE SODIUM 100 MG (COLACE) CAP PO PRN (19:30)
[2020-03-12] MEDS: polyethylene glycoL POWDER 17 GM (MIRALAX) PACK PO SCH (19:46)
[2020-03-12] MEDS: SENNA W/DOCUSATE (SENOKOT S) TABLET PO SCH (19:46)
[2020-03-12] MEDS: ENOXAPARIN 40 MG/0.4 ML (LOVENOX) SYR SC SCH (20:13)
[2020-03-12] MEDS: ALPRAZolam 0.25 MG (XANAX) TAB PO PRN (21:41)
[2020-03-13] MEDS: NS IV 1000 ML 1,000 ML IV SCH ×2 (00:21→16:47)
[2020-03-13 04:00] VITALS: BP 127/76
[2020-03-13 04:02] LABS: BASOPHILS % (AUTO) 0 % (0-10); EOSINOPHILS # (AUTO) 0.6 10^3/uL (0.0-0.3); EOSINOPHILS % (AUTO) 9 % (0-10); HEMATOCRIT 35 % (35-52); HEMOGLOBIN 12.1 G/DL (11.5-16.0); LYMPHOCYTES # (AUTO) 1.5 X 10^3 (1.0-4.0); LYMPHOCYTES % (AUTO) 24 % (12-44); MEAN CORPUSCULAR HEMOGLOBIN 31 PG (25-34); MEAN CORPUSCULAR HGB CONC 34 G/DL (32-36); MEAN CORPUSCULAR VOLUME 91 FL (80-99); MEAN PLATELET VOLUME 10.2 FL (7.4-10.4); MONOCYTES # (AUTO) 0.8 X 10^3 (0.0-1.0); MONOCYTES % (AUTO) 13 % (0-12); NEUTROPHILS # (AUTO) 3.4 X 10^3 (1.8-7.8); NEUTROPHILS % (AUTO) 54 % (42-75); PLATELET COUNT 138 10^3/uL (130-400); RED CELL DISTRIBUTION WIDTH 13.1 % (10.0-14.5); WHITE BLOOD COUNT 6.3 10^3/uL (4.3-11.0)
[2020-03-13 04:13] LABS: ALBUMIN 3.3 GM/DL (3.2-4.5); POTASSIUM 3.8 MMOL/L (3.6-5.0)
[2020-03-13 04:14] LABS: CALCIUM 8.6 MG/DL (8.5-10.1)
[2020-03-13 04:16] LABS: TOTAL PROTEIN 5.4 GM/DL (6.4-8.2)
[2020-03-13 04:17] LABS: BILIRUBIN,TOTAL 0.3 MG/DL (0.1-1.0)
[2020-03-13 04:19] LABS: CREATININE SERUM 0.93 MG/DL (0.60-1.30)
[2020-03-13 08:00] VITALS: BP 142/86
--- NOTE | 2020-03-13 10:46 | Discharge Summary ---
Discharge Summary Hospital Course Was the Problem List Reviewed?: Yes Problems/Dx: (1) Chest pain Status: Acute Qualifiers: Qualified Codes: R07.9 - Chest pain, unspecified (2) Elevated troponin Status: Acute Hospital Course Date of Admission: Mar 12, 2020 at 03:09 Admission Diagnosis : Family Physician/Provider: [place] Date of Discharge: 03/13/20 Discharge Diagnosis: Chest pain, nausea and vomiting, COVID-19 swab negative Hospital Course: see tomorrow DC summary she required additional stay one more night due to tachycardia after EST. Labs and Pending Lab Test: Laboratory Tests 03/13/20 03:52: White Blood Count 6.3, Red Blood Count 3.91L, Hemoglobin 12.1#, Hematocrit 35, Mean Corpuscular Volume 91, Mean Corpuscular Hemoglobin 31, Mean Corpuscular Hemoglobin Concent 34, Red Cell Distribution Width 13.1, Platelet Count 138, Mean Platelet Volume 10.2, Neutrophils (%) (Auto) 54, Lymphocytes (%) (Auto) 24, Monocytes (%) (Auto) 13H, Eosinophils (%) (Auto) 9, Basophils (%) (Auto) 0, Neutrophils # (Auto) 3.4, Lymphocytes # (Auto) 1.5, Monocytes # (Auto) 0.8, Eosinophils # (Auto) 0.6H, Basophils # (Auto) 0.0, Sodium Level 138, Potassium Level 3.8, Chloride Level 109H, Carbon Dioxide Level 20L, Anion Gap 9, Blood Urea Nitrogen 13, Creatinine 0.93, Estimat Glomerular Filtration Rate 59, BUN/Creatinine Ratio 14, Glucose Level 92, Calcium Level 8.6, Corrected Calcium 9.2, Total Bilirubin 0.3, Aspartate Amino Transf (AST/SGOT) 13, Alanine Aminotransferase (ALT/SGPT) 14, Alkaline Phosphatase 45, Total Protein 5.4L, Albumin 3.3 Home Meds Active Doxycycline Hyclate 100 Mg Tablet 100 Mg PO BID Metoprolol Tartrate 100 Mg Tablet 100 Mg PO BID Lasix (Furosemide) 20 Mg Tablet 20 Mg PO DAILY Eliquis (Apixaban) 5 Mg Tablet 5 Mg PO BID 30 Days Reported Calcium + D3 ER Tablet (Calcium Carb & Citrate/Vit D3) 1 Each Tablet.er 2 Tab PO DAILY Colace (Docusate Sodium) 100 Mg Capsule 300 Mg PO DAILY Vitamin B-Complex & C (B Complex with Vitamin C) 1 Each Tablet.er 1 Tab PO DAILY Daily Multiple Vitamin (Multivitamin) 1 Each Tablet 1 Tab PO DAILY Melatonin 5 Mg Tablet 5 Mg PO HS Aspirin 81 Mg Tab.chew 81 Mg PO DAILY Gabapentin 100 Mg Capsule 100 Mg PO TID Oxycodon-Acetaminophen 7.5-325 (Oxycodone HCl/Acetaminophen) 1 Each Tablet 1 Tab PO Q4H PRN Lorazepam 0.5 Mg Tablet 0.5 Mg PO Q8H PRN Escitalopram Oxalate 20 Mg Tablet 20 Mg PO HS Bupropion Xl (Bupropion HCl) 300 Mg Tab.er.24h 300 Mg PO DAILY Crestor (Rosuvastatin Calcium) 10 Mg Tablet 10 Mg PO HS Meloxicam 15 Mg Tablet 15 Mg PO DAILY Potassium Chloride 10 Meq Capsule.er 10 Meq PO BID Lisinopril-Hctz 10-12.5 mg Tab (Lisinopril/Hydrochlorothiazide) 1 Each Tablet 1 Tab PO DAILY Assessment/Pt Instructions [facility] in 1 week Discharge Planning: <30 minutes discharge planning Discharge Instructions Discharge Diet: No Restrictions, Regular Diet Activity as Tolerated: Yes Discharge Physical Examination Vital Signs Vital Signs Date Time Temp Pulse Resp B/P (MAP) Pulse Ox O2 Delivery O2 Flow Rate FiO2 03/13/20 08:44 Room Air 03/13/20 08:00 36.2 109 17 142/86 (104) 96 General Appearance: No Apparent Distress, WD/WN, Chronically ill Respiratory: Normal Breath Sounds, Other (decreased breath sounds) Cardiovascular: Regular Rate, Rhythm Neurologic/Psychiatric: Alert, Oriented x3 Allergies: Coded Allergies: Penicillins (Unverified Allergy, Unknown, 06/20/15) Discharge Summary Date of Admission Mar 12, 2020 at 03:09 Date of Discharge Discharge Date: Mar 13, 2020 Admission Diagnosis Assessment: Chest pain Elevated troponin N/V ARF Debility Weakness Plan: COVID swab pending Cardiology evaluation IVF Discharge Diagnosis (1) Chest pain Status: Acute Qualifiers: Qualified Codes: R07.9 - Chest pain, unspecified (2) Elevated troponin Status: Acute Clinical Quality Measures DVT/VTE Risk/Contraindication: Risk Factor Score Per Nursin RFS Level Per Nursing on Admit: 2=Moderate PILI HOLLAND DO Mar 13, 2020 10:46
[2020-03-13] MEDS ORDERED: REGADENOSON 0.4 MG/5 ML SYR (LEXISCAN) IV ONE ×2 (11:00→12:12)
[2020-03-13] MEDS ORDERED: CATHETER FLUSH 10 ML SYR IV PRN (11:30)
[2020-03-13 12:00] VITALS: BP 126/76
[2020-03-13] MEDS: CLOPIDOGREL 75 MG (PLAVIX) TABLET PO SCH (13:48)
[2020-03-13] MEDS: ASPIRIN E.C. 81 MG (ECOTRIN) TAB PO SCH (13:48)
[2020-03-13] MEDS: SENNA W/DOCUSATE (SENOKOT S) TABLET PO SCH ×3 (13:48→20:31)
[2020-03-13] MEDS ORDERED: MULT-1136 PO (13:49)
[2020-03-13] MEDS ORDERED: SPIR25TA PO (13:49)
[2020-03-13] MEDS ORDERED: LORA-405 PO (13:49)
[2020-03-13] MEDS ORDERED: DIGO125T3 PO (13:49)
[2020-03-13] MEDS ORDERED: CARV6.25 PO (13:49)
[2020-03-13] MEDS: FAMOTIDINE 20MG/2ML IV (PEPCID) IVP SCH ×2 (13:49→20:31)
[2020-03-13] MEDS ORDERED: DILT240C53 PO (13:49)
[2020-03-13] MEDS ORDERED: ISOS30TA3 PO (13:49)
[2020-03-13] MEDS ORDERED: OXYC-465 PO (13:49)
[2020-03-13] MEDS ORDERED: APIX5TAB PO (13:49)
[2020-03-13] MEDS ORDERED: FURO-124 PO (13:49)
[2020-03-13] MEDS ORDERED: MELO15TA39 PO (13:49)
[2020-03-13] MEDS ORDERED: LOSA50TA63 PO (13:49)
[2020-03-13] MEDS ORDERED: DICL100G18 TP (13:49)
[2020-03-13] MEDS: polyethylene glycoL POWDER 17 GM (MIRALAX) PACK PO SCH ×2 (13:50→20:09)
[2020-03-13] MEDS ORDERED: HYOS-19 SL (13:50)
[2020-03-13] MEDS ORDERED: ONDN4T PO (13:50)
--- NOTE | 2020-03-13 14:15 | Cardiology Stress Test Report ---
Stress Test Report Type of NM Stress Test: Test Type: LEXISCAN 0.4MG/5ML Date of Procedure/Referring: Date of Procedure: Mar 13, 2020 PCP Dilcia Panda DO Admitting Physician Noble Banks MD Indications: Chest pain, borderline troponin Baseline Heart Rate: 13 Baseline Blood Pressure: Blood Pressure Systolic: 126 Blood Pressure Diastolic: 76 Baseline EKG: Baseline EKG: Sinus rhythm Summary & Conclusion: Summary: The patient was brought to the stress lab after informed consent was taken. Stress test was performed according to the Lexiscan protocol. 0.4 mg of IV Lexiscan was given. Low-grade exercise was performed. Baseline EKG showed atrial tachycardia with 2:1 AV block at 113 BPM. Initial blood pressure was 126/94 mmHg. Maximum heart rate was 114 bpm and blood pressure 158/83 mmHg. Patient did not have any chest pain, arrhythmias or ST segment changes during the stress test. 10.14 mCi of Myoview were given for rest imaging and 30.7 mCi of Myoview given for stress imaging. Transient ischemic dilatation score 1.09, EF 53 percent. Normal wall motion. Normal myocardial perfusion imaging during rest and stress. Conclusion: Pharmacological stress test was negative for ischemia. Normal LV function with no wall motion abnormalities. Normal myocardial perfusion imaging during rest and stress. Janes CLEMENTS MD Mar 13, 2020 14:15
--- NOTE | 2020-03-13 14:22 | Cardiology Progress Note ---
Cardiology SOAP Progress Note Subjective: No chest pain. Objective: I&O/Vital Signs 03/13/20 03/13/20 03/13/20 03/13/20 04:00 04:31 06:38 08:00 Temp 36.7 Pulse 108 111 Resp 13 B/P (MAP) 127/76 (93) Pulse Ox 94 O2 Delivery Room Air Room Air Room Air 03/13/20 03/13/20 03/13/20 03/13/20 08:00 08:44 12:00 12:00 Temp 36.2 36.4 36.4 Pulse 109 106 106 Resp 17 18 18 B/P (MAP) 142/86 (104) 126/76 (93) 126/76 (93) Pulse Ox 96 95 95 O2 Delivery Room Air Room Air Room Air Room Air 03/13/20 00:00 Intake Total 1350 ml Output Total 2300 ml Balance -950 ml Weight (Pounds): 162 Weight (Ounces): 7.0 Weight (Calculated Kilograms): 73.895010 Constitutional: appears stated age, AAO x 3; No apparent distress; well- developed, well-nourished Respiratory: chest is bilaterally symmetric, lungs clear to auscultation Cardiovascular: regular rate-rhythm, tachycardia, S1 and S2; No diastolic murmur; systolic murmur Gastrointestional: soft, audible bowel sounds; No spleenomegaly Extremities: normal range of motion, non-tender, normal inspection; No clubbing, No cyanosis; no lower extremity edema bilateral; No significant edema Neurologic/Psychiatric: no motor/sensory deficits, alert, normal mood/affect, oriented x 3, power is 5/5 both on sides Skin: normal color, warm/dry; No rash, No ulcerations Results/Procedures: Labs Laboratory Tests 03/13/20 03:52: White Blood Count 6.3, Red Blood Count 3.91L, Hemoglobin 12.1#, Hematocrit 35, Mean Corpuscular Volume 91, Mean Corpuscular Hemoglobin 31, Mean Corpuscular Hemoglobin Concent 34, Red Cell Distribution Width 13.1, Platelet Count 138, Mean Platelet Volume 10.2, Neutrophils (%) (Auto) 54, Lymphocytes (%) (Auto) 24, Monocytes (%) (Auto) 13H, Eosinophils (%) (Auto) 9, Basophils (%) (Auto) 0, Neutrophils # (Auto) 3.4, Lymphocytes # (Auto) 1.5, Monocytes # (Auto) 0.8, Eosinophils # (Auto) 0.6H, Basophils # (Auto) 0.0, Sodium Level 138, Potassium Level 3.8, Chloride Level 109H, Carbon Dioxide Level 20L, Anion Gap 9, Blood Urea Nitrogen 13, Creatinine 0.93, Estimat Glomerular Filtration Rate 59, BUN/Creatinine Ratio 14, Glucose Level 92, Calcium Level 8.6, Corrected Calcium 9.2, Total Bilirubin 0.3, Aspartate Amino Transf (AST/SGOT) 13, Alanine Patel otransferase (ALT/SGPT) 14, Alkaline Phosphatase 45, Total Protein 5.4L, Albumin 3.3 A/P: Assessment/Dx: Diarrhea, Borderline positive troponin, chest pain, Mitral valve repair in July 2015 Atrial tachycardia with 2-1 AV block, Acute kidney injury likely due to dehydration. Plan: Chest pain, positive troponin. Nuclear stress test done on 03/13/2020 showed no evidence of ischemia or infarct. Echocardiogram done 03/13/2020 shows an LVEF of 35-40 percent. Dilated left atrium. Significantly thickened mitral valve. The patient has history of mitral valve repair. Patient is already on angiotensin receptor toni, spironolactone, beta toni and Lasix. Continue same medical therapy. COVID-19 negative. atrial tachycardia with 2-1 AV block: Continue beta toni and Eliquis. Acute kidney injury due to dehydration. Improved creatinine with IV fluids. Patient can follow-up with her outpatient lieutenant general in the next one week. Thank you for your consultation. Please call me if you have any questions. Roney Clements MD, FACP, FACC, FSCAI, FHRS, CCDS Interventional Cardiology Cardiac Electrophysiology Vascular Medicine and Endovascular Interventions Janes CLEMENTS MD Mar 13, 2020 14:21
--- NOTE | 2020-03-13 14:23 | D/C HH Face to Face Order ---
D/C Face to Face Orders Reconcile Patient Problems Problems Reviewed?: Yes Instructions for Patient Home Health Patient Instructions/FollowUp: [facility] 1 week Physician to follow Patient: [facility] Discharge Diet for Home: Cardiac Diet, Soft Diet Patient Problems: Chest pain with normal EST Diarrhea N/V Goals for Patient: [place] Patient Data-Allergies,Ht & Wt Patient Allergies: Coded Allergies: Penicillins (Unverified Allergy, Unknown, 06/20/15) Height (Feet): 5 Height (Inches): 7.00 Weight (Pounds): 162 Weight (Ounces): 7.0 Home Health Need/Face to Face Date of Face to Face: Mar 13, 2020 Clinical Findings: Generalized weakness and fatigue, Muscle weakness, Unsteady gait I have seen Pt [id number]: Yes Discharged To: Home Diagnosis/Conditions: Chest pain with normal EST Diarrhea N/V Patient is Homebound due to: Sary fall risk due to instabilty, Muscle weakness Homebound Status Due to the above stated illness, injury or surgical procedure (medical condition or diagnosis) and associated clinical findings, the patient is homebound because of his/her inability to leave home except with aid of a supportive device and/or person AND leaving the home requires a considerable and taxing effort or is medically contraindicated. Pt req the following assistanc: [facility] Nursing Orders Home Health Services Order: Nursing Services, Metal Crafts Teacher-Evaluate & Treat, Physical Therapy-Evaluate & Treat Home Health Infusion Therapy Line Start Date: Mar 11, 2020 Certify Stmt I certify that this patient is under my care and that I, a nurse practitioner or a physician; a graphic design assistant working with me, had a face to face encounter that - meets the physician face to face encounter requirements with this patient as dated. PILI HOLLAND DO Mar 13, 2020 14:22
--- NOTE | 2020-03-13 14:30 | Physical Therapy Evaluation ---
PT Evaluation-General Medical Diagnosis Admission Date Mar 12, 2020 at 03:09 Medical Diagnosis: N/V and chest pain Onset Date: Mar 12, 2020 Therapy Diagnosis Therapy Diagnosis: impaired mobility, strength, endurance Height/Weight Height (Feet): 5 Height (Inches): 7.00 Weight (Pounds): 162 Weight (Ounces): 7.0 Precautions Precautions/Isolations: Fall Prevention, Standard Precautions Referral Physician: Dilcia Panda DO Reason for Referral: Evaluation/Treatment Medical History Additional Medical History Past Medical History Surgeries: Cardiac, Hysterectomy, Tonsillectomy Currently Using CPAP: No Currently Using BIPAP: No Cardiac: High Cholesterol, Hypertension, Valvular Heart Disease Neurological: Stroke Reproductive: No Sexually Transmitted Disease: No HIV/AIDS: No Female Reproductive Disorders: Denies Hysterectomy Gastrointestinal: Irritable Bowel Loss of Vision: Denies Hearing Impairment: Hard of Hearing Psychosocial: Anxiety, Depression Reviewed History: Yes Social History Home: Single Level Current Living Status: Alone Entry Into Home: Stairs With Railing PT Steps Into Home: 3 Prior Prior Level of Function SCALE: Activities may be completed with or without assistive devices. 2-Ffigimcxgg-rreotbs completes the activity by him/herself with no assistance from a helper. 5-Set-up or Clean-up Assistance-helper sets up or cleans up; patient completes activity. [place] assists only prior to or following the activity. 4-Supervision or Touching Assistance-helper provides verbal cues and/or touching/steadying and/or contact guard assistance as patient completes activity. Assistance may be provided throughout the activity or intermittently. 3-Partial/Moderate Assistance-helper does LESS THAN HALF the effort. [place] lifts, holds or supports trunk or limbs, but provides less than half the effort. 2-Substantial/Maximal Assistance-helper does MORE THAN HALF the effort. [place] lifts or holds trunk or limbs and provides more than half the effort. 4-Dsomvdcje-owjbkl does ALL the effort. Patient does none of the effort to complete the activity. Or, the assistance of 2 or more helpers is required for the patient to complete the activity. If activity was not attempted, code reason: 7-Patient Refused. 9-Not Applicable-not attempted and the patient did not perform the activity before the current illness, exacerbation or injury. 10-Not Attempted due to Environmental Limitations-(lack of equipment, weather restraints, etc.). 88-Not Attempted due to Medical Conditions or Safety Concerns. Bed Mobility: 6 Transfers (B,C,W/C): 6 Gait: 6 Stairs: 6 Indoor Mobility (Ambulation): Independent Stairs: Independent Patient used a SPC outside of the home PT Evaluation-Current Subjective Patient in bed pre tx, agrees to PT, has unrated pain in left leg, she says from lumbar stenosis. Patient states she has been falling at home and has been going to outpatient therapy to improve strength and balance. Pt/Family Goals to be independent at home. Objective Patient Orientation: Person, Place, Situation Attachments: Schroeder Catheter, IV ROM/Strength ROM Lower Extremities WNL Strength Lower Extremities RLE (hip flexion 4+/5, knee flexion 5/5, knee extension 5/5, dorsiflexion 4+/5), LLE (hip flexion 3/5, knee flexion 3+/5, knee extension 3+/5, dorsiflexion 3/5) Sensory Vision: Wears Glasses Hearing: Functional Sensation Right Lower Extremit: Intact Sensation Left Lower Extremity: Intact Transfers Roll Left to Right (QC): 6 Sit to Lying (QC): 6 Lying to Sitting/Side of Bed(Q: 6 Sit to Stand (QC): 4 Chair/Ova-hn-Mugza Xfer(QC): 4 some dizziness with supine to sit, resolved quickly with sitting on the side of the bed. Gait Does the Patient Walk?: Yes Mode of Locomotion: Walk Anticipated Mode of Locomotion: Walk Walk 10 feet (QC): 4 Walk 50 ft with 2 Turns(QC): 4 Walk 150 ft (QC): 4 Distance: 200' Gait Assistive Device: FWW Comments/Gait Description Patient ambulates slowly but steady, wide SAMUEL, had one bout of dizziness that lasted for a few seconds, stopped and it went away. Cues for direction. Balance Sitting Static: Normal Sitting Dynamic: Normal Standing Static: Fair Standing Dynamic: Fair Assessment/Needs Patient has impaired mobility, strength, endurance. Weakness in left leg, inte rmittent dizziness. Rehab Potential: Fair PT Detention Goals Detention Goals PT Detention Goals Time Frame: Mar 20, 2020 Roll Left & Right (QC): 6 Sit to Lying (QC): 6 Lying-Sitting on Side/Bed(QC): 6 Sit to Stand (QC): 5 Chair/Eov-mt-Dmljj Xfer(QC): 5 Walk 10 feet (QC): 5 Walk 50ft with 2 Turns (QC): 5 Walk 150 ft (QC): 5 PT Plan Problem List Problem List: Activity Tolerance, Functional Strength, Safety, Balance, Gait, Transfer Treatment/Plan Treatment Plan: Continue Plan of Care Treatment Plan: Education, Functional Activity Lisa, Functional Strength, Gait, Safety, Therapeutic Exercise, Transfers Treatment Duration: Mar 20, 2020 Frequency: 6 times per week Estimated Hrs Per Day: .25 hour per day Patient and/or Family Agrees t: Yes Safety Risks/Education Patient Education: Gait Training, Transfer Techniques, Correct Positioning, Safety Issues Teaching Recipient: Patient Teaching Methods: Demonstration, Discussion Response to Teaching: Reinforcement Needed Discharge Recommendations Plan Patient will perform bed mobility and transfer training, balance and endurance training, functional strengthening, stair training, gait training, and education, to improve functional mobility and independence at home. Therapy Discharge Recommendati: Home & Family, Post Acute PT Time/GCodes Time In: 1406 Time Out: 1420 Total Billed Treatment Time: 14 Total Billed Treatment 1 visit ERICA KRISHNAMURTHY PT Mar 13, 2020 14:30
--- NOTE | 2020-03-13 14:50 | NUR ---
SPOKE WITH THE PATIENTS DAUGHTER (THERE WAS A MED LIST ON THE PTS FILE) AND CALLED [facility] TO COMPLETE THE MED REC FUROSEMIDE 40MG- DIRECTIONS SHOW 1 TAB DAILY HOWEVER THE PT IS TAKING 1 TAB EVERY 48 HOURS THE FOLLOWING ARE FILL DATES: 11-12-2019 FUROSEMIDE 40MG #90/180DS 12-18-2019 ROSUVASTATIN 10MG #90/90DS 12-18-2019 ELIQUIS 5MG #180/90DS 12-23-2019 GABAPENTIN 100MG #270/90DS 01-01-2020 COREG 6.25MG #180/90DS 01-17-2020 LOSARTAN 50MG #180/90DS 02-02-2020 CARTIA XT 240MG #90/90DS 02-02-2020 DIGOXIN 125MCG #90/90DS 02-02-2020 ISOSORBIDE ER MONO 30MG #120/60DS 02-15-2020 MELOXICAM 15MG #90/90DS 02-23-2020 VOLTAREN GEL #3 02-23-2020 BUPROPION XL 300MG #90/90DS 02-23-2020 LORAZEPAM 1MG #56/28DS 03-10-2020 ESCITALOPRAM 20MG #90/90DS 03-10-2020 HYOSCYAMINE 0.25MG #30 03-10-2020 ZOFRAN 4MG #30 03-12-2020 SPIRONOLACTONE 25MG #90/90DS OTC MEDS: ASPIRIN 81MG MTV VIT B COMPLEX W/ VIT C COLACE
--- NOTE | 2020-03-13 14:57 | Occupational Therapy Eval ---
OT Evaluation-General/PLF Medical Diagnosis Admission Date Mar 12, 2020 at 03:09 Medical Diagnosis: N/V and chest pain Onset Date: Mar 12, 2020 Therapy Diagnosis Therapy Diagnosis: Decreased ADL status Height/Weight Height (Feet): 5 Height (Inches): 7.00 Weight (Pounds): 162 Weight (Ounces): 7.0 Precautions Precautions/Isolations: Fall Prevention, Standard Precautions Referral Physician: Dilcia Panda DO Referral Reason: Activity Tolerance, Self Care, Evaluation/Treatment, Strengthening/ROM Medical History Pertinent Medical History: CVA, HTN Additional Medical History high cholesterol, HTN, valvular heart disease, CVA, anxiety/ depression, hard of hearing, irritable bowel. Current History Pt experienced chest pain/ nausea and vomiting at home. Admits to ER via EMS. pt COVID negative 03/12 at 1915. Pt demonstrates increased troponin, weakness, and atrial tachycardia. Reviewed History: Yes Social History Home: Single Level Current Living Status: Alone Entry Into Home: Stairs With Railing Steps Into Home: 3 ADL-Prior Level of Function SCALE: Activities may be completed with or without assistive devices. 0-Nnelebjmpf-wteapkl completes the activity by him/herself with no assistance from a helper. 5-Set-up or Clean-up Assistance-helper sets up or cleans up; patient completes activity. [place] assists only prior to or following the activity. 4-Supervision or Touching Assistance-helper provides verbal cues and/or touching/steadying and/or contact guard assistance as patient completes activity. Assistance may be provided throughout the activity or intermittently. 3-Partial/Moderate Assistance-helper does LESS THAN HALF the effort. [place] lifts, holds or supports trunk or limbs, but provides less than half the effort. 2-Substantial/Maximal Assistance-helper does MORE THAN HALF the effort. [place] lifts or holds trunk or limbs and provides more than half the effort. 8-Snirdxbpo-dzctle does ALL the effort. Patient does none of the effort to complete the activity. Or, the assistance of 2 or more helpers is required for the patient to complete the activity. If activity was not attempted, code reason: 7-Patient Refused. 9-Not Applicable-not attempted and the patient did not perform the activity before the current illness, exacerbation or injury. 10-Not Attempted due to Environmental Limitations-(lack of equipment, weather restraints, etc.). 88-Not Attempted due to Medical Conditions or Safety Concerns. ADL PLOF Comments Pt IND with I/ADL tasks with use of SPC. Self Care: Independent Functional Cognition: Independent DME/Equipment: Bath Chair, Tub/Shower DME/Equipment Comments Pt states does not use tub, states sponge bathes. Occupation: retired. Drive Self: Yes OT Current Status Subjective Pt seen in bed. Pt states pain in LLE, nausea present. Pt's daughter present through session, pt agreeable to OT tx session. Mental Status/Objective Patient Orientation: Person, Place, Situation, Normal For Age Attachments: Schroeder Catheter, Telemetry Current Hand Dominance: Right Upper Extremity ROM WFL BUE Upper Extremity Coordination WFL BUE Upper Extremity Sensation WFL BUE Upper Extremity Strength WFL (4/5 bilaterally) ADL-Treatment Eating (QC): 6 Oral Hygiene (QC): 6 Other Treatments Pt agrees to OT eval/ treat. Pt completes bed mob with SBA. Sits EOB ~5 min during eval. Pt c/o dizziness/ nausea. Pt states feels very weak. CGA throughout. Pt encouraged to take time, pt denies OOB activity; pt and daughter provide hx. Pt and daughter educated on OT role and correct positioning in bed as pt states she has been supine since Friday. pt encouraged to complete AROM throughout the day to increase strength. Pt becomes tearful, stating she is weak and worried. Active listening provided for pt care. Pt's daughter expresses she lives in [place] and does not make it back too often, pt declines close friends/ family assisting throughout the week. Pt returns to bed. Pt declines eating, though requests additional Jello. Pt left in bed, all needs met[facility], daughter present. Pt educated on skilled OT continuation of services for goal attainment. Pt sits upright/ bed positioned for seated position. Nursing notified of pt position, Jello request and pain. Education OT Patient Education: Correct positioning, Home exercise program, Purpose of tx/functional activities, Safety issues Teaching Recipient: Patient, Family Teaching Methods: Demonstration, Discussion Response to Teaching: Verbalize Understanding, Return Demonstration OT Middleware Engineer Goals Care Home Goals Time Frame: Mar 20, 2020 Eating (QC): 6 Oral Hygiene (QC): 6 Toileting Hygiene (QC): 4 Shower/Bathe Self (QC): 5 Upper Body Dressing (QC): 6 Lower Body Dressing (QC): 4 On/Off Footwear (QC): 6 Additional Goals: 1-Demonstrate ADL Tasks, 2-Verbalize Understanding, 3- ImproveStrength/Lisa 1=Demonstrate adherence to instructed precautions during ADL tasks. 2=Patient will verbalize/demonstrate understanding of assistive devices/modifi cations for ADL. 3=Patient will improve strength/tolerance for activity to enable patient to perform ADL's. OT Education/Plan Problem List/Assessment Assessment: Decreased Activ Tolerance, Decreased UE Strength, Impaired I ADL's, Impaired Self-Care Skills Discharge Recommendations Plan/Recommendations: Continue POC Therapy Discharge Recommendati: Post Acute OT Treatment Plan/Plan of Care Treatment,Training & Education: Yes Patient would benefit from OT for education, treatment and training to promote independence in ADL's, mobility, safety and/or upper extremity function for ADL's. Plan of Care: ADL Retraining, Caregiver Training, Functional Mobility, UE Funct Exercise/Act Treatment Duration: Mar 20, 2020 Frequency: 5 times per week Estimated Hrs Per Day: .25 hour per day Agreement: Yes Rehab Potential: Fair Time/GCodes Start Time: 14:22 Stop Time: 14:40 Total Time Billed (hr/min): 18 Billed Treatment Time ROBBIE Hernandez (18) ALESSANDRO POP OTR Mar 13, 2020 14:57
--- NOTE | 2020-03-13 15:40 | NUR ---
This nurse called , I updated him on patients elevated HR. I was looking at patients home medications, patient takes Coreg 6.25mg BID, Diltiazem 240mg daily and Digoxin 125mcg daily. gave this nurse a verbal telephone order to give Coreg, Diltiazem and Digoxin from med rec. now.
[2020-03-13] MEDS ORDERED: CARVEDILOL 6.25 MG (COREG) TAB PO NR (15:45)
[2020-03-13] MEDS ORDERED: DIGOXIN 0.125 MG (LANOXIN) TAB PO ONE (15:45)
--- NOTE | 2020-03-13 15:46 | NUR ---
IRF Evaluation Determination: Denied Explanation: It appears patient is ambulating (200ft, FWW) and transferring with supervision, as well as completing bed mobility with independence; therefore, patient does not require intensive therapies. CM/SS notified. Thank you for this referral.
[2020-03-13] MEDS ORDERED: DIGOXIN 0.125 MG (LANOXIN) TAB ONE (15:49)
[2020-03-13] MEDS ORDERED: CARVEDILOL 6.25 MG (COREG) TAB ONE (15:49)
[2020-03-13 16:00] VITALS: BP 150/106
--- NOTE | 2020-03-13 16:02 | NUR ---
CM/SS visited with the patient for social service consult. Plan: The patient will discharge home with home health and a front-wheeled walker. Home Health: The patient was provided a patient preference form and chose [facility]. CM/SS contacted [place] and spoke with Maya to make referral. The patient and her daughter asked about inpatient rehab. CM/SS spoke with Araceli who stated she did not meet criteria. CM/SS informed the patients family. They verbalized understanding. DME: The patient was provided a patient preference form and chose [facility]. CM/SS faxed the script, face sheet, insurance card, and H&P. They will deliver to the hospital. CM/SS informed the patient and her daughter. They verbalized understanding. No further needs at this time. Addendum: 03/13/20 at 1617 by LAKEISHA ANDERSON CM/SS did speak with the patients daughter that if they felt she was not succeeding at home to possibly look into half-way fci placement. They verbalized understanding.
[2020-03-13] MEDS: oxyCODONE/APAP 5/325MG (PERCOCET 5) TABLET PO PRN ×2 (18:06→21:45)
[2020-03-13 19:44] VITALS: BP 132/80
[2020-03-13] MEDS: ENOXAPARIN 40 MG/0.4 ML (LOVENOX) SYR SC SCH (20:31)
[2020-03-13] MEDS: CARVEDILOL 6.25 MG (COREG) TAB PO SCH (20:31)
--- NOTE | 2020-03-13 21:40 | NUR ---
THIS RN NOTIFIED DR. CLEMENTS THAT PATIENT IS IN A-FLUTTER WITH CONTROLLED HR IN 60-90'S. EKG RESULTS SENT AT THIS TIME. 03/13/20 AM EKG SHOWED SINUS TACHYCARDIA. NO NEW ORDERS RECEIVED.
[2020-03-13] MEDS: ALPRAZolam 0.25 MG (XANAX) TAB PO PRN (21:47)
[2020-03-13 23:52] VITALS: BP 125/69
[2020-03-14 03:30] LABS: BASOPHILS % (AUTO) 0 % (0-10); EOSINOPHILS # (AUTO) 0.6 10^3/uL (0.0-0.3); EOSINOPHILS % (AUTO) 8 % (0-10); HEMATOCRIT 36 % (35-52); HEMOGLOBIN 12.4 G/DL (11.5-16.0); LYMPHOCYTES # (AUTO) 1.9 X 10^3 (1.0-4.0); LYMPHOCYTES % (AUTO) 24 % (12-44); MEAN CORPUSCULAR HEMOGLOBIN 31 PG (25-34); MEAN CORPUSCULAR HGB CONC 35 G/DL (32-36); MEAN CORPUSCULAR VOLUME 90 FL (80-99); MEAN PLATELET VOLUME 10.3 FL (7.4-10.4); MONOCYTES # (AUTO) 0.9 X 10^3 (0.0-1.0); MONOCYTES % (AUTO) 12 % (0-12); NEUTROPHILS # (AUTO) 4.2 X 10^3 (1.8-7.8); NEUTROPHILS % (AUTO) 55 % (42-75); PLATELET COUNT 154 10^3/uL (130-400); RED CELL DISTRIBUTION WIDTH 12.7 % (10.0-14.5); WHITE BLOOD COUNT 7.6 10^3/uL (4.3-11.0)
[2020-03-14 03:44] VITALS: BP 134/68
[2020-03-14 03:50] LABS: ALBUMIN 3.5 GM/DL (3.2-4.5); POTASSIUM 3.7 MMOL/L (3.6-5.0)
[2020-03-14] MEDS: NS IV 1000 ML 1,000 ML IV SCH ×2 (03:51→11:39)
[2020-03-14 03:53] LABS: TOTAL PROTEIN 5.7 GM/DL (6.4-8.2)
[2020-03-14] MEDS: oxyCODONE/APAP 5/325MG (PERCOCET 5) TABLET PO PRN ×2 (03:53→10:37)
[2020-03-14 03:55] LABS: BILIRUBIN,TOTAL 0.4 MG/DL (0.1-1.0)
[2020-03-14 03:56] LABS: CREATININE SERUM 0.97 MG/DL (0.60-1.30)
--- NOTE | 2020-03-14 05:59 | Discharge Summary ---
Discharge Summary Hospital Course Was the Problem List Reviewed?: Yes Problems/Dx: (1) Chest pain Status: Acute Qualifiers: Qualified Codes: R07.9 - Chest pain, unspecified (2) Elevated troponin Status: Acute Hospital Course Date of Admission: Mar 12, 2020 at 03:09 Admission Diagnosis : [facility] Date of Discharge: 03/14/20 Discharge Diagnosis: Assessment: Chest pain Elevated troponin N/V ARF Debility Weakness Hospital Course: Hospital course: Pt had an uneventful hospital course she was admitted for nausea, vomiting, diarrhea and chest pain. Stress test did not show any evidence of reversible ischemia. She did have AFIB with RVR after the procedure due to holding most of her medications so she was restarted on everything. Pt did have an episode of bradycardia of 40. She ultimately stabilized and will have close follow-up with Dr. Ortez. Nausea, vomiting and diarrhea had completely resolved. Walker order was placed along with home health. Labs and Pending Lab Test: Laboratory Tests 03/14/20 03:15: White Blood Count 7.6, Red Blood Count 3.98L, Hemoglobin 12.4, Hematocrit 36, Mean Corpuscular Volume 90, Mean Corpuscular Hemoglobin 31, Mean Corpuscular Hemoglobin Concent 35, Red Cell Distribution Width 12.7, Platelet Count 154, Mean Platelet Volume 10.3, Neutrophils (%) (Auto) 55, Lymphocytes (%) (Auto) 24, Monocytes (%) (Auto) 12, Eosinophils (%) (Auto) 8, Basophils (%) (Auto) 0, Neutrophils # (Auto) 4.2, Lymphocytes # (Auto) 1.9, Monocytes # (Auto) 0.9, Eosinophils # (Auto) 0.6H, Basophils # (Auto) 0.0, Sodium Level 138, Potassium Level 3.7, Chloride Level 105, Carbon Dioxide Level 22, Anion Gap 11, Blood Urea Nitrogen 13, Creatinine 0.97, Estimat Glomerular Filtration Rate 56, BUN/Creatinine Ratio 13, Glucose Level 83, Calcium Level 9.0, Corrected Calcium 9.4, Total Bilirubin 0.4, Aspartate Amino Transf (AST/SGOT) 18, Alanine Aminotransferase (ALT/SGPT) 16, Alkaline Phosphatase 46, Total Protein 5.7L, Albumin 3.5 Home Meds Active Reported Zofran (Ondansetron HCl) 4 Mg Tab 4 Mg PO Q4H PRN Hyoscyamine Sulfate 0.125 Mg Tab.subl 0.125 Mg SL Q4H PRN Voltaren (Diclofenac Sodium) 100 Gm Gel..gram. 1 Applic TP BID PRN Meloxicam 15 Mg Tablet 15 Mg PO 1200 Aldactone (Spironolactone) 25 Mg Tablet 25 Mg PO DAILY Isosorbide Mononitrate ER (Isosorbide Mononitrate) 30 Mg Tab.er.24h 30 Mg PO BID Digoxin 125 Mcg Tablet 125 Mcg PO DAILY Lasix (Furosemide) 40 Mg Tablet 40 Mg PO Q48H Cartia Xt (Diltiazem HCl) 240 Mg Cap.er.24h 240 Mg PO DAILY Coreg (Carvedilol) 6.25 Mg Tablet 6.25 Mg PO BID Losartan Potassium 50 Mg Tablet 50 Mg PO BID Eliquis (Apixaban) 5 Mg Tablet 5 Mg PO BID Multivitamin 1 Each Tablet 1 Each PO DAILY Oxycodone-Acetaminophen 10-325 (Oxycodone HCl/Acetaminophen) 1 Each Tablet 1 Ea ch PO Q8H PRN MDD 3 Ativan (Lorazepam) 1 Mg Tablet 1.5-2 Mg PO HS PRN TAKES 1 & TO 2 TABS (1MG) NEEDED Colace (Docusate Sodium) 100 Mg Capsule 100-300 Mg PO DAILY PRN Vitamin B-Complex & C (B Complex with Vitamin C) 1 Each Tablet.er 1 Tab PO DAILY Aspirin 81 Mg Tab.chew 81 Mg PO DAILY Gabapentin 100 Mg Capsule 100 Mg PO TID Escitalopram Oxalate 20 Mg Tablet 20 Mg PO HS Bupropion Xl (Bupropion HCl) 300 Mg Tab.er.24h 300 Mg PO DAILY Crestor (Rosuvastatin Calcium) 10 Mg Tablet 10 Mg PO HS Assessment/Pt Instructions [facility] [address] Ortez cardiology in 1 week Discharge Planning: <30 minutes discharge planning Discharge Instructions Discharge Diet: No Restrictions, Regular Diet, Cardiac Diet Activity as Tolerated: Yes Discharge Physical Examination Vital Signs Vital Signs Date Time Temp Pulse Resp B/P (MAP) Pulse Ox O2 Delivery O2 Flow Rate FiO2 03/14/20 04:00 95 Room Air 03/14/20 03:44 36.4 64 17 134/68 (90) General Appearance: No Apparent Distress Respiratory: Normal Breath Sounds Cardiovascular: Regular Rate, Rhythm Neurologic/Psychiatric: Alert, Oriented x3 Allergies: Coded Allergies: Penicillins (Unverified Allergy, Unknown, 06/20/15) Discharge Summary Date of Admission Mar 12, 2020 at 03:09 Date of Discharge Discharge Date: Mar 13, 2020 Admission Diagnosis Assessment: Chest pain Elevated troponin N/V ARF Debility Weakness Plan: COVID swab pending Cardiology evaluation IVF Discharge Diagnosis (1) Chest pain Status: Acute Qualifiers: Qualified Codes: R07.9 - Chest pain, unspecified (2) Elevated troponin Status: Acute Clinical Quality Measures DVT/VTE Risk/Contraindication: Risk Factor Score Per Nursin RFS Level Per Nursing on Admit: 2=Moderate PILI HOLLAND DO Mar 14, 2020 05:59
[2020-03-14] MEDS: polyethylene glycoL POWDER 17 GM (MIRALAX) PACK PO SCH (07:34)
[2020-03-14] MEDS: SENNA W/DOCUSATE (SENOKOT S) TABLET PO SCH (07:34)
[2020-03-14 08:00] VITALS: BP 131/65
[2020-03-14] MEDS ORDERED: DIGOXIN 0.125 MG (LANOXIN) TAB PO SCH (09:00)
[2020-03-14] MEDS: CARVEDILOL 6.25 MG (COREG) TAB PO SCH (09:00)
[2020-03-14] MEDS: FAMOTIDINE 20MG/2ML IV (PEPCID) IVP SCH (09:00)
[2020-03-14] MEDS: ASPIRIN E.C. 81 MG (ECOTRIN) TAB PO SCH (09:48)
[2020-03-14] MEDS: CLOPIDOGREL 75 MG (PLAVIX) TABLET PO SCH (09:48)
--- NOTE | 2020-03-14 10:46 | Physical Therapy Progress Note ---
Therapy Progress Note Nurse stated pt is DC soon. INTEGRITY CONSULTANT checked on pt and pt didn't have any questions or concerns for PT. STEPHANE SHERIDAN INTEGRITY CONSULTANT Mar 14, 2020 10:46
--- NOTE | 2020-03-14 12:45 | NUR ---
CM/SS contacted [facility] to inform them that patient did not discharge yesterday as planned but is predicted to discharge today per notes. CM/SS will contact [place] again when patient leaves hospital.
[2020-03-14 13:00] VITALS: BP 159/84
--- NOTE | 2020-03-14 14:02 | Physical Therapy Progress Note ---
Therapy Progress Note FOOD SERVICE AMBASSADOR checks on pt again in pm as pt was supposed to DC per Dr Panda's note, Nurse & Aide. Pt awaiting ride, yet to DC. PT will resume is tomorrow (03/15) if pt has not DC. STEPHANE SHERIDAN FOOD SERVICE AMBASSADOR Mar 14, 2020 14:02
--- NOTE | 2020-03-14 14:22 | Cardiology Progress Note ---
Cardiology SOAP Progress Note Subjective: No cardiac symptoms. Objective: I&O/Vital Signs 03/14/20 03/14/20 03/14/20 03/14/20 03:44 04:00 06:38 08:00 Temp 36.4 36.4 Pulse 64 57 54 Resp 17 20 B/P (MAP) 134/68 (90) 131/65 (87) Pulse Ox 94 95 95 O2 Delivery Room Air Room Air Room Air 03/14/20 03/14/20 03/14/20 03/14/20 08:00 09:00 11:37 13:00 Temp 36.7 Pulse 89 Resp 16 B/P (MAP) 159/84 (109) Pulse Ox 95 95 93 O2 Delivery Room Air Room Air Room Air Room Air 03/14/20 00:00 Intake Total 600 ml Output Total 1100 ml Balance -500 ml Weight (Pounds): 162 Weight (Ounces): 7.0 Weight (Calculated Kilograms): 73.876297 Constitutional: appears stated age, AAO x 3, well-developed, well-nourished Respiratory: chest is bilaterally symmetric, lungs clear to auscultation Cardiovascular: regular rate-rhythm, S1 and S2, systolic murmur Gastrointestional: soft, audible bowel sounds Extremities: normal range of motion, non-tender, normal inspection, no lower extremity edema bilateral Neurologic/Psychiatric: no motor/sensory deficits, alert, normal mood/affect, oriented x 3, power is 5/5 both on sides Skin: normal color, warm/dry Results/Procedures: Labs Laboratory Tests 03/14/20 03:15: White Blood Count 7.6, Red Blood Count 3.98L, Hemoglobin 12.4, Hematocrit 36, Mean Corpuscular Volume 90, Mean Corpuscular Hemoglobin 31, Mean Corpuscular Hemoglobin Concent 35, Red Cell Distribution Width 12.7, Platelet Count 154, Mean Platelet Volume 10.3, Neutrophils (%) (Auto) 55, Lymphocytes (%) (Auto) 24, Monocytes (%) (Auto) 12, Eosinophils (%) (Auto) 8, Basophils (%) (Auto) 0, Neutrophils # (Auto) 4.2, Lymphocytes # (Auto) 1.9, Monocytes # (Auto) 0.9, Eosinophils # (Auto) 0.6H, Basophils # (Auto) 0.0, Sodium Level 138, Potassium Level 3.7, Chloride Level 105, Carbon Dioxide Level 22, Anion Gap 11, Blood Urea Nitrogen 13, Creatinine 0.97, Estimat Glomerular Filtration Rate 56, BUN/Creatinine Ratio 13, Glucose Level 83, Calcium Level 9.0, Corrected Calcium 9.4, Total Bilirubin 0.4, Aspartate Amino Transf (AST/SGOT) 18, Alanine Aminotransferase (ALT/SGPT) 16, Alkaline Phosphatase 46, Total Protein 5.7L, Albumin 3.5 A/P: Assessment/Dx: Diarrhea, Borderline positive troponin, chest pain, Mitral valve repair in July 2015 Atrial tachycardia with 2-1 AV block, Acute kidney injury likely due to dehydration. Plan: Chest pain, positive troponin. Nuclear stress test done on 03/13/2020 showed no evidence of ischemia or infarct. Echocardiogram done 03/13/2020 shows an LVEF of 35-40 percent. Dilated left atrium. Significantly thickened mitral valve. The patient has history of mitral valve repair. Patient is already on angiotensin receptor toni, spironolactone, beta toni and Lasix. Continue same medical therapy. COVID-19 negative. atrial tachycardia with 2-1 AV block: Continue beta toni and Eliquis. Acute kidney injury due to dehydration. Improved creatinine with IV fluids. Bradycardia overnight with heart rates in the 50s. Once or twice heart rate in the 40s. However patient does not have any symptoms. When I spoke to the patient she told me that her heart rate runs in the 50s and early 60s. Therefore if the patient does not have any symptoms of dizziness, near-syncope or syncope, we will let her go home to follow with her outpatient supervisor pipelines this week. The patient understands. Patient can follow-up with her outpatient supervisor pipelines in the next one week. Thank you for your consultation. Please call me if you have any questions. Roney Siegel MD, FACP, FACC, FSCAI, FHRS, CCDS Interventional Cardiology Cardiac Electrophysiology Vascular Medicine and Endovascular Interventions Janes SIEGEL MD Mar 14, 2020 14:22
--- NOTE | 2020-03-14 14:34 | Occ Therapy Progress Note ---
Therapy Progress Note Attempted OT treatment at 1423. Pt sitting in chair, states she will be discharging today. States she has been getting up to restroom today without difficulty and has already showered this morning. Pt declined OT treatment, states she has no questions or concerns at this time regarding ADLs or home safety. RN confirms pt to d/c. 1, visit BHARTI GUAJARDO OT Mar 14, 2020 14:34
[2020-03-14] MEDS ORDERED: FAMOTIDINE 20 MG (PEPCID) TABLET PO SCH (21:00)
== END 2020-03-14 14:45 | disposition home health service (06) | DRG 313 ==
LOC: EDUNIT# 23:08 → ER 23:09 → ICU 03-12 03:09 → CSD 03-12 20:30
PROVIDERS: ADMIT Internal Medicine; ATTEND Internal Medicine
DX: R07.9 Chest pain, unspecified (principal); I47.1 Supraventricular tachycardia; N17.9 Acute kidney failure, unspecified; R79.89 Other specified abnormal findings of blood chemistry; I44.1 Atrioventricular block, second degree; K58.0 Irritable bowel syndrome with diarrhea; I10 Essential (primary) hypertension; R53.1 Weakness; R53.81 Other malaise; E78.00 Pure hypercholesterolemia, unspecified; M48.00 Spinal stenosis, site unspecified; K58.9 Irritable bowel syndrome, unspecified; F41.9 Anxiety disorder, unspecified; F32.9 Major depressive disorder, single episode, unspecified; I48.91 Unspecified atrial fibrillation; E86.0 Dehydration; Z20.828 Contact with and (suspected) exposure to other viral communicable diseases; Z86.73 Personal history of transient ischemic attack (TIA), and cerebral infarction without residual deficits; Z87.891 Personal history of nicotine dependence; Z95.4 Presence of other heart-valve replacement
CPT/HCPCS: 36415; 51702; 71045; 71250; 74176; 78452; 80053; 80061; 81000; 83690; 83735; 83874; 84484; 85007; 85025; 85027; 85610; 85730; 86141; 87635; 93005; 93017; 93041; 93306; 96361; 96372; 96374; 96375

== ENCOUNTER 2020-04-11 08:13 | Emergency (ER) | payer MEDICARE ==
[~2020-04-11] VITALS: Ht 162 cm; Wt 73.0 kg
[~2020-04-11 08:13] MED LIST changes: +CARV6.25 PO; +DICL100G18 TP; +DIGO125T3 PO; +DILT240C53 PO; +FURO-124 PO; +HYOS-19 SL; +ISOS30TA3 PO; +LORA-405 PO; +LOSA50TA63 PO; +MULT-1136 PO; +ONDN4T PO; +OXYC-465 PO; +SPIR25TA PO
--- NOTE | 2020-04-11 08:24 | ED General ---
General Chief Complaint: General Problems/Pain Stated Complaint: POSSIBLE OVERDOSE Source of Information: Patient, EMS Exam Limitations: No Limitations History of Present Illness Date Seen by Provider: Apr 11, 2020 Time Seen by Provider: 08:15 Initial Comments 74-year-old female presents with concerns for possible oxycodone overdose. Patient is prescribed 10/325 oxycodone's. She thinks she may have accidentally taken 5 or 6 of them a rollover an hour ago. Patient has no lethargy nausea vomiting or other systemic complaints. Allergies and Home Medications Allergies Coded Allergies: Penicillins (Unverified Allergy, Unknown, 06/20/15) Home Medications Apixaban 5 Mg Tablet, 5 MG PO BID, (Reported) Aspirin 81 Mg Tab.chew, 81 MG PO DAILY, (Reported) B Complex with Vitamin C 1 Each Tablet.er, 1 TAB PO DAILY, (Reported) Bupropion HCl 300 Mg Tab.er.24h, 300 MG PO DAILY, (Reported) Carvedilol 6.25 Mg Tablet, 6.25 MG PO BID, (Reported) Diclofenac Sodium 100 Gm Gel..gram., 1 APPLIC TP BID PRN for PAIN-BREAKTHROUGH, (Reported) Digoxin 125 Mcg Tablet, 125 MCG PO DAILY, (Reported) Diltiazem HCl 240 Mg Cap.er.24h, 240 MG PO DAILY, (Reported) Docusate Sodium 100 Mg Capsule, 100-300 MG PO DAILY PRN for CONSTIPATION-1ST LINE, (Reported) Escitalopram Oxalate 20 Mg Tablet, 20 MG PO HS, (Reported) Furosemide 40 Mg Tablet, 40 MG PO Q48H, (Reported) Gabapentin 100 Mg Capsule, 100 MG PO TID, (Reported) Hyoscyamine Sulfate 0.125 Mg Tab.subl, 0.125 MG SL Q4H PRN for SPASMS, (Reported) Isosorbide Mononitrate 30 Mg Tab.er.24h, 30 MG PO BID, (Reported) Lorazepam 1 Mg Tablet, 1.5-2 MG PO HS PRN for SLEEP, (Reported) TAKES 1 & TO 2 TABS (1MG) NEEDED Losartan Potassium 50 Mg Tablet, 50 MG PO BID, (Reported) Meloxicam 15 Mg Tablet, 15 MG PO 1200, (Reported) Multivitamin 1 Each Tablet, 1 EACH PO DAILY, (Reported) Ondansetron HCl 4 Mg Tab, 4 MG PO Q4H PRN for PAIN-MILD (1-4), (Reported) Oxycodone HCl/Acetaminophen 1 Each Tablet, 1 EACH PO Q8H PRN for PAIN-MODERATE, (Reported) Rosuvastatin Calcium 10 Mg Tablet, 10 MG PO HS, (Reported) Spironolactone 25 Mg Tablet, 25 MG PO DAILY, (Reported) Patient Home Medication List Home Medication List Reviewed: Yes Review of Systems Review of Systems Constitutional: no symptoms reported EENTM: no symptoms reported Respiratory: no symptoms reported Cardiovascular: no symptoms reported Gastrointestinal: no symptoms reported Genitourinary: no symptoms reported Musculoskeletal: no symptoms reported Skin: no symptoms reported Psychiatric/Neurological: No Symptoms Reported Past Fuekahq-Dmhswr-Jinrtt Hx Past Med/Social Hx: Reviewed Nursing Past Med/Soc Hx Patient Social History Type Used: Cigarettes 2nd Hand Smoke Exposure: No Recent Hopitalizations: No Immunizations Up To Date Tetanus Booster (TDap): Less than 5yrs PED Vaccines UTD: No Date of Pneumonia Vaccine: Mar 12, 2018 Date of Influenza Vaccine: Jun 13, 2015 Seasonal Allergies Seasonal Allergies: No Past Medical History Surgeries: Yes (implanted nerve stimulator, MITRAL AND TRICUSPID VALVE REPAIRS) Cardiac, Hysterectomy, Tonsillectomy Respiratory: No Currently Using CPAP: No Currently Using BIPAP: No Cardiac: Yes High Cholesterol, Hypertension, Valvular Heart Disease Neurological: Yes (spinal stenosis) Stroke Reproductive Disorders: No Female 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 No Pertinent Family Hx, Stroke Physical Exam Vital Signs Vital Signs - First Documented 04/11/20 08:13 Temp 36.8 Pulse 71 Resp 20 B/P (MAP) 179/84 (115) Pulse Ox 99 Capillary Refill : Height, Weight, BMI Height: 5'7.00" Weight: 162lbs. 7.0oz. [id number]; 27.66 BMI Method:Stated General Appearance: No Apparent Distress, WD/WN HEENT: PERRL/EOMI, TMs Normal Respiratory: Chest Non Tender, Lungs Clear, Normal Breath Sounds Cardiovascular: Regular Rate, Rhythm, Normal Peripheral Pulses Neurologic/Psychiatric: Alert, Oriented x3, No Motor/Sensory Deficits, Normal Mood/Affect, endodontist II-XII Norm as Tested Skin: Normal Color, Warm/Dry Progress/Results/Core Measures Suspected Sepsis SIRS Temperature: Pulse: Respiratory Rate: Laboratory Tests 04/11/20 08:30: White Blood Count 7.2 Blood Pressure / Mean: Laboratory Tests 04/11/20 08:30: Creatinine 1.19, Platelet Count 186, Total Bilirubin 0.3 Results/Orders Lab Results Laboratory Tests Test 04/11/20 08:30 04/11/20 11:14 Range/Units White Blood Count 7.2 4.3-11.0 10^3/uL Red Blood Count 3.94 L 4.35-5.85 10^6/uL Hemoglobin 12.2 11.5-16.0 G/DL Hematocrit 35 35-52 % Mean Corpuscular Volume 90 80-99 FL Mean Corpuscular Hemoglobin 31 25-34 PG Mean Corpuscular Hemoglobin Concent 35 32-36 G/DL Red Cell Distribution Width 12.2 10.0-14.5 % Platelet Count 186 130-400 10^3/uL Mean Platelet Volume 9.6 7.4-10.4 FL Neutrophils (%) (Auto) 55 42-75 % Lymphocytes (%) (Auto) 24 12-44 % Monocytes (%) (Auto) 16 H 0-12 % Eosinophils (%) (Auto) 5 0-10 % Basophils (%) (Auto) 0 0-10 % Neutrophils # (Auto) 4.0 1.8-7.8 X 10^3 Lymphocytes # (Auto) 1.7 1.0-4.0 X 10^3 Monocytes # (Auto) 1.2 H 0.0-1.0 X 10^3 Eosinophils # (Auto) 0.4 H 0.0-0.3 10^3/uL Basophils # (Auto) 0.0 0.0-0.1 10^3/uL Sodium Level 130 L 135-145 MMOL/L Potassium Level 4.7 3.6-5.0 MMOL/L Chloride Level 95 L 98-107 MMOL/L Carbon Dioxide Level 28 21-32 MMOL/L Anion Gap 7 5-14 MMOL/L Blood Urea Nitrogen 24 H 7-18 MG/DL Creatinine 1.19 0.60-1.30 MG/DL Estimat Glomerular Filtration Rate 44 BUN/Creatinine Ratio 20 Glucose Level 105 70-105 MG/DL Calcium Level 9.6 8.5-10.1 MG/DL Corrected Calcium 9.4 8.5-10.1 MG/DL Total Bilirubin 0.3 0.1-1.0 MG/DL Aspartate Amino Transf (AST/SGOT) 18 5-34 U/L Alanine Aminotransferase (ALT/SGPT) 24 0-55 U/L Alkaline Phosphatase 83 40-136 U/L Total Protein 6.9 6.4-8.2 GM/DL Albumin 4.2 3.2-4.5 GM/DL Acetaminophen Level 11 < 10 L 10-30 UG/ML My Orders Orders - MARIS HURT DO Acetaminophen (04/11/20 08:24) Cbc With Automated Diff (04/11/20 08:24) Comprehensive Metabolic Panel (04/11/20 08:24) Acetaminophen (04/11/20 10:22) Vital Signs/I&O 04/11/20 08:13 Temp 36.8 Pulse 71 Resp 20 B/P (MAP) 179/84 (115) Pulse Ox 99 Capillary Refill : Progress Note : Time: 12:09 Progress Note Patient was monitored for a couple hours in the ER. Tylenol levels were within normal limits. There is no physical signs or alert indications that she took a significant amount of her pills. Patient stable and will be discharged home Departure Impression Primary Impression: Accidental acetaminophen overdose Qualified Codes: T39.1X1A - Poisoning by 4-aminophenol derivatives, accidental (unintentional), initial encounter Additional Impression: Accidental overdose Qualified Codes: T50.901A - Poisoning by unspecified drugs, medicaments and biological substances, accidental (unintentional), initial encounter Disposition: 01 HOME, SELF-CARE Condition: Stable Departure-Patient Inst. Referrals: SELFCAPRI MD (PCP) Primary Care Physician [facility] (Family) Primary Care Physician Patient Instructions: Medication Safety, Adult, Accidental Overdose (DC) Add. Discharge Instructions: Follow-up with your primary care provider for continuation of care and recheck for todays visit All discharge instructions reviewed with patient and/or family. Voiced understanding. MARIS HURT DO Apr 11, 2020 08:23
--- NOTE | 2020-04-11 08:34 | NUR ---
SEE LIST FOR CURRENT MEDS
[2020-04-11 08:43] LABS: BASOPHILS % (AUTO) 0 % (0-10); EOSINOPHILS # (AUTO) 0.4 10^3/uL (0.0-0.3); EOSINOPHILS % (AUTO) 5 % (0-10); HEMATOCRIT 35 % (35-52); HEMOGLOBIN 12.2 G/DL (11.5-16.0); LYMPHOCYTES # (AUTO) 1.7 X 10^3 (1.0-4.0); LYMPHOCYTES % (AUTO) 24 % (12-44); MEAN CORPUSCULAR HEMOGLOBIN 31 PG (25-34); MEAN CORPUSCULAR HGB CONC 35 G/DL (32-36); MEAN CORPUSCULAR VOLUME 90 FL (80-99); MEAN PLATELET VOLUME 9.6 FL (7.4-10.4); MONOCYTES # (AUTO) 1.2 X 10^3 (0.0-1.0); MONOCYTES % (AUTO) 16 % (0-12); NEUTROPHILS % (AUTO) 55 % (42-75); PLATELET COUNT 186 10^3/uL (130-400); RED CELL DISTRIBUTION WIDTH 12.2 % (10.0-14.5); WHITE BLOOD COUNT 7.2 10^3/uL (4.3-11.0)
[2020-04-11 08:49] LABS: POTASSIUM 4.7 MMOL/L (3.6-5.0)
[2020-04-11 08:50] LABS: ALBUMIN 4.2 GM/DL (3.2-4.5)
[2020-04-11 08:52] LABS: CALCIUM 9.6 MG/DL (8.5-10.1)
[2020-04-11 08:53] LABS: TOTAL PROTEIN 6.9 GM/DL (6.4-8.2)
[2020-04-11 08:54] LABS: BILIRUBIN,TOTAL 0.3 MG/DL (0.1-1.0)
[2020-04-11 08:56] LABS: CREATININE SERUM 1.19 MG/DL (0.60-1.30)
--- NOTE | 2020-04-11 11:25 | NUR ---
Assisted pt via ED w/c to restroom. Pt unable to urinate while in restroom.
--- NOTE | 2020-04-11 12:15 | NUR ---
GRANDDAUGHTER NOTIFIED TO CAKE BATTER MIXER PT IN ED.
[2020-04-11 12:20] VITALS: BP 113/63
== END 2020-04-11 12:20 | disposition home or self-care (01) ==
LOC: EDUNIT# 08:14 → ER 08:15
DX: T39.1X1A Poisoning by 4-Aminophenol derivatives, accidental (unintentional), initial encounter (principal); T40.2X1A Poisoning by other opioids, accidental (unintentional), initial encounter; I10 Essential (primary) hypertension; E78.00 Pure hypercholesterolemia, unspecified; F41.9 Anxiety disorder, unspecified; F32.9 Major depressive disorder, single episode, unspecified; K58.9 Irritable bowel syndrome, unspecified; Z88.0 Allergy status to penicillin; Z86.73 Personal history of transient ischemic attack (TIA), and cerebral infarction without residual deficits; Z79.01 Long term (current) use of anticoagulants; Z79.82 Long term (current) use of aspirin
CPT/HCPCS: 80053; 85025; G0480; 36415; 80329

== ENCOUNTER → 2021-09-13 | Outpatient (CLI) | payer MEDICARE ==
[~2021-09-13] MED LIST changes: +CATHETER FLUSH 10 ML SYR IV PRN; +ESCI20TA39 PO; -ESCI20TA45 PO; +HOLD METFORMIN - RECEIVED CONTRAST 20 ML VIAL IV SCH; +IOHEXOL 350 MG/ML 100 ML (OMNIPAQUE 350) VIAL IV ONE; -ISOS30TA3 PO; +ISOS30TA82 PO; -LISI1TAB29 PO; +LISI1TAB44 PO; +NS 100 ML (IVPB) BAG IV ONE; -OXYC-464 PO; -OXYC-465 PO; +OXYC-556 PO; +OXYC1TAB15 PO
--- NOTE | 2021-09-13 15:37 | Diagnostic Imaging Report ---
EXAMINATION: CT abdomen and pelvis with intravenous contrast. TECHNIQUE: Multiple contiguous axial images were obtained through the abdomen and pelvis after the uneventful administration of intravenous contrast. All CT scans use one or more of the following dose optimizing techniques: automated exposure control, MA and/or KvP adjustment based on patient size and exam type or iterative reconstruction. HISTORY: GENERALIZED ABD PAIN COMPARISON: 03/12/2020. FINDINGS: Lung bases: The lung bases are clear. Solid organs: The liver is normal without focal lesion. The gallbladder is normal. There is no biliary ductal dilation. Pancreas is normal. Spleen is normal. Adrenal glands are normal. There is a mildly complex left renal cyst with thin septation. There may be mild thickening seen along the periphery of the cyst without definitive enhancement. No hydronephrosis. Bowel: The stomach and small bowel are normal without obstruction. A duodenal diverticulum is present. The colon and appendix are normal. Peritoneum: There is no intraperitoneal free fluid or free air. No suspicious lymphadenopathy. Vasculature: Calcification of the aorta without aneurysm. Musculoskeletal: There is dextrocurvature of the lumbar spine. Degenerative changes of the spine without suspicious osseous lesion or compression fracture. Spinal stimulator is present. Pelvis: The uterus is surgically absent. No adnexal mass. The urinary bladder is normal. IMPRESSION: 1. No acute abnormality in the abdomen or pelvis. 2. Mildly complex left renal cystic lesion which is increased in size from 03/12/2020. This finding is more suspicious and raises the concern for a cystic renal neoplasm. Dictated by: Dictated on workstation # [id number]
== END ==
LOC: RAD 13:15
PROVIDERS: ATTEND Family Medicine
DX: R10.84 Generalized abdominal pain (principal); E87.1 Hypo-osmolality and hyponatremia; N28.9 Disorder of kidney and ureter, unspecified
CPT/HCPCS: 74177

== ENCOUNTER 2021-11-20 10:16 | Emergency (ER) | payer MEDICARE ==
[~2021-11-20] VITALS: Ht 162 cm; Wt 63.0 kg
[~2021-11-20 10:16] MED LIST changes: -CATHETER FLUSH 10 ML SYR IV PRN; -HOLD METFORMIN - RECEIVED CONTRAST 20 ML VIAL IV SCH; -IOHEXOL 350 MG/ML 100 ML (OMNIPAQUE 350) VIAL IV ONE; -NS 100 ML (IVPB) BAG IV ONE
[2021-11-20] MEDS ORDERED: ASPIRIN 81 MG CHEW (CHILDREN'S ASA) PO ONE (10:30)
--- NOTE | 2021-11-20 10:37 | ED Chest Pain ---
General Chief Complaint: Chest Pain Stated Complaint: CHEST PAIN - FALL Nursing Triage Note: ARRIVED VIA AMB WITH COMPLAINTS OF HAVING CHEST PAIN X2-3 DAYS THEN FALLING ON THE FLOOR WHILE GETTING DRESSED THIS AM DUE TO A SLICK FLOOR. DENIES CP AT THIST TIME BUT COMPLAINS OF DIZZINESS AFTER FALL. DENIES HITTING HER HEAD. Source: patient Exam Limitations: no limitations History of Present Illness Date Seen by Provider: Nov 20, 2021 Time Seen by Provider: 10:34 Initial Comments To ER by private vehicle from home with reports of sharp left-sided chest pain for 2 to 3 days. This morning while in the bathroom getting ready to come to the emergency room to evaluate this she tripped and fell but denies any injury or having hit her head. She denies any chest pain at this time. She denies any nausea. She does have some shortness of breath recently. She has had a long- term cough at night without known cause. She did have an unintentional weight loss of about 20 pounds over the course of a couple of months. Primary overlay plastician is Dr. Ortez in [place]. History of mitral valve replacement about 6 years ago. She has known atrial fibrillation but is not anticoagulated. She states that due to her risk of falling and bleeding they stopped the anticoagulant use about a year ago. Timing/Duration: changing over time Severity/Quality: moderate Location: central Radiation: no radiation Activities at Onset: none ASA po DRIVER SERVICE TECHNICIAN: No NTG SL DRIVER SERVICE TECHNICIAN: No Associated Symptoms: shortness of breath Allergies and Home Medications Allergies Coded Allergies: Penicillins (Unverified Allergy, Unknown, 06/20/15) Patient Home Medication List Home Medication List Reviewed: Yes Apixaban (Eliquis) 5 Mg Tablet, 5 MG PO BID, (Reported) Entered as Reported by: EDWARD POWERS on 03/13/20 1349 Aspirin (Aspirin) 81 Mg Tab.chew, 81 MG PO DAILY, (Reported) Entered as Reported by: LORY DE LA GARZA on 06/20/15 2333 B Complex with Vitamin C (Vitamin B-Complex & C) 1 Each Tablet.er, 1 TAB PO DAILY, (Reported) Entered as Reported by: LORY DE AL GARZA on 06/20/15 2333 Bupropion HCl (Bupropion Xl) 300 Mg Tab.er.24h, 300 MG PO DAILY, (Reported) Entered as Reported by: LORY DE LA GARZA on 06/20/152332 Carvedilol (Coreg) 6.25 Mg Tablet, 6.25 MG PO BID, (Reported) Entered as Reported by: EDWARD POWERS on 03/13/20 134 Diclofenac Sodium (Voltaren) 100 Gm Gel..gram., 1 APPLIC TP BID PRN for PAIN- BREAKTHROUGH, (Reported) Entered as Reported by: EDWARD POWERS on 03/13/20 134 Digoxin (Digoxin) 125 Mcg Tablet, 125 MCG PO DAILY, (Reported) Entered as Reported by: EDWARD POWERS on 03/13/20 134 Diltiazem HCl (Cartia Xt) 240 Mg Cap.er.24h, 240 MG PO DAILY, (Reported) Entered as Reported by: EDWARD POWERS on 03/13/20 134 Docusate Sodium (Colace) 100 Mg Capsule, 100-300 MG PO DAILY PRN for CONSTIPATION-1ST LINE, (Reported) Entered as Reported by: LORY DE LA GARZA on 06/20/152332 Escitalopram Oxalate (Escitalopram Oxalate) 20 Mg Tablet, 20 MG PO HS, (Reported) Entered as Reported by: LORY DE LA GARZA on 06/20/152332 Furosemide (Lasix) 40 Mg Tablet, 40 MG PO Q48H, (Reported) Entered as Reported by: EDWARD POWERS on 03/13/201348 Gabapentin (Gabapentin) 100 Mg Capsule, 100 MG PO TID, (Reported) Entered as Reported by: LORY DE LA GARZA on 06/20/152332 Hyoscyamine Sulfate (Hyoscyamine Sulfate) 0.125 Mg Tab.subl, 0.125 MG SL Q4H PRN for SPASMS, (Reported) Entered as Reported by: EDWARD POWERS on 03/13/20 135 Isosorbide Mononitrate (Isosorbide Mononitrate ER) 30 Mg Tab.er.24h, 30 MG PO BID, (Reported) Entered as Reported by: EDWARD POWERS on 03/13/20 134 Lorazepam (Ativan) 1 Mg Tablet, 1.5-2 MG PO HS PRN for SLEEP, (Reported) Entered as Reported by: EDWARD POWERS on 03/13/20 134 Losartan Potassium (Losartan Potassium) 50 Mg Tablet, 50 MG PO BID, (Reported) Entered as Reported by: EDWARD POWERS on 03/13/20 1349 Meloxicam (Meloxicam) 15 Mg Tablet, 15 MG PO 1200, (Reported) Entered as Reported by: EDWARD POWERS on 03/13/20 1349 Multivitamin (Multivitamin) 1 Each Tablet, 1 EACH PO DAILY, (Reported) Entered as Reported by: EDWARD POWERS on 03/13/20 1349 Ondansetron HCl (Zofran) 4 Mg Tab, 4 MG PO Q4H PRN for PAIN-MILD (1-4), (Reported) Entered as Reported by: EDWARD POWERS on 03/13/20 1350 Oxycodone HCl/Acetaminophen (Oxycodone-Acetaminophen 10-325) 1 Each Tablet, 1 EACH PO Q8H PRN for PAIN-MODERATE, (Reported) Entered as Reported by: EDWARD POWERS on 03/13/20 1349 Rosuvastatin Calcium (Crestor) 10 Mg Tablet, 10 MG PO HS, (Reported) Entered as Reported by: LORY DE LA GARZA on 06/20/15 2333 Spironolactone (Aldactone) 25 Mg Tablet, 25 MG PO DAILY, (Reported) Entered as Reported by: EDWARD POWERS on 03/13/20 1349 Review of Systems Review of Systems Constitutional: see HPI EENTM: No Symptoms Reported Respiratory: No Symptoms Reported Cardiovascular: See HPI, Chest Pain Gastrointestinal: See HPI; Denies Abdominal Pain Genitourinary: No Symptoms Reported Musculoskeletal: no symptoms reported Skin: no symptoms reported Psychiatric/Neurological: No Symptoms Reported Endocrine: No Symptoms Reported Hematologic/Lymphatic: No Symptoms Reported Past Ghkvjlu-Dvuguc-Hsxmaz Hx Immunizations Up To Date Tetanus Booster (TDap): Less than 5yrs PED Vaccines UTD: No Seasonal Allergies Seasonal Allergies: No Past Medical History Surgeries: Yes (implanted nerve stimulator, MITRAL AND TRICUSPID VALVE REPAIRS) Cardiac, Hysterectomy, Tonsillectomy Respiratory: No Currently Using CPAP: No Currently Using BIPAP: No Cardiac: Yes High Cholesterol, Hypertension, Valvular Heart Disease Neurological: Yes (spinal stenosis) Stroke Reproductive Disorders: No Female Reproductive Disorders: Denies 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 No Pertinent Family Hx, Stroke Physical Exam Vital Signs Vital Signs - First Documented 11/20/21 10:18 Temp 36.3 Pulse 99 Resp 16 B/P (MAP) 166/110 (128) Pulse Ox 93 O2 Delivery Room Air Capillary Refill : Less Than 3 Seconds Height, Weight, BMI Height: 5'7.00" Weight: 162lbs. 7.0oz. 73.082254mw; 24.00 BMI Method:Stated General Appearance: No Apparent Distress, WD/WN, Other (And oriented no distress very pleasant. Oxygen is 94% on room air but she states she feels little short of breath so I gave her 2 L of oxygen just for symptom control. We will see if this helps. EKG shows atrial flutter, rate of 93. No ST segment changes.) HEENT: PERRL/EOMI, TMs Normal Respiratory: No Accessory Muscle Use, No Respiratory Distress Cardiovascular: Regular Rate, Rhythm, Normal Peripheral Pulses Gastrointestinal: Normal Bowel Sounds, Non Tender, Soft Neurologic/Psychiatric: Alert, Oriented x3 Skin: Normal Color, Warm/Dry Progress/Results/Core Measures Results/Orders Lab Results Laboratory Tests Test 11/20/21 10:35 Range/Units White Blood Count 9.9 4.3-11.0 10^3/uL Red Blood Count 3.95 3.80-5.11 10^6/uL Hemoglobin 11.8 11.5-16.0 g/dL Hematocrit 35 35-52 % Mean Corpuscular Volume 89 80-99 fL Mean Corpuscular Hemoglobin 30 25-34 pg Mean Corpuscular Hemoglobin Concent 34 32-36 g/dL Red Cell Distribution Width 12.9 10.0-14.5 % Platelet Count 143 130-400 10^3/uL Mean Platelet Volume 10.4 9.0-12.2 fL Immature Granulocyte % (Auto) 0 % Neutrophils (%) (Auto) 73 42-75 % Lymphocytes (%) (Auto) 13 12-44 % Monocytes (%) (Auto) 10 0-12 % Eosinophils (%) (Auto) 3 0-10 % Basophils (%) (Auto) 1 0-10 % Neutrophils # (Auto) 7.2 1.8-7.8 10^3/uL Lymphocytes # (Auto) 1.3 1.0-4.0 10^3/uL Monocytes # (Auto) 1.0 0.0-1.0 10^3/uL Eosinophils # (Auto) 0.3 0.0-0.3 10^3/uL Basophils # (Auto) 0.1 0.0-0.1 10^3/uL Immature Granulocyte # (Auto) 0.0 0.0-0.1 10^3/uL Prothrombin Time 14.4 12.2-14.7 SEC INR Comment 1.1 0.8-1.4 Activated Partial Thromboplast Time 38 H 24-35 SEC D-Dimer 1.04 H 0.00-0.49 UG/ML Sodium Level 137 135-145 MMOL/L Potassium Level 3.6 3.6-5.0 MMOL/L Chloride Level 101 98-107 MMOL/L Carbon Dioxide Level 25 21-32 MMOL/L Anion Gap 11 5-14 MMOL/L Blood Urea Nitrogen 19 H 7-18 MG/DL Creatinine 1.03 0.60-1.30 MG/DL Estimat Glomerular Filtration Rate 56 BUN/Creatinine Ratio 18 Glucose Level 134 H 70-105 MG/DL Calcium Level 10.0 8.5-10.1 MG/DL Corrected Calcium 10.0 8.5-10.1 MG/DL Magnesium Level 1.9 1.6-2.4 MG/DL Total Bilirubin 0.8 0.1-1.0 MG/DL Aspartate Amino Transf (AST/SGOT) 28 5-34 U/L Alanine Aminotransferase (ALT/SGPT) 21 0-55 U/L Alkaline Phosphatase 79 40-136 U/L Myoglobin 73.8 10.0-92.0 NG/ML Troponin I < 0.028 <0.028 NG/ML B-Type Natriuretic Peptide 247.7 H <100.0 PG/ML Total Protein 7.1 6.4-8.2 GM/DL Albumin 4.0 3.2-4.5 GM/DL Lipase 32 8-78 U/L My Orders Orders - DUNIA SIERRA FINANCIAL AID COORDINATOR Cbc With Automated Diff (11/20/21 10:24) Magnesium (11/20/21 10:24) Chest 1 View, Ap/Pa Only (11/20/21 10:24) Comprehensive Metabolic Panel (11/20/21 10:24) Myoglobin Serum (11/20/21 10:24) Protime With Inr (11/20/21 10:24) Partial Thromboplastin Time (11/20/21 10:24) O2 (11/20/21 10:24) Monitor-Rhythm Ecg Trace Only (11/20/21 10:24) Lipid Panel (11/21/21 06:00) Ed Iv/Invasive Line Start (11/20/21 10:24) Lipase (11/20/21 10:24) Bnp Dg (11/20/21 10:24) Fibrin Degradation Products (11/20/21 10:24) Troponin I [place] (11/20/21 10:24) Aspirin Chewable Tablet (Baby Aspirin Ch (11/20/21 10:30) Ct Angio Chest W (11/20/21 11:19) Iohexol Injection (Omnipaque 350 Mg/Ml 1 (11/20/21 11:30) Received Contrast (Hold Metformin- Contr (11/20/21 11:30) Ns (Ivpb) (Sodium Chloride 0.9% Ivpb Bag (11/20/21 11:30) Sodium Chloride Flush (Catheter Flush Sy (11/20/21 11:30) Troponin I Dg (11/20/21 12:19) Medications Given in ED Current Medications Medications Dose Ordered Sig/[place] Route Start Time Stop Time Status Last Admin Dose Admin Aspirin 324 mg ONCE ONCE PO 11/20/21 10:30 11/20/21 10:31 DC 11/20/21 10:46 324 MG Iohexol 100 ml ONCE ONCE IV 11/20/21 11:30 11/20/21 11:31 DC 11/20/21 11:45 80 ML Sodium Chloride 10 ml NEEDED PRN IV 11/20/21 11:30 11/20/21 11:45 10 ML Sodium Chloride 100 ml ONCE ONCE IV 11/20/21 11:30 11/20/21 11:31 DC 11/20/21 11:45 80 ML Vital Signs/I&O 11/20/21 10:18 Temp 36.3 Pulse 99 Resp 16 B/P (MAP) 166/110 (128) Pulse Ox 93 O2 Delivery Room Air Blood Pressure Mean: 128 Departure Communication (Admissions) She is aware of the cystic structure on the left kidney and has had it biopsied and benignity confirmed 1310-son is at the bedside. She remains alert oriented very pleasant and asymptomatic. 2 - troponins, clear CT angio. Will discharge to home. Family Conversation NAME: YUNIEL DE GUZMAN [facility] REC#: [id number] PT STATUS: REG ER : 1945 PHYSICIAN: DUNIA SIERRA FINANCIAL AID COORDINATOR ADMIT DATE: 11/20/21/ER Draft Date of Exam:11/20/21 CT ANGIO CHEST W PROCEDURE: CT angiography Chest. TECHNIQUE: After intravenous administration of contrast, thin section axial CT angiography of the chest was performed. 3D MIP reconstructions were made. All CT scans use one or more of the following dose optimizing techniques: Automated exposure control, MA and/or KvP adjustment based on a patient size and exam type, or iterative reconstruction. INDICATION: Dyspnea, chest pain. COMPARISON: 03/12/2020. FINDINGS: Vasculature: No pulmonary emboli. No CT evidence of pulmonary hypertension or right ventricular strain. Normal-caliber thoracic aorta. The aorta is not opacified and therefore cannot be assessed for dissection. Heart and mediastinum: Visualized thyroid is normal. No supraclavicular, axillary, or intra-thoracic lymphadenopathy. Unchanged cardiomegaly with enlargement of the atria. Pleura: No pleural effusion or pneumothorax. Lungs and airway: No endoluminal lesion in the trachea or central bronchi. Mild smooth septal thickening within the lung apices. There are a few scattered areas of ground-glass attenuation present within the lower lobes. No suspicious pulmonary nodules. Upper abdomen: The mildly complicated exophytic cyst in the upper pole left kidney is unchanged since CT of 09/13/2021. Musculoskeletal: No concerning osseous lesion. IMPRESSION: 1. No pulmonary emboli. 2. Mild pulmonary edema. 3. Mildly complicated exophytic cystic structure in the upper pole left kidney is unchanged since 09/13/2021. If not already performed, nonemergent Urology consultation is advised for follow-up management as there is a possibility this could represent a cystic neoplasm. Dictated on workstation # [id number] Dict: 11/20/21 1206 Trans: 11/20/21 1215 [id number] Interpreted by: GERARDO MCCALLUM MD Electronically signed by: NAME: YUNIEL DE GUZMAN [facility] REC#: [id number] PT STATUS: REG ER : 1945 PHYSICIAN: DUNIA SIERRA APRN ADMIT DATE: 11/20/21/ER Draft Date of Exam:11/20/21 CHEST 1 VIEW, AP/PA ONLY HISTORY: Chest pain. COMPARISON: 03/12/2020. TECHNIQUE: Frontal view of the chest. FINDINGS: There is mild elevation of the right hemidiaphragm, similar to the prior exam. The cardiac silhouette is stable in size. Sternotomy wires are noted. Thoracic spinal cord stimulator is present. There is increased airspace opacity at the right lung base. There is mild central vascular congestion. IMPRESSION: 1. Mild central vascular congestion with right basilar airspace opacity which may be due to atelectasis or infiltrate. Dictated on workstation # [id number] Dict: 11/20/21 1054 Trans: 11/20/21 1058 [id number] Interpreted by: JAZ COTA MD Electronically signed by: Impression Primary Impression: Pleuritic chest pain Disposition: 01 HOME, SELF-CARE Condition: Stable Departure-Patient Inst. Decision time for Depature: 13:09 Referrals: CAPRI FRAGOSO MD (PCP/Family) Primary Care Physician Patient Instructions: Pleuritic Chest Pain Add. Discharge Instructions: 1. Take Tylenol and ibuprofen as needed for pain. Return to ER for any concer ns. Follow-up with your doctor later this week. All discharge instructions reviewed with patient and/or family. Voiced underst anding. Copy Copies To 1: CAPRI FRAGOSO MD, PETER J APRN Nov 20, 2021 10:37
[2021-11-20 10:46] LABS: BASOPHILS # (AUTO) 0.1 10^3/uL (0.0-0.1); BASOPHILS % (AUTO) 1 % (0-10); EOSINOPHILS # (AUTO) 0.3 10^3/uL (0.0-0.3); EOSINOPHILS % (AUTO) 3 % (0-10); HEMATOCRIT 35 % (35-52); HEMOGLOBIN 11.8 g/dL (11.5-16.0); LYMPHOCYTES # (AUTO) 1.3 10^3/uL (1.0-4.0); LYMPHOCYTES % (AUTO) 13 % (12-44); MEAN CORPUSCULAR HEMOGLOBIN 30 pg (25-34); MEAN CORPUSCULAR HGB CONC 34 g/dL (32-36); MEAN CORPUSCULAR VOLUME 89 fL (80-99); MEAN PLATELET VOLUME 10.4 fL (9.0-12.2); MONOCYTES % (AUTO) 10 % (0-12); NEUTROPHILS # (AUTO) 7.2 10^3/uL (1.8-7.8); NEUTROPHILS % (AUTO) 73 % (42-75); PLATELET COUNT 143 10^3/uL (130-400); WHITE BLOOD COUNT 9.9 10^3/uL (4.3-11.0)
[2021-11-20 10:56] LABS: INR 1.1 (0.8-1.4); PROTHROMBIN TIME PATIENT 14.4 SEC (12.2-14.7)
[2021-11-20 10:59] LABS: POTASSIUM 3.6 MMOL/L (3.6-5.0)
--- NOTE | 2021-11-20 10:59 | Diagnostic Imaging Report ---
HISTORY: Chest pain. COMPARISON: 03/12/2020. TECHNIQUE: Frontal view of the chest. FINDINGS: There is mild elevation of the right hemidiaphragm, similar to the prior exam. The cardiac silhouette is stable in size. Sternotomy wires are noted. Thoracic spinal cord stimulator is present. There is increased airspace opacity at the right lung base. There is mild central vascular congestion. IMPRESSION: 1. Mild central vascular congestion with right basilar airspace opacity which may be due to atelectasis or infiltrate. Dictated by: Dictated on workstation # [id number]
[2021-11-20 11:02] LABS: TOTAL PROTEIN 7.1 GM/DL (6.4-8.2)
[2021-11-20 11:04] LABS: BILIRUBIN,TOTAL 0.8 MG/DL (0.1-1.0)
[2021-11-20 11:05] LABS: CREATININE SERUM 1.03 MG/DL (0.60-1.30)
[2021-11-20 11:08] LABS: MAGNESIUM 1.9 MG/DL (1.6-2.4)
[2021-11-20] MEDS ORDERED: NS 100 ML (IVPB) BAG IV ONE (11:30)
[2021-11-20] MEDS ORDERED: HOLD METFORMIN - RECEIVED CONTRAST 20 ML VIAL IV SCH (11:30)
[2021-11-20] MEDS ORDERED: IOHEXOL 350 MG/ML 100 ML (OMNIPAQUE 350) VIAL IV ONE (11:30)
[2021-11-20] MEDS ORDERED: CATHETER FLUSH 10 ML SYR IV PRN (11:30)
--- NOTE | 2021-11-20 12:16 | Diagnostic Imaging Report ---
PROCEDURE: CT angiography Chest. TECHNIQUE: After intravenous administration of contrast, thin section axial CT angiography of the chest was performed. 3D MIP reconstructions were made. All CT scans use one or more of the following dose optimizing techniques: Automated exposure control, MA and/or KvP adjustment based on a patient size and exam type, or iterative reconstruction. INDICATION: Dyspnea, chest pain. COMPARISON: 03/12/2020. FINDINGS: Vasculature: No pulmonary emboli. No CT evidence of pulmonary hypertension or right ventricular strain. Normal-caliber thoracic aorta. The aorta is not opacified and therefore cannot be assessed for dissection. Heart and mediastinum: Visualized thyroid is normal. No supraclavicular, axillary, or intra-thoracic lymphadenopathy. Unchanged cardiomegaly with enlargement of the atria. Pleura: No pleural effusion or pneumothorax. Lungs and airway: No endoluminal lesion in the trachea or central bronchi. Mild smooth septal thickening within the lung apices. There are a few scattered areas of ground-glass attenuation present within the lower lobes. No suspicious pulmonary nodules. Upper abdomen: The mildly complicated exophytic cyst in the upper pole left kidney is unchanged since CT of 09/13/2021. Musculoskeletal: No concerning osseous lesion. IMPRESSION: 1. No pulmonary emboli. 2. Mild pulmonary edema. 3. Mildly complicated exophytic cystic structure in the upper pole left kidney is unchanged since 09/13/2021. If not already performed, nonemergent Urology consultation is advised for follow-up management as there is a possibility this could represent a cystic neoplasm. Dictated by: Dictated on workstation # [id number]
[2021-11-20 13:14] VITALS: BP 130/71
== END 2021-11-20 13:14 | disposition home or self-care (01) ==
LOC: EDUNIT# 10:16 → ER 10:17
DX: R07.81 Pleurodynia (principal)
CPT/HCPCS: 36415; 71045; 71275; 80053; 83690; 83735; 83874; 83880; 84484; 85025; 85379; 85610; 85730; 93005; 93041

== ENCOUNTER → 2022-01-31 | Outpatient (CLI) | payer MEDICARE ==
[~2022-01-31] VITALS: Ht 165 cm; Wt 66.8 kg
[~2022-01-31] MED LIST changes: +ACETAMINOPHEN 500 MG TAB (TYLENOL) PO PRN; +BEBTELOVIMAB 175 MG/2 ML VIAL IV ONE; +EPINEPHrine INJECTION 1 MG/ML AMP IM PRN; +NF-CRES10T PO; +ONDANSETRON 4 MG/2 ML (SDV) Z0FRAN IV PRN; -ROSU10TA22 PO; +diphenhydrAMINE 50 MG/ML INJ (BENADRYL) IV PRN
[2022-01-31 11:20] VITALS: BP 135/75
[2022-01-31 12:17] VITALS: BP 129/71
== END ==
LOC: INFUSION 11:06
PROVIDERS: ATTEND Family Medicine
DX: U07.1 COVID-19 (principal)

== ENCOUNTER 2023-01-02 20:12 | Emergency (ER) | payer MEDICARE ==
[~2023-01-02 20:12] MED LIST changes: -ACETAMINOPHEN 500 MG TAB (TYLENOL) PO PRN; -BEBTELOVIMAB 175 MG/2 ML VIAL IV ONE; -EPINEPHrine INJECTION 1 MG/ML AMP IM PRN; -ONDANSETRON 4 MG/2 ML (SDV) Z0FRAN IV PRN; -POTA10CA43 PO; +POTA10CA44 PO; -diphenhydrAMINE 50 MG/ML INJ (BENADRYL) IV PRN
--- NOTE | 2023-01-02 20:28 | ED General ---
General Stated Complaint: HIGH PULSE RATE|DIZZNESS|A FIB Source of Information: Patient Exam Limitations: No Limitations History of Present Illness Date Seen by Provider: January 02, 2023 Time Seen by Provider: 20:26 Initial Comments Patient is a 77-year-old female who presents ED with family for dizziness, low blood pressure and fast heart rate. She states yesterday she had a blood pressure as low as 97/68. Patient states today around 5:00 started feeling dizzy while at home. Had associated shortness of breath but that appears to be intermittent. No specific chest pain. She took her heart rate which read 137. She took her carvedilol and immediately came to the ER. History of A-fib currently on Eliquis. History of open heart surgery falls Dr. Ortez at [place]. She states she feels a little nauseous but denies of any abdominal pain, chest pain, headache. Intermittent dizziness and denies the feeling of the room spinning. Denies of any focal neural deficits, visual loss, dysuria, fever, cough, dysuria. Allergies and Home Medications Allergies Coded Allergies: Penicillins (Unverified Allergy, Unknown, 06/20/15) Patient Home Medication List Home Medication List Reviewed: Yes Apixaban (Eliquis) 5 Mg Tablet, 5 MG PO BID, (Reported) Entered as Reported by: EDWARD POWERS on 03/13/20 1349 Aspirin (Aspirin) 81 Mg Tab.chew, 81 MG PO DAILY, (Reported) Entered as Reported by: LORY DE LA GARZA on 06/20/152332 B Complex with Vitamin C (Vitamin B-Complex & C) 1 Each Tablet.er, 1 TAB PO DAILY, (Reported) Entered as Reported by: LORY DE LA GARZA on 06/20/15 2333 Bupropion HCl (Bupropion Xl) 300 Mg Tab.er.24h, 300 MG PO DAILY, (Reported) Entered as Reported by: LORY DE LA GARZA on 06/20/15 233 Carvedilol (Coreg) 6.25 Mg Tablet, 6.25 MG PO BID, (Reported) Entered as Reported by: EDWARD POWERS on 03/13/20 1349 Diclofenac Sodium (Voltaren) 100 Gm Gel..gram., 1 APPLIC TP BID PRN for PAIN- BREAKTHROUGH, (Reported) Entered as Reported by: EDWARD POWERS on 03/13/20 134 Digoxin (Digoxin) 125 Mcg Tablet, 125 MCG PO DAILY, (Reported) Entered as Reported by: EDWARD POWERS on 03/13/20 134 Diltiazem HCl (Cartia Xt) 240 Mg Cap.er.24h, 240 MG PO DAILY, (Reported) Entered as Reported by: EDWARD POWERS on 03/13/20 134 Docusate Sodium (Colace) 100 Mg Capsule, 100-300 MG PO DAILY PRN for CONSTIPATION-1ST LINE, (Reported) Entered as Reported by: LORY DE LA GARZA on 06/20/15 233 Escitalopram Oxalate (Escitalopram Oxalate) 20 Mg Tablet, 20 MG PO HS, (Reported) Entered as Reported by: LORY DE LA GARZA on 06/20/152332 Furosemide (Lasix) 40 Mg Tablet, 40 MG PO Q48H, (Reported) Entered as Reported by: EDWARD POWERS on 03/13/20 134 Gabapentin (Gabapentin) 100 Mg Capsule, 100 MG PO TID, (Reported) Entered as Reported by: LORY DE LA GARZA on 06/20/152332 Hyoscyamine Sulfate (Hyoscyamine Sulfate) 0.125 Mg Tab.subl, 0.125 MG SL Q4H PRN for SPASMS, (Reported) Entered as Reported by: EDWARD POWERS on 03/13/20 135 Isosorbide Mononitrate (Isosorbide Mononitrate ER) 30 Mg Tab.er.24h, 30 MG PO B ID, (Reported) Entered as Reported by: EDWARD POWERS on 03/13/20 134 Lorazepam (Ativan) 1 Mg Tablet, 1.5-2 MG PO HS PRN for SLEEP, (Reported) Entered as Reported by: EDWARD POWERS on 03/13/20 134 Losartan Potassium (Losartan Potassium) 50 Mg Tablet, 50 MG PO BID, (Reported) Entered as Reported by: EDWARD POWERS on 03/13/20 134 Meloxicam (Meloxicam) 15 Mg Tablet, 15 MG PO 1200, (Reported) Entered as Reported by: EDWARD POWERS on 03/13/20 134 Multivitamin (Multivitamin) 1 Each Tablet, 1 EACH PO DAILY, (Reported) Entered as Reported by: EDWARD POWERS on 03/13/20 1349 Ondansetron HCl (Zofran) 4 Mg Tab, 4 MG PO Q4H PRN for PAIN-MILD (1-4), (Reported) Entered as Reported by: EDWARD POWERS on 03/13/20 1350 Oxycodone HCl/Acetaminophen (Oxycodone-Acetaminophen 10-325) 1 Each Tablet, 1 EACH PO Q8H PRN for PAIN-MODERATE, (Reported) Entered as Reported by: EDWARD POWERS on 03/13/20 1349 Rosuvastatin Calcium (Crestor) 10 Mg Tablet, 10 MG PO HS, (Reported) Entered as Reported by: LORY DE LA GARZA on 06/20/15 2333 Spironolactone (Aldactone) 25 Mg Tablet, 25 MG PO DAILY, (Reported) Entered as Reported by: EDWARD POWERS on 03/13/20 1349 Review of Systems Review of Systems Constitutional: No chills, No diaphoresis, No fever, No malaise, No weakness EENTM: No ear pain, No double vision Respiratory: No dyspnea on exertion; short of breath Cardiovascular: No chest pain Gastrointestinal: No abdominal pain, No diarrhea; nausea; No vomiting Genitourinary: No decreased output, No discharge Musculoskeletal: No back pain, No joint pain Skin: No change in color, No change in hair/nails All Other Systems Reviewed Negative Unless Noted: Yes Past [id number]-Sepbgb Hx Immunizations Up To Date Tetanus Booster (TDap): Less than 5yrs PED Vaccines UTD: No Seasonal Allergies Seasonal Allergies: No Past Medical History Surgeries: Yes (implanted nerve stimulator, MITRAL AND TRICUSPID VALVE REPAIRS) Cardiac, Hysterectomy, Tonsillectomy Respiratory: No Currently Using CPAP: No Currently Using BIPAP: No Cardiac: Yes High Cholesterol, Hypertension, Valvular Heart Disease Neurological: Yes (spinal stenosis) Stroke Reproductive Disorders: No Female Reproductive Disorders: Denies BACTERIOLOGIST DAIRY History: Hysterectomy Sexually Transmitted Disease: No HIV/AIDS: No Genitourinary: No Gastrointestinal: Yes Irritable Bowel Musculoskeletal: Yes (SPINAL STENOSIS- STIMULATOR IN BACK) Endocrine: No HEENT: No Loss of Vision: Denies Hearing Impairment: Hard of Hearing Cancer: No Psychosocial: Yes Anxiety, Depression Integumentary: No Blood Disorders: No Adverse Reaction/Blood Tranf: No Family Medical History Patient reports no known family medical history. No Pertinent Family Hx, Stroke Physical Exam Vital Signs Vital Signs - First Documented 01/02/23 20:16 Temp 36.2 Pulse 87 Resp 12 B/P (MAP) 156/91 (112) Pulse Ox 97 O2 Delivery Room Air Capillary Refill : Height, Weight, BMI Height: 5'7.00" Weight: 162lbs. 7.0oz. 73.094156lh; 24.00 BMI Method:Stated General Appearance: No Apparent Distress, WD/WN Eyes: Bilateral Eye Normal Inspection, Bilateral Eye PERRL, Bilateral Eye Abnormal EOM HEENT: PERRL/EOMI, TMs Normal, Normal ENT Inspection, Pharynx Normal Neck: Full Range of Motion, Normal Inspection, Non Tender, Supple Respiratory: Chest Non Tender, Lungs Clear, Normal Breath Sounds, No Accessory Muscle Use, No Respiratory Distress Cardiovascular: Regular Rate, Rhythm, No Edema, No Gallop, No JVD Gastrointestinal: Normal Bowel Sounds, No Organomegaly, No Pulsatile Mass Back: Normal Inspection, No CVA Tenderness Extremity: Normal Capillary Refill, Normal Inspection, Normal Range of Motion, Non Tender, No Calf Tenderness Neurologic/Psychiatric: Alert, Oriented x3, No Motor/Sensory Deficits, Normal Mood/Affect, delivery clerk II-XII Norm as Tested Skin: Normal Color, Warm/Dry Progress/Results/Core Measures Suspected Sepsis SIRS Temperature: Pulse: Respiratory Rate: Laboratory Tests 01/02/23 20:21: White Blood Count 6.4 Blood Pressure / Mean: Laboratory Tests 01/02/23 20:21: Creatinine 1.23, INR Comment 1.2, Platelet Count 173, Total Bilirubin 0.6 Results/Orders Lab Results Laboratory Tests Test 01/02/23 20:21 Range/Units White Blood Count 6.4 4.3-11.0 10^3/uL Red Blood Count 5.02 3.80-5.11 10^6/uL Hemoglobin 15.0 11.5-16.0 g/dL Hematocrit 43 35-52 % Mean Corpuscular Volume 86 80-99 fL Mean Corpuscular Hemoglobin 30 25-34 pg Mean Corpuscular Hemoglobin Concent 35 32-36 g/dL Red Cell Distribution Width 12.2 10.0-14.5 % Platelet Count 173 130-400 10^3/uL Mean Platelet Volume 10.5 9.0-12.2 fL Immature Granulocyte % (Auto) 0 % Neutrophils (%) (Auto) 68 42-75 % Lymphocytes (%) (Auto) 20 12-44 % Monocytes (%) (Auto) 11 0-12 % Eosinophils (%) (Auto) 1 0-10 % Basophils (%) (Auto) 1 0-10 % Neutrophils # (Auto) 4.3 1.8-7.8 10^3/uL Lymphocytes # (Auto) 1.3 1.0-4.0 10^3/uL Monocytes # (Auto) 0.7 0.0-1.0 10^3/uL Eosinophils # (Auto) 0.0 0.0-0.3 10^3/uL Basophils # (Auto) 0.1 0.0-0.1 10^3/uL Immature Granulocyte # (Auto) 0.0 0.0-0.1 10^3/uL Prothrombin Time 15.4 H 12.2-14.7 SEC INR Comment 1.2 0.8-1.4 Activated Partial Thromboplast Time 49 H 24-35 SEC Sodium Level 136 135-145 MMOL/L Potassium Level 3.7 3.6-5.0 MMOL/L Chloride Level 97 L 98-107 MMOL/L Carbon Dioxide Level 29 21-32 MMOL/L Anion Gap 10 5-14 MMOL/L Blood Urea Nitrogen 24 H 7-18 MG/DL Creatinine 1.23 0.60-1.30 MG/DL Estimat Glomerular Filtration Rate 45 BUN/Creatinine Ratio 20 Glucose Level 141 H 70-105 MG/DL Calcium Level 10.6 H 8.5-10.1 MG/DL Corrected Calcium 8.5-10.1 MG/DL Magnesium Level 2.1 1.6-2.4 MG/DL Total Bilirubin 0.6 0.1-1.0 MG/DL Aspartate Amino Transf (AST/SGOT) 26 5-34 U/L Alanine Aminotransferase (ALT/SGPT) 22 0-55 U/L Alkaline Phosphatase 69 40-136 U/L Myoglobin 67.9 10.0-92.0 NG/ML Troponin I < 0.028 <0.028 NG/ML B-Type Natriuretic Peptide 222.7 H <100.0 PG/ML Total Protein 7.8 6.4-8.2 GM/DL Albumin 4.6 H 3.2-4.5 GM/DL Lipase 34 8-78 U/L My Orders Orders - JANET BUTLER PA Cbc With Automated Diff (01/02/23 20:25) Magnesium (01/02/23 20:25) Chest 1 View, Ap/Pa Only (01/02/23 20:25) Ekg Tracing (01/02/23 20:25) Comprehensive Metabolic Panel (01/02/23 20:25) Myoglobin Serum (01/02/23 20:25) Protime With Inr (01/02/23 20:25) Partial Thromboplastin Time (01/02/23 20:25) Monitor-Rhythm Ecg Trace Only (01/02/23 20:25) Ed Iv/Invasive Line Start (01/02/23 20:25) Lipase (01/02/23 20:25) Bnp [place] (01/02/23 20:25) Troponin I Dg (01/02/23 20:25) Vital Signs/I&O 01/02/23 01/02/23 20:16 21:52 Temp 36.2 Pulse 87 88 Resp 12 12 B/P (MAP) 156/91 (112) 172/81 Pulse Ox 97 97 O2 Delivery Room Air Room Air Capillary Refill : ECG Comment Atrial flutter, 65 bpm, QRS duration 100 MS, QTc 407 MS Departure Communication (PCP) Reviewed previous ER visits, H&P, lab testing. Differential diagnosis of A-fib with RVR, hypotension, hypertension, ACS. Stress test pharmacological in 2019 showed ejection fraction 53% negative for any ischemia. Patient only complaint is some mild dizziness on arrival. Had some shortness of breath today noted her heart rate as high as 137. She did not take her blood pressure medication this morning secondary to the hypotension. After noting a fast heart rate she took carvedilol right before arrival. she contacted the nurse of Dr. Ortez who recommend stopping medication. Recently placed on new medication she cannot recall. She does take Lasix. Currently on Eliquis. Patient slightly hypertensive. Pressure 148/103. EKG was obtained showed atrial flutter 65 bpm chronic without any acute change. Due to current complaint CBC, CMP troponin BNP chest x-ray was ordered. Chest x-ray was negative for pneumonia, pleural effusion. CBC grossly unremarkable. CMP showed chloride 97, blood sugar 141. Normal kidney function and liver function. Troponin normal. BNP slightly elevated to 222. Similar to previous lab work from October 2021. She does not appear fluid overloaded. No active shortness of breath. No abdominal tenderness. No urinary symptoms. She is afebrile. Vital signs otherwise stable. She was not hypotensive. Discussed continue taking carvedilol to help with her heart rate and BP. Recommend following up with her weight inspector for further evaluation. No active dizziness at this time. Denies room spinning, headache. She has no focal neural deficits suggesting further imaging. Nonspecific dizziness but could be associated to the change in blood pressure and heart rate. If any worsening symptoms return back to ED. patient agrees with plan of action. Impression Primary Impression: Dizziness Disposition: HOME, SELF-CARE Condition: Stable Departure-Patient Inst. Decision time for Depature: 21:36 Referrals: SELFCAPRI MD (PCP/Family) Primary Care Physician Patient Instructions: Dizziness, Adult ED Add. Discharge Instructions: Continue monitoring blood pressure at home. Recommend taking her carvedilol. Continue with your Lasix. Follow-up with your primary care physician next 2 to 3 days for reevaluation. JANET BUTLER January 02, 2023 20:28
[2023-01-02 20:42] LABS: BASOPHILS # (AUTO) 0.1 10^3/uL (0.0-0.1); BASOPHILS % (AUTO) 1 % (0-10); EOSINOPHILS % (AUTO) 1 % (0-10); HEMATOCRIT 43 % (35-52); LYMPHOCYTES # (AUTO) 1.3 10^3/uL (1.0-4.0); LYMPHOCYTES % (AUTO) 20 % (12-44); MEAN CORPUSCULAR HEMOGLOBIN 30 pg (25-34); MEAN CORPUSCULAR HGB CONC 35 g/dL (32-36); MEAN CORPUSCULAR VOLUME 86 fL (80-99); MEAN PLATELET VOLUME 10.5 fL (9.0-12.2); MONOCYTES # (AUTO) 0.7 10^3/uL (0.0-1.0); MONOCYTES % (AUTO) 11 % (0-12); NEUTROPHILS # (AUTO) 4.3 10^3/uL (1.8-7.8); NEUTROPHILS % (AUTO) 68 % (42-75); PLATELET COUNT 173 10^3/uL (130-400); WHITE BLOOD COUNT 6.4 10^3/uL (4.3-11.0)
[2023-01-02 20:48] LABS: INR 1.2 (0.8-1.4); PROTHROMBIN TIME PATIENT 15.4 SEC (12.2-14.7)
--- NOTE | 2023-01-02 20:48 | Diagnostic Imaging Report ---
CHEST 1 VIEW, AP/PA ONLY INDICATION: Chest pain. COMPARISON: Chest radiograph on 11/20/2021.. FINDINGS: Lungs: Normal lung volume. No focal consolidation. Stable pulmonary vasculature. Pleura: No pleural effusion or pneumothorax. Heart and Mediastinum: Cardiomegaly. Vascularity is within normal limits.. Poststernotomy changes. Osseous Structures and Soft Tissues: No acute osseous abnormality. Normal soft tissues. IMPRESSION: No acute cardiopulmonary process. Dictated by: Dictated on workstation # [id number]
[2023-01-02 20:51] LABS: ALANINE AMINOTRANSFERASE 22 U/L (0-55); ALBUMIN 4.6 GM/DL (3.2-4.5); ALKALINE PHOSPHATASE 69 U/L (40-136); BILIRUBIN,TOTAL 0.6 MG/DL (0.1-1.0); BUN/CREATININE RATIO 20; CALCIUM 10.6 MG/DL (8.5-10.1); CARBON DIOXIDE 29 MMOL/L (21-32); CHLORIDE 97 MMOL/L (98-107); CREATININE SERUM 1.23 MG/DL (0.60-1.30); GFR ESTIMATED 45; GLUCOSE 141 MG/DL (70-105); LIPASE 34 U/L (8-78); MAGNESIUM 2.1 MG/DL (1.6-2.4); POTASSIUM 3.7 MMOL/L (3.6-5.0); SODIUM 136 MMOL/L (135-145); TOTAL PROTEIN 7.8 GM/DL (6.4-8.2)
[2023-01-02 21:52] VITALS: BP 172/81
== END 2023-01-02 21:52 | disposition home or self-care (01) ==
LOC: EDUNIT# 20:12 → ER 20:16
DX: R42 Dizziness and giddiness (principal); I48.91 Unspecified atrial fibrillation; Z79.01 Long term (current) use of anticoagulants
CPT/HCPCS: 36415; 71045; 80053; 83690; 83735; 83874; 83880; 84484; 85025; 85610; 85730; 93005; 93041